=== PATIENT | male | born 1975 | race Caucasian/White ===

== ENCOUNTER → 2019-04-10 12:07 | Outpatient (CLI) | payer OTHER, SELFPAY ==
--- NOTE | 2019-04-10 12:14 | RAD_ITS ---
STUDY: X-RAY CHEST REASON FOR EXAM: Male, 44 years old. Fecal debris within. TECHNIQUE: PA and lateral views of the chest. COMPARISON: None. FINDINGS: There is a small calcified granuloma within the left mid lower lung field measuring 7 mm. Remainder of the lungs are clear and expanded. There is no demonstrated pleural abnormality. Normal size heart. Normal mediastinum and yamile. Normal visualized pulmonary arteries. Normal visualized aortic arch and descending thoracic aorta. Normal visualized thoracic spine. Postoperative changes of the right humeral head with fixation screws suggestive of rotator cuff disease. There is no demonstrated abnormality of the visualized soft tissue structures of the upper abdomen. RAD/Chest PA and Lateral IMPRESSION: No acute cardiopulmonary disease. Electronically Signed: Sena James MD at 1:32 EST , Service support ,
== END ==
LOC: MTLAB 12:10 → MTRAD 12:14
PROVIDERS: Family Provider Family Medicine; PCP Family Medicine; Referring Provider Family Medicine; Visit Provider Family Medicine
DX: J45.909 Unspecified asthma, uncomplicated (principal)
CPT/HCPCS: 71046

== ENCOUNTER → 2019-10-18 08:48 | Outpatient (CLI) | payer OTHER, SELFPAY ==
[2019-10-18 10:25] LABS: Absolute Lymphocyte Count 2.11 X10^3/uL (0.83-4.51); Absolute Neutrophil Count 6.6 X10^3/uL (2.0-7.7); Basophil# 0.06 X10^3/uL; Basophil% 0.6 % (0-1); Eosinophil# 0.47 X10^3/uL; Eosinophils% 4.8 % (0-5); Hematocrit 50.7 % (40-54); Hemoglobin 16.7 g/dL (13.0-16.5); Lymphocyte # 2.11 X10^3/ul (4.0); Lymphocyte % 21.4 % (19-41); Mean Corp Hgb Conc 32.9 g/dL (32-36); Mean Corpuscular Hgb 29.6 pg (27.0-32.0); Mean Corpuscular Volume 89.9 fL (80-94); Mean Platelet Vol. 10.2 fl (6.2-12.0); Monocyte# 0.58 X10^3/uL; Monocyte% 5.9 % (0-10); NRBC Flagged by Analyzer 0 % (0-5); Neutrophil # 6.61 X10^3/uL (2.7-7.7); Neutrophil % 66.9 % (47-70); Platelet Count 258 K/mm3 (150-450); RBC Distribution Width CV 13.8 % (11.6-14.6); RBC Distribution Width SD 45.2 fl (35.1-43.9); Red Blood Count 5.64 M/mm3 (4.6-6.2); White Blood Count 9.9 K/mm3 (4.4-11.0)
[2019-10-18 10:32] LABS: Anion Gap 6 (5-15); BUN 9 mg/dL (7-18); BUN/Creat Ratio 8.9 RATIO (10-20); Calcium,Total 8.9 mg/dL (8.5-10.1); Chloride 110 mmol/L (98-107); Creatinine, Serum 1.01 mg/dL (0.70-1.30); EST Glomerular Filtration Rate 85 mL/min (>60); Est Glom Filt Rate - Afr Amer 103 mL/min (>60); Glucose 98 mg/dL (74-106); Potassium 4.1 mmol/L (3.5-5.1); Sodium Level 141 mmol/L (136-145)
== END ==
PROVIDERS: PCP Family Medicine; Referring Provider Family Medicine; Visit Provider Family Medicine
DX: I10 Essential (primary) hypertension (principal); J45.909 Unspecified asthma, uncomplicated
CPT/HCPCS: 36415; 80048; 85025

== ENCOUNTER → 2020-04-09 09:42 | Outpatient (CLI) | payer OTHER, SELFPAY ==
[2020-04-09 12:36] LABS: Absolute Lymphocyte Count 2.07 X10^3/uL (0.83-4.51); Absolute Neutrophil Count 5.1 X10^3/uL (2.0-7.7); Basophil# 0.06 X10^3/uL; Basophil% 0.7 % (0-1); Eosinophil# 0.34 X10^3/uL; Hematocrit 50.8 % (40-54); Hemoglobin 16.5 g/dL (13.0-16.5); Lymphocyte # 2.07 X10^3/ul (4.0); Lymphocyte % 24.5 % (19-41); Mean Corp Hgb Conc 32.5 g/dL (32-36); Mean Corpuscular Hgb 29.3 pg (27.0-32.0); Mean Corpuscular Volume 90.2 fL (80-94); Mean Platelet Vol. 10.4 fl (6.2-12.0); Monocyte# 0.72 X10^3/uL; Monocyte% 8.5 % (0-10); NRBC Flagged by Analyzer 0 % (0-5); Neutrophil # 5.12 X10^3/uL (2.7-7.7); Neutrophil % 60.5 % (47-70); Platelet Count 275 K/mm3 (150-450); RBC Distribution Width CV 13.2 % (11.6-14.6); RBC Distribution Width SD 43.4 fl (35.1-43.9); Red Blood Count 5.63 M/mm3 (4.6-6.2); White Blood Count 8.5 K/mm3 (4.4-11.0)
[2020-04-09 12:49] LABS: Anion Gap 5 (5-15); BUN 17 mg/dL (7-18); BUN/Creat Ratio 18.1 RATIO (10-20); Calcium,Total 9.3 mg/dL (8.5-10.1); Chloride 106 mmol/L (98-107); Cholesterol 247 mg/dL (200); Creatinine, Serum 0.94 mg/dL (0.70-1.30); EST Glomerular Filtration Rate 92 mL/min (>60); Est Glom Filt Rate - Afr Amer 112 mL/min (>60); Glucose 73 mg/dL (74-106); High Density Lipoprotein 34 mg/dL; Potassium 3.9 mmol/L (3.5-5.1); Sodium Level 139 mmol/L (136-145); Triglycerides 190 mg/dL; Very Low Density Lipoprotein 38 mg/dL (5-40)
[2020-04-09 13:09] LABS: Microalbumin,Random Urine < 5.0 mg/L (NO RANGE EST.)
== END ==
PROVIDERS: PCP Family Medicine; Referring Provider Family Medicine; Visit Provider Family Medicine
DX: I10 Essential (primary) hypertension (principal); F17.200 Nicotine dependence, unspecified, uncomplicated
CPT/HCPCS: 36415; 80048; 80061; 82043; 82570; 85025

== ENCOUNTER → 2021-11-26 | Outpatient (CLI) | payer OTHER, SELFPAY ==
[2021-11-26 10:28] LABS: Erythrocyte Sedimentation Rate 42 mm/hr (0-20)
[2021-11-26 10:29] LABS: Absolute Lymphocyte Count 1.38 X10^3/uL (0.83-4.51); Absolute Neutrophil Count 8.5 X10^3/uL (2.0-7.7); Basophil# 0.05 X10^3/uL; Basophil% 0.4 % (0-1); Eosinophil# 0.13 X10^3/uL; Eosinophils% 1.1 % (0-5); Hematocrit 45.8 % (40-54); Hemoglobin 15.4 g/dL (13.0-16.5); Lymphocyte # 1.38 X10^3/ul (0.83-4.51); Lymphocyte % 12.2 % (19-41); Mean Corp Hgb Conc 33.6 g/dL (32-36); Mean Corpuscular Volume 89.3 fL (80-94); Mean Platelet Vol. 10.2 fl (6.2-12.0); Monocyte# 1.24 X10^3/uL; Monocyte% 10.9 % (0-10); NRBC Flagged by Analyzer 0 % (0-5); Neutrophil # 8.47 X10^3/uL (2.7-7.7); Neutrophil % 74.7 % (47-70); Platelet Count 410 K/mm3 (150-450); RBC Distribution Width CV 13.1 % (11.6-14.6); RBC Distribution Width SD 42.9 fl (35.1-43.9); Red Blood Count 5.13 M/mm3 (4.6-6.2); White Blood Count 11.4 K/mm3 (4.4-11.0)
[2021-11-26 10:48] LABS: ALB/GLOB Ratio 0.8 RATIO (0.9-2.4); AST(SGOT) 15 U/L (15-37); Alanine Aminotransfer ALT/SGPT 27 U/L (16-61); Albumin, Serum 3.3 g/dL (3.2-5.0); Alkaline Phosphatase 78 U/L (45-117); Anion Gap 5 (5-15); BUN 19 mg/dL (7-18); BUN/Creat Ratio 17.6 RATIO (10-20); Calcium,Total 8.8 mg/dL (8.5-10.1); Chloride 108 mmol/L (98-107); Cholesterol 193 mg/dL (200); Creatinine, Serum 1.08 mg/dL (0.70-1.30); EST Glomerular Filtration Rate 78 mL/min (>60); Est Glom Filt Rate - Afr Amer 94 mL/min (>60); Globulin 4.2 g/dL (2.2-4.2); Glucose 91 mg/dL (74-106); High Density Lipoprotein 33 mg/dL; Potassium 3.8 mmol/L (3.5-5.1); Protein, Total 7.5 g/dL (6.4-8.2); Sodium Level 139 mmol/L (136-145); Triglycerides 180 mg/dL; Very Low Density Lipoprotein 36 mg/dL (5-40)
[2021-11-26 10:54] LABS: Microalbumin,Random Urine 7.5 mg/L (NO RANGE EST.); Microalbumin:Creatinine Ratio 4.8 mg/g CRE (<30 mg/g CRE)
== END | disposition home or self-care (01) ==
LOC: MFPLAB 08:34
PROVIDERS: PCP Family Medicine; Referring Provider Family Medicine; Visit Provider Family Medicine
DX: R53.83 Other fatigue (principal); E78.00 Pure hypercholesterolemia, unspecified; I10 Essential (primary) hypertension; J45.909 Unspecified asthma, uncomplicated
CPT/HCPCS: 36415; 80053; 80061; 82043; 82570; 84443; 85025; 85652

== ENCOUNTER 2021-11-27 16:31 | Emergency (ER) | payer OTHER, SELFPAY ==
[2021-11-27 16:34] VITALS: BP 166/87; PULSE 101; RESP 18; TEMP 36.9; O2SAT 96; BMI 31.0
--- NOTE | 2021-11-27 17:46 | CT_ITS ---
EXAM: CT ANGIOGRAPHY CHEST WITHOUT AND WITH INTRAVENOUS CONTRAST CLINICAL INDICATION: pulmonary embolism TECHNIQUE: Helically acquired angiography images were obtained of the chest without and with intravenous contrast. This CT exam was performed using one or more of the following dose reduction techniques: automated exposure control, adjustment of the mA and/or kV according to patient size, and/or use of iterative reconstruction technique. This report was created using [employer] report generation technology. MIP reconstructed images were created and reviewed. CONTRAST: IV 100mL Isovue-370 COMPARISON: None. FINDINGS: PULMONARY ARTERIES: Unremarkable. Normal in caliber. No evidence of pulmonary embolism. AORTA: Unremarkable. Normal in caliber. No evidence of dissection. GREAT VESSELS OF AORTIC ARCH: Unremarkable. Normal in caliber. No evidence of dissection. LUNGS AND PLEURAL SPACES: Calcified left lower lobe granuloma. No mass. No pleural effusion or thickening. No pneumothorax. HEART: Unremarkable. Heart size is normal. No pericardial effusion. No signs of right heart strain, ratio of right ventricle to left ventricle measures less than 1. MEDIASTINUM: Unremarkable. No mediastinal or hilar adenopathy. Esophagus is unremarkable. No hiatal hernia. THYROID: Unremarkable. No thyroid lesions. BONES/JOINTS: Unremarkable. No suspicious lytic or blastic abnormality. LYMPH NODES: Calcified lymph nodes in the left lung hilum. CT/CTA Chest W/WO Contrast IMPRESSION: 1. No acute findings. 2. Old healed granulomatous disease. Electronically Signed: Eladia Nieves MD at 19:16 EDT Reading Location ID and State: [id number] / Tel , Service support ,
[2021-11-27 17:58] LABS: Absolute Neutrophil Count 7.5 X10^3/uL (2.0-7.7); Basophil# 0.06 X10^3/uL; Basophil% 0.6 % (0-1); Eosinophil# 0.12 X10^3/uL; Eosinophils% 1.1 % (0-5); Hematocrit 44.2 % (40-54); Hemoglobin 15.1 g/dL (13.0-16.5); Lymphocyte % 19.6 % (19-41); Mean Corp Hgb Conc 34.2 g/dL (32-36); Mean Corpuscular Hgb 30.3 pg (27.0-32.0); Mean Corpuscular Volume 88.8 fL (80-94); Mean Platelet Vol. 10.1 fl (6.2-12.0); Monocyte# 0.93 X10^3/uL; Monocyte% 8.7 % (0-10); NRBC Flagged by Analyzer 0 % (0-5); Neutrophil # 7.45 X10^3/uL (2.7-7.7); Neutrophil % 69.4 % (47-70); Platelet Count 378 K/mm3 (150-450); RBC Distribution Width CV 13.2 % (11.6-14.6); RBC Distribution Width SD 43.1 fl (35.1-43.9); Red Blood Count 4.98 M/mm3 (4.6-6.2); White Blood Count 10.7 K/mm3 (4.4-11.0)
[2021-11-27 18:18] LABS: ALB/GLOB Ratio 0.8 RATIO (0.9-2.4); AST(SGOT) 19 U/L (15-37); Alanine Aminotransfer ALT/SGPT 27 U/L (16-61); Albumin, Serum 3.1 g/dL (3.2-5.0); Alkaline Phosphatase 75 U/L (45-117); Anion Gap 4 (5-15); BUN 13 mg/dL (7-18); BUN/Creat Ratio 11.7 RATIO (10-20); Calcium,Total 8.8 mg/dL (8.5-10.1); Chloride 109 mmol/L (98-107); Creatinine, Serum 1.11 mg/dL (0.70-1.30); EST Glomerular Filtration Rate 76 mL/min (>60); Est Glom Filt Rate - Afr Amer 91 mL/min (>60); Estimated Creatinine Clearance 91.27 ml/min; Glucose 108 mg/dL (74-106); Potassium 3.9 mmol/L (3.5-5.1); Protein, Total 7.1 g/dL (6.4-8.2); Sodium Level 140 mmol/L (136-145); Troponin-I HS 4 pg/mL (3.0-78.0)
--- NOTE | 2021-11-27 19:18 | EX.ED.DYSGE1 ---
HPI History of Present Illness Chief Complaint: Shortness of Breath Informant: patient Narrative Narrative: 46-year-old male states that he was recently diagnosed with COVID. He states that he continues to feel fatigue and have shortness of breath. He went to see his doctor yesterday as part of a yearly physical. Apparently a D-dimer was drawn which was elevated and he was sent to the emergency department today for CT to rule out pulmonary embolism. Patient does endorse some mild shortness of breath. States he was treated with Paxlovid and has asthma. He started to feel better but then started to feel worse again. PFSH PFSH Home Medications fluticasone 250 mcg-salmeterol 50 mcg/dose blistr powdr for inhalation (Advair Diskus) ea inhalation 11/27/21 [History Last Taken Unknown] fluticasone propionate 250 mcg/actuation blister powder for inhalation (Flovent Diskus) ea inhalation 11/27/21 [History Last Taken Unknown] pravastatin 10 mg tablet tab 11/27/21 [History Last Taken Unknown] quinapril 5 mg tablet tab 11/27/21 [History Last Taken Unknown] Allergy/AdvReac Type Severity Reaction Status Date / Time No Known Allergies Allergy Verified 11/27/21 16:34 Social History (Updated 11/27/21 @ 19:[address] Agus Willson, DO) Smoking Status: Current every day smoker tobacco type: cigarettes substance use type: does not use ROS ROS ED ROS Narrative Fatigue Constitutional Constitutional ED: Denies chills, fever(s) or weight loss Eyes Eyes: Denies change in vision or diplopia ENT ENT ED: Denies ear pain, rhinorrhea or sore throat Cardiovascular Cardiovascular: Denies chest pain, orthopnea, palpitations or racing heartbeat Respiratory/Chest Respiratory/Chest: Reports dyspnea; Denies cough or orthopnea Gastrointestinal Gastrointestinal: Denies abdominal pain, diarrhea, nausea or vomiting Genitourinary Genitourinary ED: Denies dysuria, hematuria or urinary frequency Musculoskeletal Musculoskeletal: Denies arthralgias or myalgias Integumentary Denies abscess or rash Neurologic Neurologic: Denies headache(s) or weakness Psychiatric Psychiatric: Denies anxiety, depression, suicidal ideation or suicidal thoughts Endocrine Endocrinology: Denies polydipsia, polyphagia or polyuria Allergic/Immunologic Allergic/Immunologic ED: Denies mouth swelling, tongue swelling or urticaria EXAM Physical Exam Const Vital Signs: 11/27/21 16:34 11/27/21 17:19 11/27/21 19:23 Temperature 98.5 F Temperature Source Temporal Pulse Rate 101 H 91 Respiratory Rate 18 18 Respiratory Effort Normal Non-Labored Respiratory Depth Normal Respiratory Pattern Normal Blood Pressure 166/87 H 131/88 H Blood Pressure Mean 113 Pulse Ox 96 96 Oxygen Delivery Method Room Air Positive well nourished and well developed General Appearance ED: well developed HEENT Reports normocephalic, head/scalp atraumatic and moist mucous membranes Eyes PERRL and EOMs intact bilaterally Neck no lymphadenopathy, supple and no JVD Resp normal respiratory effort and clear to auscultation bilaterally Cardio regular rate, regular rhythm and no murmurs GI normal to inspection, nondistended, normoactive bowel sounds and non-tender Palpation: soft Back/Spine no CVA tenderness and normal ROM Extremity normal to inspection General Extremety ED: Negative for edema General Extremity: Negative for edema Neuro oriented x3 and CN's II-XII intact bilaterally Sensorium / Orientation: alert Motor Exam: strength 5/5 throughout Psych mental status grossly normal Mood & Affect: Negative for depressed or tearful Skin no rashes or lesions noted and no wounds MDM MDM MDM Narrative Medical decision making narrative: Basic blood work showed a white count 10.7. Creatinine 1.[address] of the chest was obtained this demonstrates no pulmonary embolism. Old granulomatous disease was noted. Please see radiology read for details. This point think the patient can be discharged home instructions to follow-up with his doctor return if worsening or concerns Lab Data Attestation: I reviewed the patient's lab results. Labs: Laboratory Results - last 24 hr 11/27/21 11/27/21 17:48 17:48 WBC 10.7 RBC 4.98 Hgb 15.1 Hct 44.2 MCV 88.8 MCH 30.3 MCHC 34.2 RDW Std Deviation 43.1 RDW Coeff of Lisa 13.2 Plt Count 378 MPV 10.1 Immature Gran % (Auto) 0.600 Neut % (Auto) 69.4 Lymph % (Auto) 19.6 Dickey % (Auto) 8.7 Eos % (Auto) 1.1 Baso % (Auto) 0.6 Absolute Neuts (auto) 7.5 Absolute Lymphs (auto) 2.10 Nucleated RBC % 0 Sodium 140 Potassium 3.9 Chloride 109 H Carbon Dioxide 27.0 Anion Gap 4 L BUN 13 Creatinine 1.11 Estim Creat Clear Calc 91.27 Est GFR (MDRD) Af Amer 91 Est GFR (MDRD) Non-Af 76 BUN/Creatinine Ratio 11.7 Glucose 108 H Calcium 8.8 Total Bilirubin 0.50 AST 19 ALT 27 Alkaline Phosphatase 75 Troponin I High Sens 4 Total Protein 7.1 Albumin 3.1 L Globulin 4.0 Albumin/Globulin Ratio 0.8 L Radiography Diagnostic Testing: Clinical Impression(s) from Imaging Studies Chest CTA 11/27/21 17:46 IMPRESSION: 1. No acute findings. 2. Old healed granulomatous disease. Electronically Signed: Eladia Nieves MD at 19:16 EDT Reading Location ID and State: [id number] / Tel , Service support , Discharge Plan Triage Chief Complaint: Shortness of Breath ED Provider: Agus Willson Dx/Rx/DC Orders Clinical Impression: COVID-19, Acute dyspnea Instructions: ED Dyspnea Prescriptions: No Action fluticasone propion-salmeterol [Advair Diskus] 250-50 mcg/dose blister with device INHALATION Label Comments: INHALE 1 (ONE) puff BY MOUTH TWICE DAILY pravastatin 10 mg tablet Label Comments: TAKE 1 TABLET BY MOUTH DAILY quinapril 5 mg tablet Label Comments: TAKE 1 TABLET BY MOUTH EVERY DAY Flovent Diskus 250 mcg/actuation blister with device INHALATION Label Comments: INHALE 1 (ONE) puff BY MOUTH EVERY DAY. (use when stepping down from advair.) Primary Care Provider: Manny Barber Referrals: Manny Barber MD [Primary Care Provider] - [facility] appointment Disposition Disposition: Home, Self Care
[2021-11-27 19:23] VITALS: BP 131/88; PULSE 91; RESP 18; O2SAT 96
== END 2021-11-27 19:28 | disposition home or self-care (01) ==
PROVIDERS: Emergency Provider Emergency Medicine; PCP Family Medicine; Visit Provider Emergency Medicine
DX: U07.1 COVID-19 (principal); F17.210 Nicotine dependence, cigarettes, uncomplicated; R06.00 Dyspnea, unspecified; J45.909 Unspecified asthma, uncomplicated
CPT/HCPCS: 71275; 80053; 84484; 85025; 99283; Q9967; A4216

== ENCOUNTER → 2021-11-27 | Outpatient (CLI) | payer OTHER, SELFPAY ==
--- NOTE | 2021-11-27 11:05 | RAD_ITS ---
EXAM: XR CHEST, 2 VIEWS CLINICAL INDICATION: elevated ESR and WBC TECHNIQUE: Frontal and lateral views of the chest. This report was created using [employer] report generation technology. COMPARISON: XR Chest dated 04/10/2019 FINDINGS: LUNGS AND PLEURAL SPACES: Dense nodule within the left lung unchanged. No acute pulmonary abnormality. No pneumothorax. No effusion. HEART: Normal. Normal heart size. MEDIASTINUM: Central airways and mediastinal contour are unremarkable. BONES/JOINTS: Old right clavicular fracture again noted. SOFT TISSUES: Normal. RAD/Chest PA and Lateral IMPRESSION: No acute cardiopulmonary abnormality. No interval change. Electronically Signed: Jason Thomas MD at 13:27 EDT ,
[2021-11-27 15:23] LABS: D-Dimer Quantitative (DVT/PE) 1.78 FEU/ug/m (0.27-0.49)
== END | disposition home or self-care (01) ==
PROVIDERS: PCP Family Medicine; Referring Provider Family Medicine; Visit Provider Family Medicine
DX: R70.0 Elevated erythrocyte sedimentation rate (principal)
CPT/HCPCS: 36415; 71046; 85379

== ENCOUNTER → 2023-06-10 | Outpatient (CLI) | payer OTHER, SELFPAY ==
--- OUTSIDE RECORDS SUMMARY | 2023-06-10 08:58 | XMS RPT_ITS | CCD ---
Author Name Unknown Address [address] [place] [address] Organization [facility] Results Test Name Value Interpretation Reference Range Facil ity Summary Purpose Family History No Family History Records Found Advance Directives No Advanced Directives Records Found Additional Source Comments (unrecognized sect ion and content) No Status Records Found INFORMATION SOURCE (unrecogn ized section and content) FOR RECORDS PERTAINING TO PATIENTS WHO ARE OR HAVE BEEN ENROLLED IN A CHEMICAL DEPENDENCY/SUBSTANCEABUSE PROGRAM, SOME INFORMATION MAY BE OMITTED. This clinical summary was aggregated from multiple sources. Caution should be exercised in using it in the provision of clinical care. This summary normalizes information from multiple sources, and as a consequence, information in this document may materially change the coding, format and clinical context of patient data. In addition, data may be omitted in some cases. CLINICAL DECISIONS SHOULD BE BASED ON THE PRIMARY CLINICAL RECORDS. [employer] provides no warranty or guarantee of the accuracy or completeness of information in this document.
--- NOTE | 2023-06-10 09:02 | RAD_ITS ---
INDICATION: LOW BACK PAIN EXAMINATION/TECHNIQUE: X-RAY - XR Spine Lumbar Min 4 Views COMPARISON: None. FINDINGS: VERTEBRAE: Preserved vertebral body height. No fracture. No spondylolisthesis. Preservation of the normal lumbar lordosis. Mild multilevel facet arthropathy DISCS: Mild multilevel degenerative disc disease and spondylosis. INCLUDED ABDOMEN: Included bowel gas pattern is non-obstructive. RAD/L/S Spine Min 4 Views IMPRESSION: No evidence of lumbar spinal fracture or spondylolisthesis. Mild multilevel degenerative disc disease and spondylosis. Electronically Signed: Dalton Adams MD at 17:17 EST ,
[2023-06-10 10:05] LABS: Hemoglobin 16.2 g/dL (13.0-16.5); Mean Corp Hgb Conc 32.4 g/dL (32-36); Mean Corpuscular Hgb 29.3 pg (27.0-32.0); Mean Corpuscular Volume 90.6 fL (80-94); Mean Platelet Vol. 10.3 fl (6.2-12.0); Platelet Count 244 K/mm3 (150-450); RBC Distribution Width CV 13.8 % (11.6-14.6); Red Blood Count 5.52 M/mm3 (4.6-6.2); White Blood Count 9.3 K/mm3 (4.4-11.0)
[2023-06-10 11:13] LABS: AST(SGOT) 24 U/L (15-37); Alanine Aminotransfer ALT/SGPT 28 U/L (16-61); Albumin, Serum 3.7 g/dL (3.2-5.0); Alkaline Phosphatase 65 U/L (45-117); Anion Gap 5 (5-15); BUN 19 mg/dL (7-18); BUN/Creat Ratio 18.1 RATIO (10-20); Calcium,Total 9.4 mg/dL (8.5-10.1); Chloride 111 mmol/L (98-107); Creatinine, Serum 1.05 mg/dL (0.70-1.30); EST Glomerular Filtration Rate 80 mL/min (>60); Est Glom Filt Rate - Afr Amer 97 mL/min (>60); Globulin 3.8 g/dL (2.2-4.2); Glucose 96 mg/dL (74-106); Potassium 4.4 mmol/L (3.5-5.1); Protein, Total 7.5 g/dL (6.4-8.2); Sodium Level 142 mmol/L (136-145)
[2023-06-10 11:14] LABS: Microalbumin,Random Urine 5.8 mg/L (NO RANGE EST.); Microalbumin:Creatinine Ratio 4.9 mg/g CRE (<30 mg/g CRE)
[2023-06-13 15:07] LABS: PROEL- A/G Ratio 1.1 (0.7-1.7); PROEL- Albumin 3.6 g/dL (2.9-4.4); PROEL- Alpha-1 Globulin 0.3 g/dL (0.0-0.4); PROEL- Alpha-2 Globulin 0.9 g/dL (0.4-1.0); PROEL- Globulin, Total 3.3 g/dL (2.2-3.9); PROEL- TOTAL PROTEIN 6.9 g/dL (6.0-8.5); PROEL-M-Spike Not Observed g/dL (Not Observed)
== END | disposition home or self-care (01) ==
LOC: MTLAB 08:42
PROVIDERS: PCP Family Medicine; Referring Provider Family Medicine; Visit Provider Family Medicine
DX: M54.50 Low back pain, unspecified (principal); I10 Essential (primary) hypertension
CPT/HCPCS: 36415; 72110; 80053; 82043; 82570; 84153; 84165; 85027; G0103

== ENCOUNTER 2023-07-28 17:00 | Outpatient (RCR) | payer OTHER, SELFPAY ==
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
--- NOTE | 2023-08-01 18:37 | HP.PTDCSUM ---
Discharge Summary D/C summary: It has been my pleasure to treat KHANG VAZ referred by Dr. Manny Barber MD, with the diagnosis of CHRONIC LBP, R L1 RADIC AND SI JT TENDERNESS, T-S PAIN. for a total of 8 visit(s). Discharge Date: 08/01/23 Please see the following information for a summary of their discharge status. Subjective Subjective: PATIENT REPORTS HE CAN MOVE CERTAIN WAYS NOW WITH LESS PAIN SINCE STARTING PHYSICAL THERAPY BUT OVER ALL THERE ISN'T MUCH CHANGE. HE SAID HIS UPPER BACK FEELS A LOT BETTER BUT THAT WASN'T THE MAIN CONCERN. HE REPORTS HE IS STILL HAVING A LOT OF CENTRAL LOW BACK PAIN AND R QUAD AREA PAIN. PATIENT REPORTS INTERMITTNET SATINDER FOOT TINGLING BUT NOT VERY OFTEN. STILL GETTING INTERMITTENT PINCHING IN R HIP WITH GAIT DEPENDING ON HOW ACTIVE. PATIENT DENIES ANY WORSENING OF SX'S SINCE STARTING PT. Pain Bilateral Back: Pain Intensity (Out of 10): 4 R THIGH: Pain Intensity (Out of 10): 2 Overall Improvement % Improvement: 10 Objective Objective/Function: PATIENT WAS SEEN TODAY FOR RE-ASSESSMENT OF PROGRESS TOWARD THE SET PT GOALS AND THE NEED FOR FURTHER PHYSICAL THERAPY VS READINESS FOR DISCHARGE. PATIENT IS NOT PROGRESSING. UPON EXAM TODAY: Motor deficit: SATINDER LE'S GROSSLY 5/5 EXCEPT L HIP 4/5. Dural Signs: NEGATIVE SATINDER LE'S. Lumbar mvmt loss: flex - NIL - CATCH ON THE WAY DOWN AND CAUSES SHARP PAIN THEN IT GOES AWAY - NW ext - MIN - REP EXT - B R SG - MOD - INCREASE - W L SG - MIN - INCREASE - W THORACIC MVMT LOSS: R ROT - MOD - INCREASES - P M. SPASM - W L ROT - MOD - INCREASES - P M. SPASM - W EXTENSION - MIN - B Core strength: POOR Goals Goal 1:: DECREASE C/O BACK AND R LE SX'S BY AT LEAST 50% TO EASE WORK AND SLEEP FUNCTION Goal Progress: Not Progressing Goal 2:: IMPROVE CORE AND R HIP STRENGTH TO IMPROVE FUNCTION AND DECREASE PAIN Goal Progress: Not Progressing Goal 3:: IMPROVE POSTURAL CONTROL AND ENDURANCE TO EASE PAIN Goal Progress: Not Progressing Goal 4:: IMPROVE SPINE AND LE FLEXIBILITY TO IMPROVE FUNCTION Goal Progress: Not Progressing Goal 5:: PATIENT WILL SCORE AT LEAST 5 POINTS BETTER ON BACK OSWESTRY Goal Progress: Not Progressing Goal 6:: INDEP HEP Goal Progress: Not Progressing Plan Plan: D/C. PHYSICIAN RE-ASSESSMENT RECOMMENDED. PATIENT AGREEABLE. D/C Information d/c sentence: If there are questions or concerns regarding this patient's physical therapy, please feel free to call me at [phone]. Thank you for the referral of this patient. Sincerely, Shanna Wheeler, PT, Cert MDT Balance/Gait/Functional tests Balance/Special Test Scores Oswestry Low Back Score: 19 Improvement % Improvement: 10
== END 2023-07-28 19:00 | disposition home or self-care (01) ==
LOC: PT 17:00
PROVIDERS: PCP Family Medicine; Referring Provider Family Medicine; Visit Provider Family Medicine
DX: M54.50 Low back pain, unspecified (principal); M54.6 Pain in thoracic spine; M54.16 Radiculopathy, lumbar region; G89.29 Other chronic pain
CPT/HCPCS: 97113; 97162

== ENCOUNTER → 2023-08-29 | Outpatient (CLI) | payer OTHER, SELFPAY ==
--- NOTE | 2023-08-29 16:14 | MRI_ITS ---
STUDY: MRI LUMBAR SPINE WITHOUT CONTRAST REASON FOR EXAM: Male, 48 years old. low back pain w/ radating rt TECHNIQUE: Standardized fat and water weighted pulse sequences were obtained in the sagittal and axial planes. COMPARISON: X-ray the lumbar spine dated June 10, 2023 FINDINGS: Normal lumbar lordosis. There is no substantial scoliosis. Normal conus medullaris that terminates at the L1 level. No marrow edema or fracture or compression deformity is present. Benign fatty hemangiomas are present in several vertebral bodies. No suspicious lesions are present. There is no evidence of infection. No epidural fluid collections are present. T12-L1: Normal endplates. Normal disc height, hydration and morphology. Normal bilateral facet joints. Normal central canal and bilateral lateral recesses. Normal bilateral intervertebral neural foramina. L1-2: Normal endplates. Normal disc height, hydration and morphology. Normal bilateral facet joints. Normal central canal and bilateral lateral recesses. Normal bilateral intervertebral neural foramina. L2-3: Normal endplates. Normal disc height, hydration and morphology. Normal bilateral facet joints. Normal central canal and bilateral lateral recesses. Normal bilateral intervertebral neural foramina. L3-4: Normal endplates. Normal disc height, hydration and morphology. Mild facet joint hypertrophy. Normal central canal and bilateral lateral recesses. Normal bilateral intervertebral neural foramina. L4-5: Normal endplates. Normal disc height, hydration and morphology. Mild facet joint hypertrophy. Normal central canal and bilateral lateral recesses. Normal bilateral intervertebral neural foramina. L5-S1: Normal endplates. Normal disc height, hydration and morphology. Normal bilateral facet joints. Normal central canal and bilateral lateral recesses. Normal bilateral intervertebral neural foramina. Normal visualized sacral ala. Normal visualized paraspinous soft tissue structures. MRI/Spine Lumbar (Routine) IMPRESSION: 1. Minimal degenerative changes, as described above. Electronically Signed: Mo Dean MD at 10:03 EDT ,
== END | disposition home or self-care (01) ==
LOC: MRI 16:11
PROVIDERS: PCP Family Medicine; Referring Provider Family Medicine; Visit Provider Family Medicine
DX: M54.50 Low back pain, unspecified (principal)
CPT/HCPCS: 72148

== ENCOUNTER → 2024-10-09 | Outpatient (CLI) | payer OTHER, SELFPAY ==
--- OUTSIDE RECORDS SUMMARY | 2024-10-09 09:25 | XMS RPT_ITS | CCD ---
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 Info: 2856-04 - PSA Result Comment: Non- GFR Calc Performed By: #### L 501.9910, L100.0500, L500.4050, L502.0250, L3100.3450 #### [facility] [address] [place], [address] Globulin (S) [Mass/Vol] 3.8 g/dL Normal 2.2-4.2 [facility] Comment on above: Order Comment: Order Date: 06/10/23 Order Info: [id number] - CMP Order Info: 2856-04 - PSA Performed By: #### L 501.9910, L100.0500, L500.4050, L502.0250, L3100.3450 #### [facility] [address] [place], [place], [id number] [phone] Glucose [Mass/Vol] 96 mg/dL Normal 74-106 [facility] Comment on above: Order Comment: Order Date: 06/10/23 Order Info: 0786- - CMP Order Info: [id number] - PSA Performed By: #### L 501.9910, L100.0500, L500.4050, L502.0250, L3100.3450 #### [facility] [address] [place], [place], [id number] Potassium [Moles/Vol] 4.4 mmol/L Normal 3.5-5.1 [facility] Comment on above: Order Comment: Order Date: 06/10/23 Order Info: 0786- - CMP Order Info: [id number] - PSA Performed By: #### L 501.9910, L100.0500, L500.4050, L502.0250, L3100.3450 #### [facility] [address] [place], [address] Sodium [Moles/Vol] 142 mmol/L Normal 136-145 [facility] Comment on above: Order Comment: Order Date: 06/10/23 Order Info: [id number] - CMP Order Info: 28510-23 - PSA Performed By: #### L 501.9910, L100.0500, L500.4050, L502.0250, L3100.3450 #### [facility] [address] [place], [place], [address] T PROT 7.5 g/dL Normal 6.4-8.2 [facility] Comment on above: Order Comment: Order Date: 06/10/23 Order Info: [id number] - CMP Order Info: [id number] - PSA Performed By: #### L 501.9910, L100.0500, L500.4050, L502.0250, L3100.3450 #### [facility] [address] [place], [address] Urea nitrogen [Mass/Vol] 19 mg/dL High 7-18 [facility] Comment on above: Order Comment: Order Date: 06/10/23 Order Info: [id number] - CMP Order Info: 2857-1 - PSA Performed By: #### L 501.9910, L100.0500, L500.4050, L502.0250, L3100.3450 #### [facility] [address] [place], [place], [address] Determination of erythrocyte mean corpuscular volume (MCV)Ordered By: Manny Barber on 06-10-2023 MCV (RBC) [Entitic vol] 90.6 fL 80-94 [facility] Erythrocyte distribution wid th ratioOrdered By: Manny Barber on 06-10-2023 Erythrocyte distribution width (RBC) [Ratio] 13.8 % 11.6-14.6 [facility] Erythrocyte distribution wid th standard deviationOrdered By: Manny Barber on 06-10-2023 Erythrocyte distribution width (RBC) [Entitic vol] 46.0 fL 35.1-43.9 [facility] Hematocrit Auto (Bld) [Volum e fraction]Ordered By: Manny Barber on 06-10-2023 Hematocrit (Bld) [Volume fraction] 50.0 % 40-54 [facility] L/S Spine Min 4 Viewson 05-26 L/S Spine Min 4 Views [facility] [address] [place] [address] L/S Spine Min 4 Views MR#: [id number] Acct: [id number] Name: KHANG VAZ Rep #: [id number] : 1975 M 48 From: Dalton angulo MD PCP: Dr. Manny Barber MD Status: REG CLI Study: L/S Spine Min 4 Views Date of Exam: 06/10/23 Exam# [id number] Ordering Dr: Manny Barber MD [id number] INDICATION: LOW BACK PAIN EXAMINATION/TECHNIQUE: X-RAY - XR Spine Lumbar Min 4 Views COMPARISON: None. FINDINGS: VERTEBRAE: Preserved vertebral body height. No fracture. No spondylolisthesis. Preservation of the normal lumbar lordosis. Mild multilevel facet arthropathy DISCS: Mild multilevel degenerative disc disease and spondylosis. INCLUDED ABDOMEN: Included bowel gas pattern is non-obstructive. RAD/L/S Spine Min 4 Views IMPRESSION: No evidence of lumbar spinal fracture or spondylolisthesis. Mild multilevel degenerative disc disease and spondylosis. Electronically Signed: Dalton Adams MD at 17:17 EST , CC: Dr. Manny Barber MD [employer] Tender: Signed Normal [facility] - Chemistry and C hemistry - challengeOrdered By: Manny Barber on 06-10-2023 Albumin/Globulin [Mass ratio] 1.0 {ratio} 0.9-2.4 [facility] ALP [Catalytic activity/Vol] 65 U/L 45-117 [facility] ALT [Catalytic activity/Vol] 28 U/L 16-61 [facility] CO2 [Moles/Vol] 26.0 mmol/L 21.0-32.0 [facility] Globulin (S) [Mass/Vol] 3.8 g/dL 2.2-4.2 [facility] Urea nitrogen/Creatinine [Mass ratio] 18.1 mg/mg 10-20 [facility] - Hematology and Cell countsOrdered By: Manny Barber on 06-10-2023 MCH (RBC) [Entitic mass] 29.3 pg 27.0-32.0 [facility] MCHC (RBC) [Mass/Vol] 32.4 g/dL 32-36 [facility] Platelet mean volume (Bld) [Entitic vol] 10.3 fL 6.2-12.0 [facility] Platelets (Bld) [#/Vol] 244 10*3/uL 150-450 [facility] Microalb:Creat Ratio,Random URon 06-10-2023 Creatinine [Mass/Vol] 118.00 mg/dL Normal NO RAN GE EST. [facility] Comment on above: Order Comment: Order Date: 06/10/23 Order Info: [id number] - MIACRE Performed By: #### L 501.9910, L100.0500, L500.4050, L502.0250, L3100.3450 #### [facility] [address] [place], [address] MALB:CRE 4.9 mg/g CRE Normal <30 mg/g CRE [facility] Comment on above: Order Comment: Order Date: 06/10/23 Order Info: [id number] - MIACRE Performed By: #### L 501.9910, L100.0500, L500.4050, L502.0250, L3100.3450 #### [facility] [address] [place], [address] MICROALBUMIN,UR 5.8 mg/L Normal NO RANGE EST. [facility] Comment on above: Order Comment: Order Date: 06/10/23 Order Info: [id number] - MIACRE Performed By: #### L 501.9910, L100.0500, L500.4050, L502.0250, L3100.3450 #### [facility] [address] [place], [address] No Panel InformationOrdered By: Manny Barber on 06-10-2023 Addendum Document Comment . [facility] Comment on above: The SPE pattern appe ars unremarkable. Evidence ofmonoclonal protein is not apparent.Performed at: [employer] [employer] [id number] Director: Travis Hinojosa PhD, Phone: [phone] Clskj-5-Pzpneqgud 0.3 g/dL 0.0-0.4 [facility] Qvzqm-3-Wfdcwviay 0.9 g/dL 0.4-1.0 [facility] Estimated GFR (MDRD) Amer 97 mL/min >60 [facility] Comment on above: GFR Calc Estimated GFR (MDRD) Non-Af Amer 80 mL/min >60 [facility] Comment on above: Non- GFR Calc Gamma Globulins 1.0 g/dL 0.4-1.8 [facility] Prostate Specific Antigen Screen 1.10 ng/mL 0.00-4.00 [facility] Comment on above: This test was perfor med using the TPSA assay method for [employer] chemistry system. Values obtained with differentassay methods cannot be used interchangably.When changing PSA assays in the course of monitoring apatient, additional sequential testing should be carriedout to confirm baseline values. Urine Microalbumin/Creatinine Ratio 4.9 mg/g CRE <30 [facility] PSA,Total - Annual Screenon 06-10-2023 PSA,TOT SCREEN 1.10 ng/mL Normal 0.00-4.00 [facility] Comment on above: Order Comment: Order Date: 06/10/23 Order Info: [id number] - CMP Order Info: [id number] - PSA Result Comment: This test was performed using the TPSA assay method for the [employer] chemistry system. Values obtained with different assay methods cannot be used interchangably. When changing PSA assays in the course of monitoring a patient, additional sequential testing should be carried out to confirm baseline values. Performed By: #### L 501.9910, L100.0500, L500.4050, L502.0250, L3100.3450 #### [facility] [address] [place], [address] Protein Fractions Elph [Inte rp]Ordered By: Manny Barber on 06-10-2023 Protein Fractions [Interp] Comment . [facility] Comment on above: Protein electrophore sis scan will follow via computer,mail, or activity coordinator delivery. RBC Auto (Bld) [#/Vol]Ordere d By: Manny Barber on 06-10-2023 RBC (Bld) [#/Vol] 5.52 10*6/uL 4.6-6.2 [facility] Serum albumin to globulin ra yoli by protein electrophoresisOrdered By: Manny Barber on 06-10-2023 Albumin/Globulin Elph [Mass ratio] 1.1 0.7-1.7 [facility] Serum globulin measurement ( mass/volume)Ordered By: Manny Barber on 06-10-2023 Globulin (S) [Mass/Vol] 3.3 g/dL 2.2-3.9 [facility] Serum or plasma beta globuli n measurement by electrophoresis (mass/volume)Ordered By: Manny Barber on 06-10-2023 Beta globulin Elph [Mass/Vol] 1.0 g/dL 0.7-1.3 [facility] Serum or plasma calcium jason urement (mass/volume)Ordered By: Manny Barber on 06-10-2023 Calcium [Mass/Vol] 9.4 mg/dL 8.5-10.1 [facility] Serum or plasma creatinine m easurement (mass/volume)Ordered By: Manny Barber on 06-10-2023 Creatinine [Mass/Vol] 1.05 mg/dL 0.70-1.30 [facility] Comment on above: The validity of the calculated GFR & GFRAA in patients over 70 years has not been determined. Clinical correlation is essential. Serum or plasma protein mono clonal measurement by electrophoresis (mass/volume)Ordered By: Manny Barber on 06-10-2023 Protein.monoclonal Elph [Mass/Vol] Not Observed g/dL Not Observed [facility] Serum or plasma urea nitroge n measurement (mass/volume)Ordered By: Manny Barber on 06-10-2023 Urea nitrogen [Mass/Vol] 19 mg/dL 7-18 [facility] Thin prep Papanicolaou smear with manual screeningOrdered By: Manny Barber on 06-10-2023 Thin prep Papanicolaou smear with manual screening 3.7 g/dL 3.2-5.0 [facility] Thin prep Papanicolaou smear with manual screening 24 U/L 15-37 [facility] Thin prep Papanicolaou smear with manual screening 5 5-15 [facility] Thin prep Papanicolaou smear with manual screening 5.8 mg/L NO RANGE EST. [facility] Total protein bloodOrdered B y: Manny Barber on 06-10-2023 Protein [Mass/Vol] 6.9 g/dL 6.0-8.5 [facility] Urine creatinine measurement (mass/volume)Ordered By: Manny Barber on 06-10-2023 Creatinine (U) [Mass/Vol] 118.00 mg/dL NO RANGE EST. 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 Agus Willson DO) Smoking Status: Current every day smoker tobacco type: cigarettes substance use type: does not use HPI HPI Chief Complaint: Department of transportation recertification examination Details: KHANG VAZ, is a 48 M who presents to the office today for Office Procedures Physical Exam Coding PE Coding DOT PE: Yes Coding Level of Care Code No Charge Diagnoses Encounter for examination required by Department of Transportation (DOT) Z02.89 Assessment and Plan Assessment and Plan (1) Encounter for examination required by Department of Transportation (DOT): Status: Acute 05/10/23 0937 Date Demario Neil Signature: Date (if applicable) CC: Normal [facility] Absolute lymphocyte counton 11-27-2021 Lymphocytes Auto (Unsp spec) [#/Vol] 2.10 10*3/uL 0.83-4.51 [facility] Work Phone: Basophil percentageon 2021 Basophils/100 WBC (Bld) 0.6 % 0-1 [facility] Work Phone: Bilirubin [Mass/Vol] 0.50 mg/dL 0.20-1.00 [facility] Work Phone: Comment on above: For patients on eltr ombopag therapy, use of Dimension [place] TBIL is not recommended. Chloride [Moles/Vol] 109 mmol/L 98-107 [facility] Work Phone: Eosinophils/100 WBC (Bld) 1.1 % 0-5 [facility] Work Phone: Glucose [Mass/Vol] 108 mg/dL 74-106 [facility] Work Phone: Comment on above: Fasting Glucose resu lt from 100 to 125 mg/dL suggests IMPAIRED HOMEOSTASIS per A.D.A. criteria. Neutrophils (Bld) [#/Vol] 7.5 10*3/uL 2.0-7.7 [facility] Work Phone: Neutrophils/100 WBC (Bld) 69.4 % 47-70 [facility] Work Phone: Potassium [Moles/Vol] 3.9 mmol/L 3.5-5.1 [facility] Work Phone: Protein [Mass/Vol] 7.1 g/dL 6.4-8.2 [facility] Work Phone: [phone] Sodium [Moles/Vol] 140 mmol/L 136-145 [facility] Work Phone: [phone] WBC (Bld) [#/Vol] 10.7 10*3/uL 4.4-11.[facility]: Blood erythrocytes count (nu mber/volume)on 11-27-2021 RBC (Bld) [#/Vol] 4.98 10*6/uL 4.6-6.2 [facility] Work Phone: Blood hemoglobin measurement (mass/volume)on 11-27-2021 Hemoglobin (Bld) [Mass/Vol] 15.1 g/dL 13.0-16.5 [facility] Work Phone: [phone] Blood lymphocytes/100 leukoc yteson 11-27-2021 Lymphocytes/100 WBC (Bld) 19.6 % 19-41 [facility] Work Phone: [phone] Blood monocytes/100 leukocyt eson 11-27-2021 Monocytes/100 WBC (Bld) 8.7 % 0-10 [facility] Work Phone: [phone] Blood platelet mean volumeon 11-27-2021 Platelet mean volume (Bld) [Entitic vol] 10.1 fL 6.2-12.0 [facility] Work Phone: [phone] Determination of erythrocyte mean corpuscular volume (MCV)on 11-27-2021 MCV (RBC) [Entitic vol] 88.8 fL 80-94 [facility] Work Phone: Hematocrit Auto (Bld) [Volum e fraction]on 11-27-2021 Hematocrit (Bld) [Volume fraction] 44.2 % 40-54 [facility] Work Phone: Laboratory - Chemistry and C hemistry - challengeon 11-27-2021 ALP [Catalytic activity/Vol] 75 U/L 45-117 [facility] Work Phone: [phone] ALT [Catalytic activity/Vol] 27 U/L 16-61 [facility] Work Phone: [phone] CO2 [Moles/Vol] 27.0 mmol/L 21.0-32.0 [facility] Work Phone: [phone] Globulin (S) [Mass/Vol] 4.0 g/dL 2.2-4.2 [facility] Work Phone: [phone] Urea nitrogen/Creatinine [Mass ratio] 11.7 mg/mg 10-20 [facility] Work Phone: [phone] Laboratory - Hematology and Cell countson 11-27-2021 Erythrocyte distribution width (RBC) [Entitic vol] 43.1 fL 35.1-43.9 [facility] Work Phone: [phone] Erythrocyte distribution width (RBC) [Ratio] 13.2 % 11.6-14.6 [facility] Work Phone: [phone] Immature granulocytes/100 WBC (Bld) 0.600 % 0.0-0.9 [facility] Work Phone: [phone] Comment on above: IG% - Immature Granu locytes (promyelocytes, myelocytes and metamyelocytes) > 1% indicates that a LEFT SHIFT is Present. MCH (RBC) [Entitic mass] 30.3 pg 27.0-32.0 [facility] Work Phone: [phone] Nucleated RBC/100 WBC (Bld) [Ratio] 0 % 0-5 [facility] Work Phone: [phone] MCHC Auto (RBC) [Mass/Vol]on 11-27-2021 MCHC (RBC) [Mass/Vol] 34.2 g/dL 32-36 [facility] Work Phone: No Panel Informationon 11-27 Estimated Creatinine Clearance Calc 91.27 ml/min [facility] Work Phone: [phone] Estimated GFR (MDRD) Amer 91 mL/min >60 [facility] Work Phone: [phone] Comment on above: GFR Calc Estimated GFR (MDRD) Non-Af Amer 76 mL/min >60 [facility] Work Phone: Comment on above: Non- GFR Calc Troponin I High Sensitivity 4 pg/mL 3.0-78.0 [facility] Work Phone: Comment on above: Please Note: New Bharati t Units and Gender Specific Reference Ranges. For more information see Policy Stat Procedure [place] High Sensitivity Troponin (TNIH) and attachments. D-Dimer Quantitative (PE/DVT) 1.78 FEU/ug/m 0.27-0.49 [facility] Work Phone: Comment on above: D-Dimer ELEVATED (>0 .49): Additional studies and clinicalassessments are indicated to conclude diagnosis of:Deep Vein Thrombosis (DVT) or Pulmonary Embolism (PE)CRITICAL VALUE VERIFIED. [facility]IM STEVEN[facility]11/27/21 1523 Red Davies.RESULTS READ BACK BY SAME. Platelets bldon 11-27-2021 Platelets (Bld) [#/Vol] 378 10*3/uL 150-450 [facility] Work Phone: Serum or plasma albumin jason urement (mass/volume)on 11-27-2021 Albumin [Mass/Vol] 3.1 g/dL 3.2-5.0 [facility] Work Phone: Serum or plasma albumin/glob ulin mass ratioon 11-27-2021 Albumin/Globulin [Mass ratio] 0.8 {ratio} 0.9-2.4 [facility] Work Phone: Serum or plasma calcium jason urement (mass/volume)on 11-27-2021 Calcium [Mass/Vol] 8.8 mg/dL 8.5-10.1 [facility] Work Phone: Serum or plasma creatinine m easurement (mass/volume)on 11-27-2021 Creatinine [Mass/Vol] 1.11 mg/dL 0.70-1.30 [facility] Work Phone: Comment on above: The validity of the calculated GFR & GFRAA in patients over 70 years has not been determined. Clinical correlation is essential. Serum or plasma urea nitroge n measurement (mass/volume)on 11-27-2021 Urea nitrogen [Mass/Vol] 13 mg/dL 7-18 [facility] Work Phone: Thin prep Papanicolaou smear with manual screeningon 11-27-2021 Thin prep Papanicolaou smear with manual screening 19 U/L 15-37 [facility] Work Phone: Thin prep Papanicolaou smear with manual screening 4 5-15 [facility] Work Phone: Absolute lymphocyte counton 11-26-2021 Lymphocytes Auto (Unsp spec) [#/Vol] 1.38 10*3/uL 0.83-4.51 [facility] Work Phone: Basophil percentageon 2021 Basophils/100 WBC (Bld) 0.4 % 0-1 [facility] Work Phone: Bilirubin [Mass/Vol] 0.40 mg/dL 0.20-1.00 [facility] Work Phone: Comment on above: For patients on eltr ombopag therapy, use of Dimension [place] TBIL is not recommended. Chloride [Moles/Vol] 108 mmol/L 98-107 [facility] Work Phone: Cholesterol [Mass/Vol] 193 mg/dL <200 [facility] Work Phone: Comment on above: <200 mg/dL Desirable 200-240 mg/dL Borderline >240 mg/dL High Risk Eosinophils/100 WBC (Bld) 1.1 % 0-5 [facility] Work Phone: Glucose [Mass/Vol] 91 mg/dL 74-106 [facility] Work Phone: Neutrophils (Bld) [#/Vol] 8.5 10*3/uL 2.0-7.7 [facility] Work Phone: Neutrophils/100 WBC (Bld) 74.7 % 47-70 [facility] Work Phone: Potassium [Moles/Vol] 3.8 mmol/L 3.5-5.1 [facility] Work Phone: [phone] Protein [Mass/Vol] 7.5 g/dL 6.4-8.2 [facility] Work Phone: [phone] Sodium [Moles/Vol] 139 mmol/L 136-145 [facility] Work Phone: [phone] Triglyceride [Mass/Vol] 180 mg/dL <199 [facility] Work Phone: [phone] Comment on above: The drugs N-Acetylcy steine and Metamizole may falsely depress this assay.Serum Triglycerides Reference Interval Normal <150 mg/dL Borderline high 150 - 199 mg/dL High 200 - 499 mg/dL Very High > or = 500 mg/dL WBC (Bld) [#/Vol] 11.4 10*3/uL 4.4-11.0 [facility] Work Phone: [phone] Blood erythrocytes count (nu mber/volume)on 11-26-2021 RBC (Bld) [#/Vol] 5.13 10*6/uL 4.6-6.2 [facility] Work Phone: [phone] Blood hemoglobin measurement (mass/volume)on 11-26-2021 Hemoglobin (Bld) [Mass/Vol] 15.4 g/dL 13.0-16.5 [facility] Work Phone: [phone] Blood lymphocytes/100 leukoc yteson 11-26-2021 Lymphocytes/100 WBC (Bld) 12.2 % 19-41 [facility] Work Phone: [phone] Blood monocytes/100 leukocyt eson 11-26-2021 Monocytes/100 WBC (Bld) 10.9 % 0-10 [facility] Work Phone: [phone] Blood platelet mean volumeon 11-26-2021 Platelet mean volume (Bld) [Entitic vol] 10.2 fL 6.2-12.0 [facility] Work Phone: [phone] Determination of erythrocyte mean corpuscular volume (MCV)on 11-26-2021 MCV (RBC) [Entitic vol] 89.3 fL 80-94 [facility] Work Phone: Erythrocyte sedimentation ra negrita 11-26-2021 ESR (Bld) [Velocity] 42 mm/h 0-[address] [facility] Work Phone: [phone] Hematocrit Auto (Bld) [Volum e fraction]on 11-26-2021 Hematocrit (Bld) [Volume fraction] 45.8 % 40-54 [facility] Work Phone: [phone] Laboratory - Chemistry and C hemistry - challengeon 11-26-2021 ALP [Catalytic activity/Vol] 78 U/L 45-117 [facility] Work Phone: [phone] ALT [Catalytic activity/Vol] 27 U/L 16-61 [facility] Work Phone: [phone] CO2 [Moles/Vol] 26.0 mmol/L 21.0-32.0 [facility] Work Phone: [phone] Globulin (S) [Mass/Vol] 4.2 g/dL 2.2-4.2 [facility] Work Phone: [phone] Urea nitrogen/Creatinine [Mass ratio] 17.6 mg/mg 10-20 [facility] Work Phone: [phone] Laboratory - Hematology and Cell countson 11-26-2021 Erythrocyte distribution width (RBC) [Entitic vol] 42.9 fL 35.1-43.9 [facility] Work Phone: [phone] Erythrocyte distribution width (RBC) [Ratio] 13.1 % 11.6-14.6 [facility] Work Phone: [phone] Immature granulocytes/100 WBC (Bld) 0.700 % 0.0-0.9 [facility] Work Phone: [phone] Comment on above: IG% - Immature Granu locytes (promyelocytes, myelocytes and metamyelocytes) > 1% indicates that a LEFT SHIFT is Present. MCH (RBC) [Entitic mass] 30.0 pg 27.0-32.0 [facility] Work Phone: [phone] Nucleated RBC/100 WBC (Bld) [Ratio] 0 % 0-5 [facility] Work Phone: [phone] MCHC Auto (RBC) [Mass/Vol]on 11-26-2021 MCHC (RBC) [Mass/Vol] 33.6 g/dL 32-36 [facility] No Panel Informationon 11-26 Estimated GFR (MDRD) Amer 94 mL/min >60 [facility] Work Phone: Comment on above: GFR Calc Estimated GFR (MDRD) Non-Af Amer 78 mL/min >60 [facility] Work Phone: [phone] Comment on above: Non- GFR Calc Thyroid Stimulating Hormone (TSH) 1.20 uIU/mL 0.358-3.74 [facility] Work Phone: [phone] Urine Microalbumin/Creatinine Ratio 4.8 mg/g CRE <30 [facility] Work Phone: Platelets bldon 11-26-2021 Platelets (Bld) [#/Vol] 410 10*3/uL 150-450 [facility] Work Phone: [phone] Serum or plasma albumin jason urement (mass/volume)on 11-26-2021 Albumin [Mass/Vol] 3.3 g/dL 3.2-5.0 [facility] Work Phone: [phone] Serum or plasma albumin/glob ulin mass ratioon 11-26-2021 Albumin/Globulin [Mass ratio] 0.8 {ratio} 0.9-2.4 [facility] Work Phone: [phone] Serum or plasma calcium jason urement (mass/volume)on 11-26-2021 Calcium [Mass/Vol] 8.8 mg/dL 8.5-10.1 [facility] Work Phone: [phone] Serum or plasma cholesterol in HDL measurement (mass/volume)on 11-26-2021 Cholesterol in HDL [Mass/Vol] 33 mg/dL >40 [facility] Work Phone: Comment on above: The drugs N-Acetylcy steine and Metamizole may falsely depress this assay. Reference Range HDL <40 mg/dL Low HDL Cholesterol HDL >or= 60 mg/dL High HDL Cholesterol Serum or plasma cholesterol in VLDL measurement (mass/volume)on 11-26-2021 Cholesterol in VLDL [Mass/Vol] 36 mg/dL 5-40 [facility] Work Phone: Serum or plasma creatinine m easurement (mass/volume)on 11-26-2021 Creatinine [Mass/Vol] 1.08 mg/dL 0.70-1.30 [facility] Work Phone: Comment on above: The validity of the calculated GFR & GFRAA in patients over 70 years has not been determined. Clinical correlation is essential. Serum or plasma low density lipoprotein (LDL) cholesterol measurement (mass/volume)on 11-26-2021 Cholesterol in LDL [Mass/Vol] 124 mg/dL 0-130 [facility] Work Phone: Serum or plasma urea nitroge n measurement (mass/volume)on 11-26-2021 Urea nitrogen [Mass/Vol] 19 mg/dL 7-18 [facility] Work Phone: Thin prep Papanicolaou smear with manual screeningon 11-26-2021 Thin prep Papanicolaou smear with manual screening 15 U/L 15-37 [facility] Work Phone: Thin prep Papanicolaou smear with manual screening 5 5-15 [facility] Work Phone: Thin prep Papanicolaou smear with manual screening 7.5 mg/L NO RANGE EST. [facility] Work Phone: Urine creatinine measurement (mass/volume)on 11-26-2021 Creatinine (U) [Mass/Vol] 157.00 mg/dL NO RANGE EST. [facility] Work Phone: .Auto Diffon 11-25-2019 Ammonia (P) [Mass/Vol] 0.80 10 3/mcL Normal 0.15-1.00 [facility] ([place]) Comment on above: Performed By: #### C BC, ADIFF, ANEU, CMP, GFR #### [place] [id number] [place], [place] [address] #### TROP #### [address] [address] Basophils (Bld) [#/Vol] 0.10 10 3/mcL Normal 0.00-0.19 [facility] ([place]) Comment on above: Performed By: #### C BC, ADIFF, ANEU, CMP, GFR #### [address] [address] #### TROP #### [address] [address] Basophils/100 WBC (Bld) 1.1 % Normal 0.0-2.5 [facility] ([place]) Comment on above: Performed By: #### C BC, ADIFF, ANEU, CMP, GFR #### [address] [address] #### TROP #### [address] [address] Eosinophils (Bld) [#/Vol] 0.40 10 3/mcL Normal 0.00-0. 40 [facility] ([place]) Comment on above: Performed By: #### C BC, ADIFF, ANEU, CMP, GFR #### [address] [address] #### TROP #### [address] [address] Eosinophils/100 WBC (Bld) 2.9 % Normal 0.0-7.0 [facility] ([place]) Comment on above: Performed By: #### C BC, ADIFF, ANEU, CMP, GFR #### [place] [address] #### TROP #### [address] [address] Lymphocytes (Bld) [#/Vol] 3.70 10 3/mcL Normal 0.77-3. 85 [facility] ([place]) Comment on above: Performed By: #### C BC, ADIFF, ANEU, CMP, GFR #### [address] [address] #### TROP #### [address] [address] Lymphocytes/100 WBC (Bld) 28.0 % Normal 10.0-50.0 [facility] ([place]) Comment on above: Performed By: #### C BC, ADIFF, ANEU, CMP, GFR #### [address] [address] #### TROP #### [address] [address] Monocytes/100 WBC (Bld) 6.0 % Normal 1.7-13.0 [facility] ([place]) Comment on above: Performed By: #### C BC, ADIFF, ANEU, CMP, GFR #### [address] [address] #### TROP #### [address] [address] Neutrophils/100 WBC (Bld) 62.0 % Normal 37.0-80.0 [facility] ([place]) Comment on above: Performed By: #### C BC, ADIFF, ANEU, CMP, GFR #### [address] [address] #### TROP #### [address] [address] .GFRon 11-25-2019 GFR Non- 66 ml/min/1.73sqm Normal [facility] ([place]) Comment on above: Result Comment: GFR Population mean for , Non- Americans Ages 20-29 = 116 mL/min/1.73 sq.m. Ages 30-39 = 107 mL/min/1.73 sq.m. Ages 40-49 = 99 mL/min/1.73 sq.m. Ages 50-59 = 93 mL/min/1.73 sq.m. Ages 60-69 = 85 mL/min/1.73 sq.m. Ages 70+ = 75 mL/min/1.73 sq.m. Chronic Kidney Disease: Less than 60 mL/min/1.73 square meters End Stage Renal Disease: Less than 15 mL/min/1.73 square meters Performed By: #### C BC, ADIFF, ANEU, CMP, GFR ####[address] [address]#### TROP ####[address] [address] GFR 80 ml/min/1.73sqm Normal [facility] ([place]) Comment on above: Result Comment: GFR Population mean for , Non- Americans Ages 20-29 = 116 mL/min/1.73 sq.m. Ages 30-39 = 107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 for Visit Encounter for examin ation required by Department of Transportation (DOT) Additional Source Comments (unrecognized sect ion and content) No Status Records FoundNo Status Records Found INFORMATION SOURCE (unrecogn ized section and content) DATE CREATED AUTHOR 01/01/2020 [facility] ([place]) DATE CREATED AUTHOR AUTHOR'S ORGANIZ ATION 09/04/2023 [facility] Goals (unrecognized section and content) Goals may be documented in a n alternate sectionGoals may be documented in an alternate sectionGoals may be documented in an alternate sectionGoals may be documented in an alternate sectionGoals may be documented in an alternate sectionGoals may be documented in an alternate section Care Teams (unrecognized sec tion and content) Team Status: Active Member Role Status Dates Dr. Manny Barber MD Family Provider Active Dr. Manny Barber MD Primary Care Provider Active Team Status: Inactive Member Role Status Dates Dr. Manny Barber MD Primary Care Provider, Referring P ana luisa Active Demario Hinojosa PA, PA Attending Provider Active Team Status: Inactive Member Role Status Dates Dr. Manny Barber MD Primary Care Provide r, Attending Provider, Referring Provider Active FOR RECORDS PERTAINING TO PATIENTS WHO ARE [...] BE BASED ON THE PRIMARY CLINICAL RECORDS. [facility]. provides no warranty or guarantee of the accuracy or completeness of information in this document.
[2024-10-09 10:07] LABS: Absolute Lymphocyte Count 2.11 X10^3/uL (0.83-4.51); Absolute Neutrophil Count 5.6 X10^3/uL (2.0-7.7); Basophil# 0.05 X10^3/uL; Basophil% 0.6 % (0-1); Eosinophil# 0.31 X10^3/uL; Eosinophils% 3.6 % (0-5); Hematocrit 46.7 % (40-54); Hemoglobin 15.7 g/dL (13.0-16.5); Lymphocyte # 2.11 X10^3/ul (0.83-4.51); Lymphocyte % 24.2 % (19-41); Mean Corp Hgb Conc 33.6 g/dL (32-36); Mean Corpuscular Hgb 29.7 pg (27.0-32.0); Mean Corpuscular Volume 88.3 fL (80-94); Mean Platelet Vol. 10.9 fl (6.2-12.0); Monocyte# 0.64 X10^3/uL; Monocyte% 7.3 % (0-10); NRBC Flagged by Analyzer 0 % (0-5); Neutrophil # 5.57 X10^3/uL (2.7-7.7); Neutrophil % 63.8 % (47-70); Platelet Count 244 K/mm3 (150-450); RBC Distribution Width CV 13.8 % (11.6-14.6); RBC Distribution Width SD 44.3 fl (35.1-43.9); Red Blood Count 5.29 M/mm3 (4.6-6.2); White Blood Count 8.7 K/mm3 (4.4-11.0)
[2024-10-09 14:49] LABS: ALB/GLOB Ratio 1.5 RATIO (0.9-2.4); AST(SGOT) 19 U/L (<=37); Alanine Aminotransfer ALT/SGPT 21 U/L (<=46); Albumin, Serum 4.3 g/dL (3.5-5.0); Alkaline Phosphatase 62 U/L (40-129); Anion Gap 11 (5-15); BUN 17 mg/dL (4-19); BUN/Creat Ratio 17.6 RATIO (10-20); Calcium,Total 9.2 mg/dL (7.6-11.0); Carbon Dioxide 23.3 mmol/L (21.0-32.0); Chloride 107 mmol/L (98-108); Cholesterol 219 mg/dL (<=200); Creatinine, Serum 0.99 mg/dL (0.70-1.20); EST Glomerular Filtration Rate 94 (>60); Globulin 2.8 g/dL (2.2-4.2); Glucose 93 mg/dL (70-99); High Density Lipoprotein 38 mg/dL; Low Density Lipoprotein Calc. 156 mg/dL; PSA,Total - Annual Screen 1.13 ng/mL (0.02-4.00); Potassium 4.2 mmol/L (3.3-5.1); Protein, Total 7.1 g/dL (5.9-8.4); Sodium Level 141 mmol/L (133-145); Triglycerides 126 mg/dL; Very Low Density Lipoprotein 25 mg/dL (5-40); cholesterol:hdl ratio screen 5.84
== END | disposition home or self-care (01) ==
LOC: MFPLAB 08:28
PROVIDERS: PCP Family Medicine; Referring Provider Family Medicine; Visit Provider Family Medicine
DX: J45.909 Unspecified asthma, uncomplicated (principal); I10 Essential (primary) hypertension; Z12.5 Encounter for screening for malignant neoplasm of prostate
CPT/HCPCS: 36415; 80053; 80061; 84153; 85025; G0103

== ENCOUNTER → 2024-10-11 | Outpatient (CLI) | payer OTHER, SELFPAY ==
[2024-10-11 15:01] LABS: Microalbumin,Random Urine < 12.0 mg/L (NO RANGE EST.); Microalbumin:Creatinine Ratio UNABLE TO CALCULATE mg/g CRE
--- OUTSIDE RECORDS SUMMARY | 2024-10-11 16:09 | XMS RPT_ITS | CCD ---
Author Organization [facility] Inform ion Partnership [facility] Care Team Providers Care Drug Enforcement Agent Name Role Phone Dr. Manny Barber Primary Care Provider [phone] Dr. Manny Barber Referring Provider Micaela ARGUETA, ELLIE Tolliver Attending Provider Manny Barber Referring Unavailable Manny Barber Attending Unavailable Manny Barber Primary Care Unavailable Manny Barber Referring Unavailable Manny Barber Attending Unavailable Manny Barber Primary Care Unavailable Medications [...] Active TABLET November 27, 2021 12:00am Problems Problem Classification Problem Date Documented Date Episodic/Chronic Administrative/social admission (9 sources) Administrative reason for encounter; Translations: [Encounter for other administrative examinations] 05-12-2021 Episodic Essential hypertension (1 source) Essential (primary) hypertension; Translations: [Essential (primary) hypertension] Onset: 10-11-2024 Chronic Other lower respiratory disease (6 sources) Dyspnea; Translations: [Dyspnea, unspecified] 12-05-2021 Episodic Viral infection (6 sources) Disease caused by 2019-nCoV; Translations: [COVID-19] 11-27-2021 Episodic Results Test Name Value Interpretation Reference Range Facility CBC W/Diff, Automatedon 09-23 Absolute Lymph 2.11 X10 3/uL Normal 0.83-4.51 [facility] Comment on above: Performed By: #### L 100.0100, L500.4050, L500.4100, L501.9910 #### [facility] [address] [place], [address] Absolute Neut 5.6 X10 3/uL Normal 2.0-7.7 [facility] Comment on above: Performed By: #### L 100.0100, L500.4050, L500.4100, L501.9910 #### [facility] [address] [place], [address] Basophils/100 WBC (Bld) 0.6 % Normal 0-1 [facility] Comment on above: Performed By: #### L 100.0100, L500.4050, L500.4100, L501.9910 #### [facility] [address] [place], [address] Eosinophils/100 WBC (Bld) 3.6 % Normal 0-5 [facility] Comment on above: Performed By: #### L 100.0100, L500.4050, L500.4100, L501.9910 #### [facility] [address] [place], [address] Erythrocyte distribution width (RBC) [Ratio] 13.8 % Normal 11.6-14.6 [facility] Comment on above: Performed By: #### L 100.0100, L500.4050, L500.4100, L501.9910 #### [facility] [address] [place], [address] Hematocrit (Bld) [Volume fraction] 46.7 % Normal 40-54 [facility] Comment on above: Performed By: #### L 100.0100, L500.4050, L500.4100, L501.9910 #### [facility] [address] [place], [address] Hemoglobin (Bld) [Mass/Vol] 15.7 g/dL Normal 13.0-16.5 [facility] Comment on above: Performed By: #### L 100.0100, L500.4050, L500.4100, L501.9910 #### [facility] [address] [place], [address] IG% 0.500 Normal 0.0-0.9 [facility] Comment on above: Result Comment: IG% - Immature Granulocytes (promyelocytes, myelocytes and metamyelocytes) > 1% indicates that a LEFT SHIFT is Present. Performed By: #### L 100.0100, L500.4050, L500.4100, L501.9910 #### [facility] [address] [place], [address] Lymphocytes/100 WBC (Bld) 24.2 % Normal 19-41 [facility] Comment on above: Performed By: #### L 100.0100, L500.4050, L500.4100, L501.9910 #### [facility] [address] [place], [address] MCH (RBC) [Entitic mass] 29.7 pg Normal 27.0-32.0 [facility] Comment on above: Performed By: #### L 100.0100, L500.4050, L500.4100, L501.9910 #### [facility] [address] [place], [address] MCHC (RBC) [Mass/Vol] 33.6 g/dL Normal 32-36 [facility] Comment on above: Performed By: #### L 100.0100, L500.4050, L500.4100, L501.9910 #### [facility] [address] [place], [address] MCV (RBC) [Entitic vol] 88.3 fL Normal 80-94 [facility] Comment on above: Performed By: #### L 100.0100, L500.4050, L500.4100, L501.9910 #### [facility] [address] [place], [address] Monocytes/100 WBC (Bld) 7.3 % Normal 0-10 [facility] Comment on above: Performed By: #### L 100.0100, L500.4050, L500.4100, L501.9910 #### [facility] [address] [place], [address] Neutrophils/100 WBC (Bld) 63.8 % Normal 47-70 [facility] Comment on above: Performed By: #### L 100.0100, L500.4050, L500.4100, L501.9910 #### [facility] [address] [place], [address] Nucleated RBC (Bld) [#/Vol] 0 10*3/uL Normal 0-5 [facility] Comment on above: Performed By: #### L 100.0100, L500.4050, L500.4100, L501.9910 #### [facility] [address] [place], [address] Platelet mean volume (Bld) [Entitic vol] 10.9 fL Normal 6.2-12.0 [facility] Comment on above: Performed By: #### L 100.0100, L500.4050, L500.4100, L501.9910 #### [facility] [address] [place], [address] Platelets (Bld) [#/Vol] 244 10*3/uL Normal 150-450 [facility] Comment on above: Performed By: #### L 100.0100, L500.4050, L500.4100, L501.9910 #### [facility] [address] [place], [address] RBC (Bld) [#/Vol] 5.29 10*6/uL Normal 4.6-6.2 [facility] Comment on above: Performed By: #### L 100.0100, L500.4050, L500.4100, L501.9910 #### [facility] [address] [place], [address] RDW SD 44.3 fl High 35.1-43.9 [facility] Comment on above: Performed By: #### L 100.0100, L500.4050, L500.4100, L501.9910 #### [facility] [address] [place], [address] WBC (Bld) [#/Vol] 8.7 10*3/uL Normal 4.4-11.0 [facility] Comment on above: Performed By: #### L 100.0100, L500.4050, L500.4100, L501.9910 #### [facility] [address] [place], [address] Comprehensive Metabolic Prof txon 10-09-2024 Albumin [Mass/Vol] 4.3 g/dL Normal 3.5-5.0 [facility] Comment on above: Performed By: #### L 100.0100, L500.4050, L500.4100, L501.9910 #### [facility] [address] [place], [address] Albumin/Globulin [Mass ratio] 1.5 {ratio} Normal 0.9-2.4 [facility] Comment on above: Performed By: #### L 100.0100, L500.4050, L500.4100, L501.9910 #### [facility] [address] [place], [address] ALK PHOS 62 U/L Normal 40-129 [facility] Comment on above: Performed By: #### L 100.0100, L500.4050, L500.4100, L501.9910 #### [facility] [address] [place], [address] ALT [Catalytic activity/Vol] 21 U/L Normal <=46 [facility] Comment on above: Performed By: #### L 100.0100, L500.4050, L500.4100, L501.9910 #### [facility] [address] [place], [address] AST [Catalytic activity/Vol] 19 U/L Normal <=37 [facility] Comment on above: Performed By: #### L 100.0100, L500.4050, L500.4100, L501.9910 #### [facility] [address] [place], [address] Bilirubin [Mass/Vol] 0.40 mg/dL Normal 0.00-1.30 [facility] Comment on above: Performed By: #### L 100.0100, L500.4050, L500.4100, L501.9910 #### [facility] [address] [place], [address] BUN/CRE 17.6 RATIO Normal 10-20 [facility] Comment on above: Performed By: #### L 100.0100, L500.4050, L500.4100, L501.9910 #### [facility] [address] [place], [address] Calcium [Mass/Vol] 9.2 mg/dL Normal 7.6-11.0 [facility] Comment on above: Performed By: #### L 100.0100, L500.4050, L500.4100, L501.9910 #### [facility] [address] [place], [address] Chloride [Moles/Vol] 107 mmol/L Normal 98-108 [facility] Comment on above: Performed By: #### L 100.0100, L500.4050, L500.4100, L501.9910 #### [facility] [address] [place], [address] CO2 [Moles/Vol] 23.3 mmol/L Normal 21.0-32.0 [facility] Comment on above: Performed By: #### L 100.0100, L500.4050, L500.4100, L501.9910 #### [facility] [address] [place], [address] Creatinine [Mass/Vol] 0.99 mg/dL Normal 0.70-1.20 [facility] Comment on above: Performed By: #### L 100.0100, L500.4050, L500.4100, L501.9910 #### [facility] [address] [place], [address] GAP 11 Normal 5-15 [facility] Comment on above: Performed By: #### L 100.0100, L500.4050, L500.4100, L501.9910 #### [facility] [address] [place], [address] GFR/1.73 sq M.predicted among non-blacks MDRD (S/P/Bld) [Vol rate/Area] 94 mL/min/{1.73_m2} Normal >60 [facility] Comment on above: Result Comment: mL/m in/1.73m2 CKD-EPI Creatinine Equation (2020) Performed By: #### L 100.0100, L500.4050, L500.4100, L501.9910 #### [facility] [address] [place], [address] Globulin (S) [Mass/Vol] 2.8 g/dL Normal 2.2-4.2 [facility] Comment on above: Performed By: #### L 100.0100, L500.4050, L500.4100, L501.9910 #### [facility] [address] [place], [address] Glucose [Mass/Vol] 93 mg/dL Normal 70-99 [facility] Comment on above: Performed By: #### L 100.0100, L500.4050, L500.4100, L501.9910 #### [facility] [address] [place], [address] Potassium [Moles/Vol] 4.2 mmol/L Normal 3.3-5.1 [facility] Comment on above: Performed By: #### L 100.0100, L500.4050, L500.4100, L501.9910 #### [facility] [address] [place], [address] Sodium [Moles/Vol] 141 mmol/L Normal 133-145 [facility] Comment on above: Performed By: #### L 100.0100, L500.4050, L500.4100, L501.9910 #### [facility] [address] [place], [address] T PROT 7.1 g/dL Normal 5.9-8.4 [facility] Comment on above: Performed By: #### L 100.0100, L500.4050, L500.4100, L501.9910 #### [facility] [address] [place], [address] Urea nitrogen [Mass/Vol] 17 mg/dL Normal 4-19 [facility] Comment on above: Performed By: #### L 100.0100, L500.4050, L500.4100, L501.9910 #### [facility] [address] [place], [address] Lipid Profileon 10-09-2024 CHOL:HDL 5.84 Normal [facility] Comment on above: Performed By: #### L 100.0100, L500.4050, L500.4100, L501.9910 #### [facility] [address] [place], [address] Cholesterol [Mass/Vol] 219 mg/dL High <=200 [facility] Comment on above: Result Comment: Chol esterol level, Desirable <200 mg/dL Borderline high cholesterol 200-239 mg/dL High cholesterol >=240 mg/dL Recommendations of the NCEP Adult Treatment Panel for the following risk-cutoff thresholds for the [place] population. Performed By: #### L 100.0100, L500.4050, L500.4100, L501.9910 #### [facility] [address] [place], [address] Cholesterol in HDL [Mass/Vol] 38 mg/dL Low [facility] Comment on above: Result Comment: Eleanor onal Cholesterol Education Program (NCEP) guidelines: <40 mg/dL: Low HDL-cholesterol (major risk factor for CHD) >= 60 mg/dL: High HDL-cholesterol (negative risk factor for CHD) HDL-cholesterol is affected by a number of factors, e.g. smoking, exercise, hormones, sex and age. Performed By: #### L 100.0100, L500.4050, L500.4100, L501.9910 #### [facility] [address] [place], [address] Cholesterol in LDL [Mass/Vol] 156 mg/dL Normal [facility] Comment on above: Result Comment: Bord bjvast=419-787 mg/dL Higher Sitb=038 mg/dL or greater Performed By: #### L 100.0100, L500.4050, L500.4100, L501.9910 #### [facility] [address] [place], [address] Cholesterol in VLDL [Mass/Vol] 25 mg/dL Normal 5-40 [facility] Comment on above: Performed By: #### L 100.0100, L500.4050, L500.4100, L501.9910 #### [facility] [address] [place], [address] Triglyceride [Mass/Vol] 126 mg/dL Normal [facility] Comment on above: Result Comment: The drugs N-Acetylcysteine and Metamizole may falsely depress this assay. Normal range: <150 mg/dL Borderline High: 150-199 mg/dL High: 200-499 mg/dL Very High: >500 mg/dL Performed By: #### L 100.0100, L500.4050, L500.4100, L501.9910 #### [facility] [address] [place], [address] PSA,Total - Annual Screenon 10-09-2024 PSA,TOT SCREEN 1.13 ng/mL Normal 0.02-4.00 [facility] Comment on above: Result Comment: This test was performed using the [employer] tPSA method. Measured values of a patient??sample can vary depending on the testing procedure used. PSA values determined on patient samples by different testing procedures cannot be used interchangeably. If there is a change in PSA assays while monitoring therapy, sequential testing should be performed to confirm baseline values. Performed By: #### L 100.0100, L500.4050, L500.4100, L501.9910 #### [facility] [address] [place], [address] Albumin Elph [Mass/Vol]Order ed By: Manny Barber on 06-10-2023 Albumin [Mass/Vol] 3.6 g/dL 2.9-4.4 [facility] Basophil percentageOrdered B y: Manny Barber on 06-10-2023 Bilirubin [Mass/Vol] 0.40 mg/dL 0.20-1.00 [facility] Comment on above: For patients on eltr ombopag therapy, use of Dimension [place] TBIL is not recommended. Chloride [Moles/Vol] 111 mmol/L 98-107 [facility] Glucose [Mass/Vol] 96 mg/dL 74-106 [facility] Hemoglobin (Bld) [Mass/Vol] 16.2 g/dL 13.0-16.5 [facility] Potassium [Moles/Vol] 4.4 mmol/L 3.5-5.1 [facility] Protein [Mass/Vol] 7.5 g/dL 6.4-8.2 [facility] Sodium [Moles/Vol] 142 mmol/L 136-145 [facility] WBC (Bld) [#/Vol] 9.3 10*3/uL 4.4-11.0 [facility] Determination of erythrocyte mean corpuscular volume (MCV)Ordered By: Manny Barber on 06-10-2023 MCV (RBC) [Entitic vol] 90.6 fL 80-94 [facility] Erythrocyte distribution wid th ratioOrdered By: Manny Barber on 06-10-2023 Erythrocyte distribution width (RBC) [Ratio] 13.8 % 11.6-14.6 [facility] Erythrocyte distribution wid th standard deviationOrdered By: Manny Barber on 06-10-2023 Erythrocyte distribution width (RBC) [Entitic vol] 46.0 fL 35.1-43.9 [facility] Hematocrit Auto (Bld) [Volum e fraction]Ordered By: Manny Barber on 06-10-2023 Hematocrit (Bld) [Volume fraction] 50.0 % 40-54 [facility] - Chemistry and C hemistry - challengeOrdered By: Manny Barber on 06-10-2023 Albumin/Globulin [Mass ratio] 1.0 {ratio} 0.9-2.4 [facility] ALP [Catalytic activity/Vol] 65 U/L 45-117 [facility] ALT [Catalytic activity/Vol] 28 U/L 16-61 [facility] CO2 [Moles/Vol] 26.0 mmol/L 21.0-32.0 [facility] Globulin (S) [Mass/Vol] 3.8 g/dL 2.2-4.2 [facility] Urea nitrogen/Creatinine [Mass ratio] 18.1 mg/mg 10-20 [facility] - Hematology and Cell countsOrdered By: Manny Barber on 06-10-2023 MCH (RBC) [Entitic mass] 29.3 pg 27.0-32.0 [facility] MCHC (RBC) [Mass/Vol] 32.4 g/dL 32-36 [facility] Platelet mean volume (Bld) [Entitic vol] 10.3 fL 6.2-12.0 [facility] Platelets (Bld) [#/Vol] 244 10*3/uL 150-450 [facility] No Panel InformationOrdered By: Manny Barber on 06-10-2023 Addendum Document Comment . [facility] Comment on above: The SPE pattern appe ars unremarkable. Evidence ofmonoclonal protein is not apparent.Performed at: [facility] [id number] Director: Travis Hinojosa PhD, Phone: [phone] Rarus-9-Ipvqwrrvp 0.3 g/dL 0.0-0.4 [facility] Jjsdx-1-Cnseixpom 0.9 g/dL 0.4-1.0 [facility] Estimated GFR (MDRD) Amer 97 mL/min >60 [facility] Comment on above: GFR Calc Estimated GFR (MDRD) Non-Af Amer 80 mL/min >60 [facility] Comment on above: Non- GFR Calc Gamma Globulins 1.0 g/dL 0.4-1.8 [facility] Prostate Specific Antigen Screen 1.10 ng/mL 0.00-4.00 [facility] Comment on above: This test was perfor med using the TPSA assay method for the[employer]) chemistry system. Values obtained with differentassay methods cannot be used interchangably.When changing PSA assays in the course of monitoring apatient, additional sequential testing should be carriedout to confirm baseline values. Urine Microalbumin/Creatinine Ratio 4.9 mg/g CRE <30 [facility] Protein Fractions Elph [Inte rp]Ordered By: Manny Barber on 06-10-2023 Protein Fractions [Interp] Comment . [facility] Comment on above: Protein electrophore sis scan will follow via computer,mail, or meat butcher delivery. RBC Auto (Bld) [#/Vol]Ordere d By: Manny Barber on 06-10-2023 RBC (Bld) [#/Vol] 5.52 10*6/uL 4.6-6.2 [facility] Serum albumin to globulin ra yoli by protein electrophoresisOrdered By: Manny Barber on 06-10-2023 Albumin/Globulin Elph [Mass ratio] 1.1 0.7-1.7 [facility] Serum globulin measurement ( mass/volume)Ordered By: Manny Barber on 06-10-2023 Globulin (S) [Mass/Vol] 3.3 g/dL 2.2-3.9 [facility] Serum or plasma beta globuli n measurement by electrophoresis (mass/volume)Ordered By: Manny Barber on 06-10-2023 Beta globulin Elph [Mass/Vol] 1.0 g/dL 0.7-1.3 [facility] Serum or plasma calcium jason urement (mass/volume)Ordered By: Manny Barber on 06-10-2023 Calcium [Mass/Vol] 9.4 mg/dL 8.5-10.1 [facility] Serum or plasma creatinine m easurement (mass/volume)Ordered By: Manny Barber on 06-10-2023 Creatinine [Mass/Vol] 1.05 mg/dL 0.70-1.30 [facility] Comment on above: The validity of the calculated GFR & GFRAA in patients over 70 years has not been determined. Clinical correlation is essential. Serum or plasma protein mono clonal measurement by electrophoresis (mass/volume)Ordered By: Manny Barber on 06-10-2023 Protein.monoclonal Elph [Mass/Vol] Not Observed g/dL Not Observed [facility] Serum or plasma urea nitroge n measurement (mass/volume)Ordered By: Manny Barber on 06-10-2023 Urea nitrogen [Mass/Vol] 19 mg/dL 7-18 [facility] Thin prep Papanicolaou smear with manual screeningOrdered By: Manny Barber on 06-10-2023 Thin prep Papanicolaou smear with manual screening 3.7 g/dL 3.2-5.0 [facility] Thin prep Papanicolaou smear with manual screening 24 U/L 15-37 [facility] Thin prep Papanicolaou smear with manual screening 5 5-15 [facility] Thin prep Papanicolaou smear with manual screening 5.8 mg/L NO RANGE EST. [facility] Total protein bloodOrdered B y: Manny Barber on 06-10-2023 Protein [Mass/Vol] 6.9 g/dL 6.0-8.5 [facility] Urine creatinine measurement (mass/volume)Ordered By: Manny Barber on 06-10-2023 Creatinine (U) [Mass/Vol] 118.00 mg/dL NO RANGE EST. [facility] Absolute lymphocyte counton 11-27-2021 Lymphocytes Auto (Unsp spec) [#/Vol] 2.10 10*3/uL 0.83-4.51 [facility] Work Phone: Basophil percentageon 2021 Basophils/100 WBC (Bld) 0.6 % 0-1 [facility] Work Phone: Bilirubin [Mass/Vol] 0.50 mg/dL 0.20-1.00 [facility] Work Phone: Comment on above: For patients on eltr ombopag therapy, use of Dimension [place] TBIL is not recommended. Chloride [Moles/Vol] 109 mmol/L 98-107 [facility] Work Phone: Eosinophils/100 WBC (Bld) 1.1 % 0-5 [facility] Work Phone: Glucose [Mass/Vol] 108 mg/dL 74-106 [facility] Work Phone: [phone] Comment on above: Fasting Glucose resu lt from 100 to 125 mg/dL suggests IMPAIRED HOMEOSTASIS per A.D.A. criteria. Neutrophils (Bld) [#/Vol] 7.5 10*3/uL 2.0-7.7 [facility] Work Phone: [phone] Neutrophils/100 WBC (Bld) 69.4 % 47-70 [facility] Work Phone: [phone] Potassium [Moles/Vol] 3.9 mmol/L 3.5-5.1 [facility] Work Phone: [phone] Protein [Mass/Vol] 7.1 g/dL 6.4-8.2 [facility] Work Phone: [phone] Sodium [Moles/Vol] 140 mmol/L 136-145 [facility] Work Phone: [phone] WBC (Bld) [#/Vol] 10.7 10*3/uL 4.4-11.0 [facility] Work Phone: [phone] Blood erythrocytes count (nu mber/volume)on 11-27-2021 RBC (Bld) [#/Vol] 4.98 10*6/uL 4.6-6.2 [facility] Work Phone: [phone] Blood hemoglobin measurement (mass/volume)on 11-27-2021 Hemoglobin (Bld) [Mass/Vol] 15.1 g/dL 13.0-16.5 [facility] Work Phone: [phone] Blood lymphocytes/100 leukoc yteson 11-27-2021 Lymphocytes/100 WBC (Bld) 19.6 % 19-41 [facility] Work Phone: [phone] Blood monocytes/100 leukocyt eson 11-27-2021 Monocytes/100 WBC (Bld) 8.7 % 0-10 [facility] Work Phone: [phone] Blood platelet mean volumeon 11-27-2021 Platelet mean volume (Bld) [Entitic vol] 10.1 fL 6.2-12.0 [facility] Work Phone: [phone] Determination of erythrocyte mean corpuscular volume (MCV)on 11-27-2021 MCV (RBC) [Entitic vol] 88.8 fL 80-94 [facility] Work Phone: [phone] Hematocrit Auto (Bld) [Volum e fraction]on 11-27-2021 Hematocrit (Bld) [Volume fraction] 44.2 % 40-54 [facility] Work Phone: [phone] Laboratory - Chemistry and C hemistry - challengeon 11-27-2021 ALP [Catalytic activity/Vol] 75 U/L 45-117 [facility] Work Phone: [phone] ALT [Catalytic activity/Vol] 27 U/L 16-61 [facility] Work Phone: [phone] CO2 [Moles/Vol] 27.0 mmol/L 21.0-32.0 [facility] Work Phone: [phone] Globulin (S) [Mass/Vol] 4.0 g/dL 2.2-4.2 [facility] Work Phone: [phone] Urea nitrogen/Creatinine [Mass ratio] 11.7 mg/mg 10-20 [facility] Work Phone: [phone] Laboratory - Hematology and Cell countson 11-27-2021 Erythrocyte distribution width (RBC) [Entitic vol] 43.1 fL 35.1-43.9 [facility] Work Phone: [phone] Erythrocyte distribution width (RBC) [Ratio] 13.2 % 11.6-14.6 [facility] Work Phone: [phone] Immature granulocytes/100 WBC (Bld) 0.600 % 0.0-0.9 [facility] Work Phone: [phone] Comment on above: IG% - Immature Granu locytes (promyelocytes, myelocytes and metamyelocytes) > 1% indicates that a LEFT SHIFT is Present. MCH (RBC) [Entitic mass] 30.3 pg 27.0-32.0 [facility] Work Phone: [phone] Nucleated RBC/100 WBC (Bld) [Ratio] 0 % 0-5 [facility] Work Phone: [phone] MCHC Auto (RBC) [Mass/Vol]on 11-27-2021 MCHC (RBC) [Mass/Vol] 34.2 g/dL 32-36 [facility] Work Phone: No Panel Informationon 11-27 Estimated Creatinine Clearance Calc 91.27 ml/min [facility] Work Phone: Estimated GFR (MDRD) Amer 91 mL/min >60 [facility] Work Phone: Comment on above: GFR Calc Estimated GFR (MDRD) Non-Af Amer 76 mL/min >60 [facility] Work Phone: Comment on above: Non- GFR Calc Troponin I High Sensitivity 4 pg/mL 3.0-78.0 [facility] Work Phone: Comment on above: Please Note: New Bharati t Units and Gender Specific Reference Ranges. For more information see Policy Stat Procedure [place] High Sensitivity Troponin (TNIH) and attachments. D-Dimer Quantitative (PE/DVT) 1.78 FEU/ug/m 0.27-0.49 [facility] Work Phone: Comment on above: D-Dimer ELEVATED (>0 .49): Additional studies and clinicalassessments are indicated to conclude diagnosis of:Deep Vein Thrombosis (DVT) or Pulmonary Embolism (PE)CRITICAL VALUE VERIFIED. [facility] EPHRAIM STEVENSON [facility]/27/21 1523 Red Davies.RESULTS READ BACK BY SAME. Platelets bldon 11-27-2021 Platelets (Bld) [#/Vol] 378 10*3/uL 150-450 [facility] Work Phone: [phone] Serum or plasma albumin jason urement (mass/volume)on 11-27-2021 Albumin [Mass/Vol] 3.1 g/dL 3.2-5.0 [facility] Work Phone: [phone] Serum or plasma albumin/glob ulin mass ratioon 11-27-2021 Albumin/Globulin [Mass ratio] 0.8 {ratio} 0.9-2.4 [facility] Work Phone: [phone] Serum or plasma calcium jason urement (mass/volume)on 11-27-2021 Calcium [Mass/Vol] 8.8 mg/dL 8.5-10.1 [facility] Work Phone: Serum or plasma creatinine m easurement (mass/volume)on 11-27-2021 Creatinine [Mass/Vol] 1.11 mg/dL 0.70-1.30 [facility] Work Phone: Comment on above: The validity of the calculated GFR & GFRAA in patients over 70 years has not been determined. Clinical correlation is essential. Serum or plasma urea nitroge n measurement (mass/volume)on 11-27-2021 Urea nitrogen [Mass/Vol] 13 mg/dL 7-18 [facility] Work Phone: [phone] Thin prep Papanicolaou smear with manual screeningon 11-27-2021 Thin prep Papanicolaou smear with manual screening 19 U/L 15-37 [facility] Work Phone: [phone] Thin prep Papanicolaou smear with manual screening 4 5-15 [facility] Work Phone: [phone] Absolute lymphocyte counton 11-26-2021 Lymphocytes Auto (Unsp spec) [#/Vol] 1.38 10*3/uL 0.83-4.51 [facility] Work Phone: [phone] Basophil percentageon 2021 Basophils/100 WBC (Bld) 0.4 % 0-1 [facility] Work Phone: [phone] Bilirubin [Mass/Vol] 0.40 mg/dL 0.20-1.00 [facility] Work Phone: [phone] Comment on above: For patients on eltr ombopag therapy, use of Dimension [place] TBIL is not recommended. Chloride [Moles/Vol] 108 mmol/L 98-107 [facility] Work Phone: [phone] Cholesterol [Mass/Vol] 193 mg/dL <200 [facility] Work Phone: [phone] Comment on above: <200 mg/dL Desirable 200-240 mg/dL Borderline >240 mg/dL High Risk Eosinophils/100 WBC (Bld) 1.1 % 0-5 [facility] Work Phone: Glucose [Mass/Vol] 91 mg/dL 74-106 [facility] Work Phone: Neutrophils (Bld) [#/Vol] 8.5 10*3/uL 2.0-7.7 [facility] Work Phone: Neutrophils/100 WBC (Bld) 74.7 % 47-70 [facility] Work Phone: Potassium [Moles/Vol] 3.8 mmol/L 3.5-5.1 [facility] Work Phone: Protein [Mass/Vol] 7.5 g/dL 6.4-8.2 [facility] Work Phone: Sodium [Moles/Vol] 139 mmol/L 136-145 [facility] Work Phone: [phone] Triglyceride [Mass/Vol] 180 mg/dL <199 [facility] Work Phone: Comment on above: The drugs N-Acetylcy steine and Metamizole may falsely depress this assay.Serum Triglycerides Reference Interval Normal <150 mg/dL Borderline high 150 - 199 mg/dL High 200 - 499 mg/dL Very High > or = 500 mg/dL WBC (Bld) [#/Vol] 11.4 10*3/uL 4.4-11.0 [facility] Work Phone: Blood erythrocytes count (nu mber/volume)on 11-26-2021 RBC (Bld) [#/Vol] 5.13 10*6/uL 4.6-6.2 [facility] Work Phone: Blood hemoglobin measurement (mass/volume)on 11-26-2021 Hemoglobin (Bld) [Mass/Vol] 15.4 g/dL 13.0-16.5 [facility] Work Phone: Blood lymphocytes/100 leukoc yteson 11-26-2021 Lymphocytes/100 WBC (Bld) 12.2 % 19-41 [facility] Work Phone: Blood monocytes/100 leukocyt eson 11-26-2021 Monocytes/100 WBC (Bld) 10.9 % 0-10 [facility] Work Phone: Blood platelet mean volumeon 11-26-2021 Platelet mean volume (Bld) [Entitic vol] 10.2 fL 6.2-12.0 [facility] Work Phone: Determination of erythrocyte mean corpuscular volume (MCV)on 11-26-2021 MCV (RBC) [Entitic vol] 89.3 fL 80-94 [facility] Work Phone: Erythrocyte sedimentation ra negrita 11-26-2021 ESR (Bld) [Velocity] 42 mm/h 0-20 [facility]: Hematocrit Auto (Bld) [Volum e fraction]on 11-26-2021 Hematocrit (Bld) [Volume fraction] 45.8 % 40-54 [facility] Work Phone: Laboratory - Chemistry and C hemistry - challengeon 11-26-2021 ALP [Catalytic activity/Vol] 78 U/L 45-117 [facility] Work Phone: ALT [Catalytic activity/Vol] 27 U/L 16-61 [facility] Work Phone: CO2 [Moles/Vol] 26.0 mmol/L 21.0-32.0 [facility] Work Phone: Globulin (S) [Mass/Vol] 4.2 g/dL 2.2-4.2 [facility] Work Phone: Urea nitrogen/Creatinine [Mass ratio] 17.6 mg/mg 10-20 [facility] Work Phone: Laboratory - Hematology and Cell countson 11-26-2021 Erythrocyte distribution width (RBC) [Entitic vol] 42.9 fL 35.1-43.9 [facility] Work Phone: Erythrocyte distribution width (RBC) [Ratio] 13.1 % 11.6-14.6 [facility] Work Phone: Immature granulocytes/100 WBC (Bld) 0.700 % 0.0-0.9 [facility] Work Phone: [phone] Comment on above: IG% - Immature Granu locytes (promyelocytes, myelocytes and metamyelocytes) > 1% indicates that a LEFT SHIFT is Present. MCH (RBC) [Entitic mass] 30.0 pg 27.0-32.0 [facility] Work Phone: [phone] Nucleated RBC/100 WBC (Bld) [Ratio] 0 % 0-5 [facility] Work Phone: [phone] MCHC Auto (RBC) [Mass/Vol]on 11-26-2021 MCHC (RBC) [Mass/Vol] 33.6 g/dL 32-36 [facility] Work Phone: [phone] Panel Informationon 11-26 Estimated GFR (MDRD) Amer 94 mL/min >60 [facility] Work Phone: [phone] Comment on above: GFR Calc Estimated GFR (MDRD) Non-Af Amer 78 mL/min >60 [facility] Work Phone: [phone] Comment on above: Non- GFR Calc Thyroid Stimulating Hormone (TSH) 1.20 uIU/mL 0.358-3.74 [facility] Work Phone: [phone] Urine Microalbumin/Creatinine Ratio 4.8 mg/g CRE <30 [facility] Work Phone: [phone] Platelets bldon 11-26-2021 Platelets (Bld) [#/Vol] 410 10*3/uL 150-450 [facility] Work Phone: [phone] Serum or plasma albumin jason urement (mass/volume)on 11-26-2021 Albumin [Mass/Vol] 3.3 g/dL 3.2-5.0 [facility] Work Phone: [phone] Serum or plasma albumin/glob ulin mass ratioon 11-26-2021 Albumin/Globulin [Mass ratio] 0.8 {ratio} 0.9-2.4 [facility] Work Phone: [phone] Serum or plasma calcium jason urement (mass/volume)on 11-26-2021 Calcium [Mass/Vol] 8.8 mg/dL 8.5-10.1 [facility] Work Phone: Serum or plasma cholesterol in HDL measurement (mass/volume)on 11-26-2021 Cholesterol in HDL [Mass/Vol] 33 mg/dL >40 [facility] Work Phone: Comment on above: The drugs N-Acetylcy steine and Metamizole may falsely depress this assay. Reference Range HDL <40 mg/dL Low HDL Cholesterol HDL >or= 60 mg/dL High HDL Cholesterol Serum or plasma cholesterol in VLDL measurement (mass/volume)on 11-26-2021 Cholesterol in VLDL [Mass/Vol] 36 mg/dL 5-40 [facility] Work Phone: Serum or plasma creatinine m easurement (mass/volume)on 11-26-2021 Creatinine [Mass/Vol] 1.08 mg/dL 0.70-1.30 [facility] Work Phone: Comment on above: The validity of the calculated GFR & GFRAA in patients over 70 years has not been determined. Clinical correlation is essential. Serum or plasma low density lipoprotein (LDL) cholesterol measurement (mass/volume)on 11-26-2021 Cholesterol in LDL [Mass/Vol] 124 mg/dL 0-130 [facility] Work Phone: Serum or plasma urea nitroge n measurement (mass/volume)on 11-26-2021 Urea nitrogen [Mass/Vol] 19 mg/dL 7-18 [facility] Work Phone: Thin prep Papanicolaou smear with manual screeningon 11-26-2021 Thin prep Papanicolaou smear with manual screening 15 U/L 15-37 [facility] Work Phone: Thin prep Papanicolaou smear with manual screening 5 5-15 [facility] Work Phone: Thin prep Papanicolaou smear with manual screening 7.5 mg/L NO RANGE EST. [facility] Work Phone: Urine creatinine measurement (mass/volume)on 11-26-2021 Creatinine (U) [Mass/Vol] 157.00 mg/dL NO RANGE EST. [facility] Work Phone: .Auto Diffon 11-25-2019 Ammonia (P) [Mass/Vol] 0.80 10 3/mcL Normal 0.15-1.00 On License Of [facility] ([place]) Comment on above: Performed By: #### C BC, ADIFF, ANEU, CMP, GFR #### [place] [address] #### TROP #### [address] [address] Basophils (Bld) [#/Vol] 0.10 10 3/mcL Normal 0.00-0.19 On License Of [facility] ([place]) Comment on above: Performed By: #### C BC, ADIFF, ANEU, CMP, GFR #### [place] [address] #### TROP #### [address] [address] Basophils/100 WBC (Bld) 1.1 % Normal 0.0-2.5 A [facility] ([place]) Comment on above: Performed By: #### C BC, ADIFF, ANEU, CMP, GFR #### [place] [address] #### TROP #### [address] [address] Eosinophils (Bld) [#/Vol] 0.40 10 3/mcL Normal 0.00-0. 40 On License Of [facility] ([place]) Comment on above: Performed By: #### C BC, ADIFF, ANEU, CMP, GFR #### [place] [address] #### TROP #### [address] [address] Eosinophils/100 WBC (Bld) 2.9 % Normal 0.0-7.0 On License Of [facility] ([place]) Comment on above: Performed By: #### C BC, ADIFF, ANEU, CMP, GFR #### [address] [address] #### TROP #### [address] [address] Lymphocytes (Bld) [#/Vol] 3.70 10 3/mcL Normal 0.77-3. 85 On License Of [facility] ([place]) Comment on above: Performed By: #### C BC, ADIFF, ANEU, CMP, GFR #### [address] [address] #### TROP #### [address] [address] Lymphocytes/100 WBC (Bld) 28.0 % Normal 10.0-50.0 On License Of [facility] ([place]) Comment on above: Performed By: #### C BC, ADIFF, ANEU, CMP, GFR #### [address] [address] #### TROP #### [address] [address] Monocytes/100 WBC (Bld) 6.0 % Normal 1.7-13.0 [facility] ([place]) Comment on above: Performed By: #### C BC, ADIFF, ANEU, CMP, GFR #### [address] [address] #### TROP #### [address] [address] Neutrophils/100 WBC (Bld) 62.0 % Normal 37.0-80.0 On [facility] Of [facility] ([place]) Comment on above: Performed By: #### C BC, ADIFF, ANEU, CMP, GFR #### [address] [address] #### TROP #### [address] [address] .GFRon 11-25-2019 GFR Non- 66 ml/min/1.73sqm Normal On License Of [facility] ([place]) Comment on above: Result Comment: GFR Population [...] #### C BC, ADIFF, ANEU, CMP, GFR ####[place] [address]#### TROP ####[address] [address] GFR 80 ml/min/1.73sqm Normal On License Of [facility] ([place]) Comment on above: Result Comment: GFR Population [...] #### C BC, ADIFF, ANEU, CMP, GFR ####[place] [id number]#### TROP ####[address] [address] .NEUABSon 11-25-2019 Neutrophils (Bld) [#/Vol] 8.30 10 3/mcL High 2.85-6. 16 On License Of [facility] ([place] Comment on above: Performed By: #### C BC, ADIFF, ANEU, CMP, GFR #### [address] [address] #### TROP #### [address] [address] CBCon 11-25-2019 Erythrocyte distribution width (RBC) [Ratio] 14.1 % Normal 11.5-14.5 On License Of [facility] ([place] Comment on above: Performed By: #### C BC, ADIFF, ANEU, CMP, GFR #### [address] [address] #### TROP #### [place] [address] Hematocrit (Bld) [Volume fraction] 48.1 % Normal 42.0-52.0 On License Of [facility] ([place] Comment on above: Performed By: #### C BC, ADIFF, ANEU, CMP, GFR #### [place] [address] #### TROP #### [place] [address] Hemoglobin (Bld) [Mass/Vol] 16.1 G/dL Normal 14.0-18.0 On License Of [facility] ([place] Comment on above: Performed By: #### C BC, ADIFF, ANEU, CMP, GFR #### [place] [address] #### TROP #### [place] [address] MCH (RBC) [Entitic mass] 29.8 pg Normal 27.0-31.2 On License Of [facility] ([place] Comment on above: Performed By: #### C BC, ADIFF, ANEU, CMP, GFR #### [place] [address] #### TROP #### [place] [address] MCHC (RBC) [Mass/Vol] 33.5 G/dL Normal 31.8-35.4 [facility] ([place]) Comment on above: Performed By: #### C BC, ADIFF, ANEU, CMP, GFR #### [place] [address] #### TROP #### [address] [address] MCV (RBC) [Entitic vol] 89.0 fL Normal 80.0-94.0 A [facility] ([place]) Comment on above: Performed By: #### C BC, ADIFF, ANEU, CMP, GFR #### [address] [address] #### TROP #### [address] [address] Platelet mean volume (Bld) [Entitic vol] 8.0 fL Normal 7.4-10.4 On License Of [facility] ([place] Comment on above: Performed By: #### C BC, ADIFF, ANEU, CMP, GFR #### [place] [address] #### TROP #### [address] [address] Platelets (Bld) [#/Vol] 208 10 3/mcL Normal 130-400 On License Of [facility] ([place] Comment on above: Performed By: #### C BC, ADIFF, ANEU, CMP, GFR #### [place] [address] #### TROP #### [place] [id number] RBC (Bld) [#/Vol] 5.41 10 6/mcL Normal 4.04-6.13 [facility] ([place]) Comment on above: Performed By: #### C BC, ADIFF, ANEU, CMP, GFR #### [place] [address] #### TROP #### [address] [address] WBC (Bld) [#/Vol] 13.30 10 3/mcL High 4.60-10.80 [facility] ([place]) Comment on above: Performed By: #### C BC, ADIFF, ANEU, CMP, GFR #### [place] [address] #### TROP #### [address] [address] CMPon 11-25-2019 Albumin [Mass/Vol] 3.6 G/dL Normal 3.5-5.0 [facility] ([place]) Comment on above: Performed By: #### C BC, ADIFF, ANEU, CMP, GFR ####[facility] [place] [address]#### TROP ####[place] [address] Albumin/Globulin [Mass ratio] 1.2 {ratio} Normal 1.1-2.5 On License Of [facility] ([place] Comment on above: Performed By: #### C BC, ADIFF, ANEU, CMP, GFR ####[place] [address]#### TROP ####[place] [address] ALP [Catalytic activity/Vol] 63 U/L Normal 40-135 On License Of [facility] ([place] Comment on above: Performed By: #### C BC, ADIFF, ANEU, CMP, GFR ####[place] [address]#### TROP ####[address] [address] ALT [Catalytic activity/Vol] 27 U/L Normal 10-35 On License Of [facility] ([place] Comment on above: Performed By: #### C BC, ADIFF, ANEU, CMP, GFR ####[place] [address]#### TROP ####[address] [address] AST [Catalytic activity/Vol] 19 U/L Normal 10-40 On License Of [facility] ([place] Comment on above: Performed By: #### C BC, ADIFF, ANEU, CMP, GFR ####[facility] [place] [address]#### TROP ####[address] [address] Bili Total 0.3 mg/dL Normal 0.2-1.0 On License Of [facility] ([place] Comment on above: Result Comment: Use of this assay is not recommended for patients undergoing treatment with eltrombopag due to the potential for falsely elevated results. Performed By: #### C BC, ADIFF, ANEU, CMP, GFR ####[place] [address]#### TROP ####[address] [address] Calcium [Mass/Vol] 8.2 mg/dL Low 8.4-10.2 [facility] ([place]) Comment on above: Performed By: #### C BC, ADIFF, ANEU, CMP, GFR ####[place] [address]#### TROP ####[place] [address] Chloride [Moles/Vol] 97 mmol/L Low 98-107 [facility] ([place]) Comment on above: Performed By: #### C BC, ADIFF, ANEU, CMP, GFR ####[place] [address]#### TROP ####[place] [address] CO2 [Moles/Vol] 23 mmol/L Normal 22-29 On License Of [facility] ([place] Comment on above: Performed By: #### C BC, ADIFF, ANEU, CMP, GFR ####[place] [address]#### TROP ####[place] [address] Creatinine [Mass/Vol] 1.20 mg/dL Normal 0.70-1.30 [facility] ([place]) Comment on above: Performed By: #### C BC, ADIFF, ANEU, CMP, GFR ####[place] [address]#### TROP ####[place] [address] Electrolyte Balance 12.0 mEq/L Normal [facility] ([place]) Comment on above: Performed By: #### C BC, ADIFF, ANEU, CMP, GFR ####[facility] [place] [address]#### TROP ####[address] [address] Globulin (S) [Mass/Vol] 3.1 G/dL Normal A [facility] ([place] Comment on above: Performed By: #### C BC, ADIFF, ANEU, CMP, GFR ####[address] [address]#### TROP ####[address] [address] Glucose [Mass/Vol] 105 mg/dL Normal 70-105 [facility] ([place]) Comment on above: Performed By: #### C BC, ADIFF, ANEU, CMP, GFR ####[address] [address]#### TROP ####[address] [address] Potassium [Moles/Vol] 3.4 mmol/L Low 3.5-5.1 [facility] ([place]) Comment on above: Performed By: #### C BC, ADIFF, ANEU, CMP, GFR ####[address] [address]#### TROP ####[address] [address] Protein [Mass/Vol] 6.7 G/dL Normal 6.4-8.2 [facility] ([place]) Comment on above: Performed By: #### C BC, ADIFF, ANEU, CMP, GFR ####[address] [address]#### TROP ####[address] [address] Sodium [Moles/Vol] 132 mmol/L Low 136-145 [facility] ([place]) Comment on above: Performed By: #### C BC, ADIFF, ANEU, CMP, GFR ####[address] [address]#### TROP ####[facility] [place] [address] Urea nitrogen [Mass/Vol] 13 mg/dL Normal 7-18 On License Of [facility] ([place] Comment on above: Performed By: #### C BC, ADIFF, ANEU, CMP, GFR ####[address] [place], [place] [address]#### TROP ####[facility] [place] [address] Urea nitrogen/Creatinine [Mass ratio] 11 ratio Normal 7-27 On License Of [facility] ([place] Comment on above: Performed By: #### C BC, ADIFF, ANEU, CMP, GFR ####[address] [place], [place] [address]#### TROP ####[address] [address] [address] ABD/PELVIS W/ IV CONTRAST ONLYon 11-25-2019 [...] 11/25/2019 12:02:57 AM Ordering Provider:Carlos Enrique Constantino Counts Include [address] At [facility] ([place] CT HEAD OR BRAIN W/O CONTRAS Ton 11-25-2019 CT HEAD OR BRAIN W/O CONTRAST [...] Date: 11/24/2019 11:53:05 PM Ordering Provider:Carlos Enrique Cedeno On License Of [facility] ([place] CT MAXILLOFACIAL W/O CONTRAS Ton 11-25-2019 CT MAXILLOFACIAL W/O CONTRAST ORIGINAL CT [...] 11/25/2019 1:49:36 AM Ordering Provider:Carlos Enrique Constantino [facility]) CT SPINE CERVICAL W/O CONTRA STon 11-25-2019 CT SPINE CERVICAL W/O CONTRAST ORIGINAL [...] 11/24/2019 11:50:05 PM Ordering Provider:Carlos Enrique Cedeno [facility]) TROPon 11-25-2019 Troponin I.cardiac [Mass/Vol] ng/mL Normal 0.000-0.040 On License Of [facility] ([place]) Comment on above: Result Comment: Trop onin I reference range: 0.00-0.040 ng/mL Negative and non-diagnostic. >0.040 ng/mL Consistent with cardiac damage, increased clinical risk and possibility of myocardial infarction. Serial measurements, a rise & fall in test results, clinical history, appropriate symptoms and/or ECG changes may help assess possibility of NV. *Other non-acute coronary syndrome conditions such as CHF, myocarditis, pulmonary emboli, sepsis and cardiac surgery could result in myocardial damage and increased troponin levels. Performed By: #### C BC, ADIFF, ANEU, CMP, GFR #### [facility] [address] [place], [place] [address] #### TROP #### [place] [id number] [address] [place] [address] XR CHEST 1 VIEWon 11-25-2019 XR CHEST [...] 11/24/2019 11:23:30 PM Ordering Provider:Carlos Enrique Constantino Counts Include [address] [facility] ([place] XR PELVIS 1 OR 2 VIEWSon XR [...] 11/24/2019 11:24:17 PM Ordering Provider:Carlos Enrique Constantino Counts Include [address] At [facility] ([place] Vital Signs Date Time Vital Sign Value Performing Clinician Marito estrella 11-27-2021 19:23-0400 Diastolic blood pressure 88 mm[Hg] [facility] Work Phone: 11-27-2021 19:23-0400 Heart rate 91 /min [facility] [place] Work Phone: 11-27-2021 19:23-0400 Respiratory rate 18 /min [facility] Work Phone: 11-27-2021 19:23-0400 SaO2% (BldA) [Mass fraction] 96 % [facility] Work Phone: 11-27-2021 19:23-0400 Systolic blood pressure 131 mm[Hg] [facility] Work Phone: 11-27-2021 16:34-0400 Body height 182.88 cm [facility] [place] Work Phone: 11-27-2021 16:34-0400 Body mass index (BMI) [Ratio] 31 kg/m2 [facility] Work Phone: 11-27-2021 16:34-0400 Body temperature 98.5 [degF] [facility] Work Phone: 11-27-2021 16:34-0400 Body weight 103.87 kg [facility] [place] Work Phone: Encounters Encounter Date Encounter Type Care Provider Facility Start: 10-11-2024 ambulatory Manny Barber Facility:[facility] Start: 10-09-2024 ambulatory Manny aBrber Facility:[facility] Start: 08-29-2023 End: 08-29-[address] Manny Barber Work Phone: [facility] Work Phone: Start: 08-29-2023 End: 08-29-[address] Manny Barber Work Phone: [facility] Work Phone: Start: 07-28-2023 End: 07-28-[address] Manny Barber Work Phone: [facility] Work Phone: Start: 07-28-2023 End: 07-28-[address] Manny Barber Work Phone: [facility] Work Phone: Start: 06-10-2023 End: 06-10-[address] Manny Barber Work Phone: [facility] Work Phone: Start: 06-10-2023 End: 06-10-[address] Manny Barber Work Phone: [facility] Work Phone: Start: 05-10-2023 End: 05-10-[address] Manny Barber Work Phone: [facility] Work Phone: Start: 11-27-2021 End: 11-27-2021 Emergency department patient visit [facility] Start: 11-27-2021 End: 11-27-2021 Patient encounter procedure [facility] Start: 11-26-2021 End: 11-26-2021 Patient encounter procedure [facility] Family Procedures Date Procedure Procedure Detail Performing Clinician Start: 08-29-2023 MRI of lumbar spine Dr. Manny Barber Work Phone: Start: 06-10-2023 X-ray of lumbosacral spine Dr. Manny Barber Work Phone: Start: 11-27-2021 CT angiography of ch est with contrast Start: 11-27-2021 Plain chest X-ray Plan of Treatment Date Care Activity Detail Author Start: 11-27-2021 [facility] Work Phone: Patient Education ED Dyspnea [facility] Work Phone: Patient referral [facility] Work Phone: Payers Date Payer Category Payer Self-pay [id number] 2024 Unknown [id number] Unknown [id number] Unknown [id number] Social History Date Type Detail Facility Start: 11-27-2021 End: 05-10-2023 Tobacco smoking status NHIS Unknown if ever smoked [facility] Start: 1975 Sex Assigned At Male [facility] Discharge summary 08-01-2023 Note Date & Type Note Facility 08-01-2023 Discharge summary Note Date/Time August 01, 2023 6:37 pm [facility] [address] [place] [address] [address] [place] [address] / REHABILITATION SERVICES DISCHARGE SUMMARY MR#: [id number] Acct: [id number] Name: KHANG VAZ Rep #: [id number] : 1975 48 From: Shanna Wheeler PT, Cert. MDT Referring Dr.: Dr. Manny Barber MD Status: REG RCR Insurance: [employer]EL[employer]ANCE Discharge Summary D/C summary: [...] please feel free to call me at [phone]. Thank you for the referral of thispatient. Sincerely, Shanna Wheeler, PT, Cert MDT Balance/Gait/Functional tests Balance/Special Test Scores Oswestry Low Back Score: 19 Improvement % Improvement: 10 <Electronically signed by Shanna Wheeler PT, Cert. MDT> 08/01/23 1837 CC: Dr. 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) acute [facility] Work Phone: Summary Purpose Family History No Family History Records FoundNo Family History Records Found Advance Directives No Advanced Directives Records Found Advance Directive Response Recorded Date/ Time Living Will No November 27, 2021 5:17pm Power of Control Systems Developer No November 27 5:17pm Advance Directive Response Recorded Date/ Time Living Will No November 27, 2021 4:17pm Power of Control Systems Developer No November 27 4:17pm Chief Complaint [...] section and content) DATE CREATED AUTHOR 01/01/2020 [facility] ([place]) DATE CREATED AUTHOR AUTHOR'S ORGANIZ ATION 10/11/2024 [facility] [place] Goals (unrecognized section and content) Goals may [...] BE BASED ON THE PRIMARY CLINICAL RECORDS. [facility] [employer] [facility]. provides no warranty or guarantee of the accuracy or completeness of information in this document.
== END | disposition home or self-care (01) ==
LOC: MFPLAB 14:05 → LABSPEC 14:10
PROVIDERS: PCP Family Medicine; Referring Provider Family Medicine; Visit Provider Family Medicine
DX: I10 Essential (primary) hypertension (principal)
CPT/HCPCS: 82043; 82570

== ENCOUNTER → 2025-02-20 | Outpatient (CLI) | payer OTHER, SELFPAY ==
[2025-02-20 18:05] LABS: Hematocrit 49.6 % (40-54); Hemoglobin 16.8 g/dL (13.0-16.5); Mean Corp Hgb Conc 33.9 g/dL (32-36); Mean Corpuscular Volume 88.9 fL (80-94); Mean Platelet Vol. 10.3 fl (6.2-12.0); Platelet Count 279 K/mm3 (150-450); RBC Distribution Width CV 13.8 % (11.6-14.6); RBC Distribution Width SD 44.5 fl (35.1-43.9); Red Blood Count 5.58 M/mm3 (4.6-6.2); White Blood Count 15.5 K/mm3 (4.4-11.0)
--- OUTSIDE RECORDS SUMMARY | 2025-02-20 18:22 | XMS RPT_ITS | CCD ---
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 Manny Barber Primary Care Provider [phone] Dr. Manny Barber Referring Provider Micaela ARGUETA, PA Demario Tolliver Attending Provider Dr. Manny Barber MD Primary Care Provider Dr. Manny Barber MD Attending Provider Dr. Manny Barber MD Referring Provider Manny Barber Attending Unavailable Manny Barber Referring Unavailable Manny Barber Primary Care Unavailable Manny Barber Attending Unavailable Manny Barber Referring Unavailable Manny Barber Primary Care Unavailable Medications Current Medications Medication Drug Class(es) Dates Sig (Normalized) Sig (Original) Fluticasone Propionate (8 sources) Corticosteroid Start: 11-27-2021 Fluticasone Propionate (Flovent Diskus) 250 mcg/actuation blister with device Active NMA INHALATION November 27, 2021 12:00am Start: 11-27-2021 Fluticasone Pr opionate (Flovent Diskus) 250 mcg/actuation blister with device Active EACH INHALATION November 26, 2021 11:00pm Start: 11-27-2021 Fluticasone Pr opionate (Flovent Diskus) 250 mcg/actuation blister with device Active EACH INHALATION November 27, 2021 12:00am Fluticasone Propion-Salmeterol (8 sources) Corticosteroid, beta2-Adrenergic Agonist Start: 11-27-2021 Fluticasone Propion-Salmeterol (Advair Diskus) 250-50 mcg/dose blister with device Active NMA INHALATION November 27, 2021 12:00am Start: 11-27-2021 Fluticasone Pr opion-Salmeterol (Advair Diskus) 250-50 mcg/dose blister with device Active EACH INHALATION November 26, 2021 11:00pm Start: 11-27-2021 Fluticasone Pr opion-Salmeterol (Advair Diskus) 250-50 mcg/dose blister with device Active EACH INHALATION November 27, 2021 12:00am pravastatin sodium 10 mg oral tablet (8 sources) HMG-CoA Reductase Inhibitor Start: 11-27-2021 Pravastatin 10 mg tablet Active {tbl} November 27, 2021 12:00am Start: 11-27-2021 Pravastatin Ac tive TABLET November 27, 2021 12:00am quinapril 5 mg oral tablet (8 sources) Angiotensin Converting Enzyme Inhibitor Start: 11-27-2021 Quinapril 5 mg table t Active {tbl} November 27, 2021 12:00am Start: 11-27-2021 Quinapril Acti ve TABLET November 27, 2021 12:00am Problems Problem Classification Problem Date Documented Date Episodic/Chronic Administrative/social admission (11 sources) Administrative reason for encounter; Translations: [Encounter for other administrative examinations] 05-12-2021 Episodic Asthma (1 source) Unspecified asthma, uncomplicated; Translations: [Unspecified asthma, uncomplicated] Onset: 10-16-2024 Chronic Essential hypertension (1 source) Essential (primary) hypertension; Translations: [Essential (primary) hypertension] Onset: 10-17-2024 Chronic Other lower respiratory disease (8 sources) Dyspnea; Translations: [Dyspnea, unspecified] 12-05-2021 Episodic Viral infection (8 sources) Disease caused by 2019-nCoV; Translations: [COVID-19] 11-27-2021 Episodic Results Test Name Value Interpretation Reference Range Facility Microalb:Creat Ratio,Random URon 10-11-2024 Creatinine [Mass/Vol] 149.00 mg/dL Normal 39.00- 259.0 0 [facility] Comment on above: Performed By: #### L 502.0250 #### [facility] [address] [place], [place], [address] MALB:CREAT UNABLE TO CALCULATE Normal [facility] [place] Comment on above: Performed By: #### L 502.0250 #### [facility] [address] [place], [place], [address] MICROALBUMIN,UR < 12.0 Normal NO RANGE EST. [facility] Comment on above: Performed By: #### L 502.0250 #### [facility] [address] [place], [place], [id number] Microalbumin/creat ratio urO rdered By: Manny Barber on 10-11-2024 Urine microalbumin/creatinine ratio measurement UNABLE TO CALCULATE mg/g CRE [facility] Random urine creatinine jason urement (mass/volume)Ordered By: Manny Barber on 10-11-2024 Creatinine Unsp time (U) [Mass/Vol] 149.00 mg/dL 39.00-259.0 0 [facility] Urine albumin measurement wi th detection limit of 20 mg/L or less (mass/volume)Ordered By: Manny Barber on 10-11-2024 Albumin DL <= 20 mg/L (U) [Mass/Vol] < 12.0 mg/L NO RANGE EST. [facility] Absolute lymphocyte countOrd ered By: Manny Barber on 10-09-2024 Lymphocytes Auto (Unsp spec) [#/Vol] 2.11 10*3/uL 0.83-4.51 [facility] Absolute neutrophil countOrd ered By: Manny Barber on 10-09-2024 Neutrophils (Bld) [#/Vol] 5.6 10*3/uL 2.0-7.7 [facility] Anion gap in Serum or Plasma Ordered By: Manny Barber on 10-09-2024 Anion gap [Moles/Vol] 11 mmol/L 5-15 [facility] Automated lymphocyte count a s percentage of total leukocytesOrdered By: Manny Barber on 10-09-2024 Lymphocytes/100 WBC Auto (Unsp spec) 24.2 % - [facility] BUN/creatinine ratioOrdered By: Manny Barber on 10-09-2024 Urea nitrogen/Creatinine [Mass ratio] 17.6 mg/mg 10-20 [facility] Basophil percentageOrdered B y: Manny Barber on 10-09-2024 Basophils/100 WBC (Bld) 0.6 % 0-1 [facility] Bilirubin, totalOrdered By: Manny Barber on 10-09-2024 Bilirubin [Mass/Vol] 0.40 mg/dL 0.00-1.30 [facility] CBC W/Diff, Automatedon 09-23 Absolute Lymph 2.11 X10 3/uL Normal 0.83-4.51 [facility] Comment on above: Performed By: #### L 100.0100, L500.4050, L500.4100, L501.9910 #### [facility] [address] [place], [address] Absolute Neut 5.6 X10 3/uL Normal 2.0-7.7 [facility] Comment on above: Performed By: #### L 100.0100, L500.4050, L500.4100, L501.9910 #### [facility] [address] [place], [address] Basophils/100 WBC (Bld) 0.6 % Normal 0-1 [facility] Comment on above: Performed By: #### L 100.0100, L500.4050, L500.4100, L501.9910 #### [facility] [address] [place], [address] Eosinophils/100 WBC (Bld) 3.6 % Normal 0-5 [facility] Comment on above: Performed By: #### L 100.0100, L500.4050, L500.4100, L501.9910 #### [facility] [address] [place], [address] Erythrocyte distribution width (RBC) [Ratio] 13.8 % Normal 11.6-14.6 [facility] Comment on above: Performed By: #### L 100.0100, L500.4050, L500.4100, L501.9910 #### [facility] [address] [place], [address] Hematocrit (Bld) [Volume fraction] 46.7 % Normal 40-54 [facility] Comment on above: Performed By: #### L 100.0100, L500.4050, L500.4100, L501.9910 #### [facility] [address] [place], [address] Hemoglobin (Bld) [Mass/Vol] 15.7 g/dL Normal 13.0-16.5 [facility] Comment on above: Performed By: #### L 100.0100, L500.4050, L500.4100, L501.9910 #### [facility] [address] [place], [address] IG% 0.500 Normal 0.0-0.9 [facility] Comment on above: Result Comment: IG% - Immature Granulocytes (promyelocytes, myelocytes and metamyelocytes) > 1% indicates that a LEFT SHIFT is Present. Performed By: #### L 100.0100, L500.4050, L500.4100, L501.9910 #### [facility] [address] [place], [address] Lymphocytes/100 WBC (Bld) 24.2 % Normal 19-41 [facility] Comment on above: Performed By: #### L 100.0100, L500.4050, L500.4100, [id number] #### [facility] [address] [place], [address] MCH (RBC) [Entitic mass] 29.7 pg Normal 27.0-32.0 [facility] Comment on above: Performed By: #### L 100.0100, L500.4050, L500.4100, [id number] #### [facility] [address] [place], [address] MCHC (RBC) [Mass/Vol] 33.6 g/dL Normal 32-36 [facility] Comment on above: Performed By: #### L 100.0100, L500.4050, L500.4100, [id number] #### [facility] [address] [place], [address] MCV (RBC) [Entitic vol] 88.3 fL Normal 80-94 [facility] Comment on above: Performed By: #### L 100.0100, L500.4050, L500.4100, [id number] #### [facility] [address] [place], [address] Monocytes/100 WBC (Bld) 7.3 % Normal 0-10 [facility] Comment on above: Performed By: #### L 100.0100, L500.4050, L500.4100, [id number] #### [facility] [address] [place], [address] Neutrophils/100 WBC (Bld) 63.8 % Normal 47-70 [facility] Comment on above: Performed By: #### L 100.0100, L500.4050, L500.4100, [id number] #### [facility] [address] [place], [address] Nucleated RBC (Bld) [#/Vol] 0 10*3/uL Normal 0-5 [facility] Comment on above: Performed By: #### L 100.0100, L500.4050, L500.4100, [id number] #### [facility] [address] [place], [address] Platelet mean volume (Bld) [Entitic vol] 10.9 fL Normal 6.2-12.0 [facility] Comment on above: Performed By: #### L 100.0100, L500.4050, L500.4100, [id number] #### [facility] [address] [place], [address] Platelets (Bld) [#/Vol] 244 10*3/uL Normal 150-450 [facility] Comment on above: Performed By: #### L 100.0100, L500.4050, L500.4100, [id number] #### [facility] [address] [place], [address] RBC (Bld) [#/Vol] 5.29 10*6/uL Normal 4.6-6.2 [facility] [place] Comment on above: Performed By: #### L 100.0100, L500.4050, L500.4100, [id number] #### [facility] [address] [place], [address] RDW SD 44.3 fl High 35.1-43.9 [facility] Comment on above: Performed By: #### L 100.0100, L500.4050, L500.4100, [id number] #### [facility] [address] [place], [address] WBC (Bld) [#/Vol] 8.7 10*3/uL Normal 4.4-11.0 [facility] Comment on above: Performed By: #### L 100.0100, L500.4050, L500.4100, L501.9910 #### [facility] [address] [place], [address] Calculated very low density lipoprotein (VLDL) cholesterol measurementOrdered By: Manny Barber on 10-09-2024 Calculated very low density lipoprotein (VLDL) cholesterol measurement 25 mg/dL 5-40 [facility] Carbon dioxide, total [Moles /volume] in Central venous bloodOrdered By: Manny Barber on 10-09-2024 CO2 [Moles/Vol] 23.3 mmol/L 21.0-32.0 [facility] Chloride assayOrdered By: Geoff Barber on 10-09-2024 Chloride [Moles/Vol] 107 mmol/L 98-108 [facility] Comprehensive Metabolic Prof ilon 10-09-2024 Albumin [Mass/Vol] 4.3 g/dL Normal 3.5-5.0 [facility] Comment on above: Performed By: #### L 100.0100, L500.4050, L500.4100, L501.9910 #### [facility] [address] [place], [address] Albumin/Globulin [Mass ratio] 1.5 {ratio} Normal 0.9-2.4 [facility] Comment on above: Performed By: #### L 100.0100, L500.4050, L500.4100, L501.9910 #### [facility] [address] [place], [address] ALK PHOS 62 U/L Normal 40-129 [facility] Comment on above: Performed By: #### L 100.0100, L500.4050, L500.4100, L501.9910 #### [facility] [address] [place], [address] ALT [Catalytic activity/Vol] 21 U/L Normal <=46 [facility] Comment on above: Performed By: #### L 100.0100, L500.4050, L500.4100, L501.9910 #### [facility] [address] [place], [address] AST [Catalytic activity/Vol] 19 U/L Normal <=37 [facility] Comment on above: Performed By: #### L 100.0100, L500.4050, L500.4100, L501.9910 #### [facility] [address] [place], [address] Bilirubin [Mass/Vol] 0.40 mg/dL Normal 0.00-1.30 [facility] Comment on above: Performed By: #### L 100.0100, L500.4050, L500.4100, L501.9910 #### [facility] [address] [place], [address] BUN/CRE 17.6 RATIO Normal 10-20 [facility] Comment on above: Performed By: #### L 100.0100, L500.4050, L500.4100, [id number] #### [facility] [address] [place], [address] Calcium [Mass/Vol] 9.2 mg/dL Normal 7.6-11.0 [facility] Comment on above: Performed By: #### L 100.0100, L500.4050, L500.4100, L501.9910 #### [facility] [address] [place], [address] Chloride [Moles/Vol] 107 mmol/L Normal 98-108 [facility] Comment on above: Performed By: #### L 100.0100, L500.4050, L500.4100, L501.9910 #### [facility] [address] [place], [address] CO2 [Moles/Vol] 23.3 mmol/L Normal 21.0-32.0 [facility] Comment on above: Performed By: #### L 100.0100, L500.4050, L500.4100, L501.9910 #### [facility] [address] [place], [address] Creatinine [Mass/Vol] 0.99 mg/dL Normal 0.70-1.20 [facility] Comment on above: Performed By: #### L 100.0100, L500.4050, L500.4100, L501.9910 #### [facility] [address] [place], [address] GAP 11 Normal 5-15 [facility] Comment on above: Performed By: #### L 100.0100, L500.4050, L500.4100, L501.9910 #### [facility] [address] [place], [address] GFR/1.73 sq M.predicted among non-blacks MDRD (S/P/Bld) [Vol rate/Area] 94 mL/min/{1.73_m2} Normal >60 [facility] Comment on above: Result Comment: mL/m in/1.73m2 CKD-EPI Creatinine Equation (2020) Performed By: #### L 100.0100, L500.4050, L500.4100, L501.9910 #### [facility] [address] [place], [address] Globulin (S) [Mass/Vol] 2.8 g/dL Normal 2.2-4.2 [facility] Comment on above: Performed By: #### L 100.0100, L500.4050, L500.4100, L501.9910 #### [facility] [address] [place], [address] Glucose [Mass/Vol] 93 mg/dL Normal 70-99 [facility] Comment on above: Performed By: #### L 100.0100, L500.4050, L500.4100, L501.9910 #### [facility] [address] [place], [address] Potassium [Moles/Vol] 4.2 mmol/L Normal 3.3-5.1 [facility] Comment on above: Performed By: #### L 100.0100, L500.4050, L500.4100, L501.9910 #### [facility] [address] [place], [address] Sodium [Moles/Vol] 141 mmol/L Normal 133-145 [facility] Comment on above: Performed By: #### L 100.0100, L500.4050, L500.4100, L501.9910 #### [facility] [address] [place], [address] T PROT 7.1 g/dL Normal 5.9-8.4 [facility] Comment on above: Performed By: #### L 100.0100, L500.4050, L500.4100, L501.9910 #### [facility] [address] [place], [address] Urea nitrogen [Mass/Vol] 17 mg/dL Normal 4-19 [facility] Comment on above: Performed By: #### L 100.0100, L500.4050, L500.4100, L501.9910 #### [facility] [address] [place], [address] Eosinophil percentageOrdered By: Manny Barber on 10-09-2024 Eosinophils/100 WBC (Bld) 3.6 % 0-5 [facility] Erythrocyte distribution wid th ratioOrdered By: Manny Barber on 10-09-2024 Erythrocyte distribution width (RBC) [Ratio] 13.8 % 11.6-14.6 [facility] Erythrocyte distribution wid th standard deviationOrdered By: Manny Barber on 10-09-2024 Erythrocyte distribution width (RBC) [Ratio] 44.3 fl High 35.1-43.9 [facility] Glomerular filtration rate ( GFR) estimation/1.73 sq m using serum, plasma, or whole bOrdered By: Manny Barber on 10-09-2024 GFR/1.73 sq M.predicted among non-blacks MDRD (S/P/Bld) [Vol rate/Area] 94 mL/min/{1.73_m2} >60 [facility] Comment on above: mL/min/1.73m2 CKD-EP I Creatinine Equation (2020) Hematocrit Auto (Bld) [Volum e fraction]Ordered By: Manny Barber on 10-09-2024 Hematocrit (Bld) [Volume fraction] 46.7 % 40-54 [facility] Hemoglobin measurementOrdere d By: Manny Barber on 10-09-2024 Hemoglobin (Bld) [Mass/Vol] 15.7 g/dL 13.0-16.5 [facility] Immature granulocytes/100 WB C Auto (Bld)Ordered By: Manny Barber on 10-09-2024 Immature granulocytes/100 WBC (Bld) 0.500 % 0.0-0.9 [facility] Comment on above: IG% - Immature Granu locytes (promyelocytes, myelocytes and metamyelocytes) > 1% indicates that a LEFT SHIFT is Present. LDL calc ser/plasOrdered By: Manny Barber on 10-09-2024 Cholesterol in LDL [Mass/Vol] 156 mg/dL [facility] Comment on above: Ovsfmoulao=204-394 m g/dL & Higher Mcol=128 mg/dL or greater Laboratory - Chemistry and C hemistry - challengeOrdered By: Manny Barber on 10-09-2024 AST [Catalytic activity/Vol] 19 U/L <38 [facility] Lipid Profileon 10-09-2024 CHOL:HDL 5.84 Normal [facility] Comment on above: Performed By: #### L 100.0100, L500.4050, L500.4100, L501.9910 #### [facility] [address] [facility] [address] Cholesterol [Mass/Vol] 219 mg/dL High <=200 [facility] Comment on above: Result Comment: Chol esterol level, Desirable <200 mg/dL Borderline high cholesterol 200-239 mg/dL High cholesterol >=240 mg/dL Recommendations of the NCEP Adult Treatment Panel for the following risk-cutoff thresholds for the [place] population. Performed By: #### L 100.0100, L500.4050, L500.4100, L501.9910 #### [facility] [address] [place], [address] Cholesterol in HDL [Mass/Vol] 38 mg/dL Low [facility] Comment on above: Result Comment: Eleanor onal Cholesterol Education Program (NCEP) guidelines: <40 mg/dL: Low HDL-cholesterol (major risk factor for CHD) >= 60 mg/dL: High HDL-cholesterol (negative risk factor for CHD) HDL-cholesterol is affected by a number of factors, e.g. smoking, exercise, hormones, sex and age. Performed By: #### L 100.0100, L500.4050, L500.4100, L501.9910 #### [facility] [address] [place], [address] Cholesterol in LDL [Mass/Vol] 156 mg/dL Normal [facility] Comment on above: Result Comment: Bord ahsseb=738-747 mg/dL Higher Zako=087 mg/dL or greater Performed By: #### L 100.0100, L500.4050, L500.4100, L501.9910 #### [facility] [address] [place], [address] Cholesterol in VLDL [Mass/Vol] 25 mg/dL Normal 5-40 [facility] Comment on above: Performed By: #### L 100.0100, L500.4050, L500.4100, L501.9910 #### [facility] [address] [place], [address] Triglyceride [Mass/Vol] 126 mg/dL Normal [facility] Comment on above: Result Comment: The drugs N-Acetylcysteine and Metamizole may falsely depress this assay. Normal range: <150 mg/dL Borderline High: 150-199 mg/dL High: 200-499 mg/dL Very High: >500 mg/dL Performed By: #### L 100.0100, L500.4050, L500.4100, L501.9910 #### [facility] [address] [place], [address] MCV (mean corpuscular volume ) determinationOrdered By: Manny Barber on 10-09-2024 MCV (RBC) [Entitic vol] 88.3 fL 80-94 [facility] Mean corpuscular hemoglobin (MCH) determinationOrdered By: Manny Barber on 10-09-2024 MCH (RBC) [Entitic mass] 29.7 pg 27.0-32.0 [facility] Mean corpuscular hemoglobin concentration (MCHC) determinationOrdered By: Manny Barber on 10-09-2024 MCHC (RBC) [Mass/Vol] 33.6 g/dL 32-36 [facility] Mean platelet volume determi nationOrdered By: Manny Barber on 10-09-2024 Platelet mean volume (Bld) [Entitic vol] 10.9 fL 6.2-12.0 [facility] Monocyte percentageOrdered B y: Manny Barber on 10-09-2024 Monocytes/100 WBC (Bld) 7.3 % 0-10 [facility] Neutrophil percentageOrdered By: Manny Barber on 10-09-2024 Neutrophils/100 WBC (Bld) 63.8 % 47-70 [facility] Nucleated red blood cell per centageOrdered By: Manny Barber on 10-09-2024 Nucleated RBC/100 WBC (Bld) [Ratio] 0 % 0-5 [facility] PSA,Total - Annual Screenon 10-09-2024 PSA,TOT SCREEN 1.13 ng/mL Normal 0.02-4.00 [facility] Comment on above: Result Comment: This test [...] #### L 100.0100, L500.4050, L500.4100, L501.9910 #### [facility] [address] [place], [address] Platelet countOrdered By: Geoff Barber on 10-09-2024 Platelets (Bld) [#/Vol] 244 10*3/uL 150-450 [facility] Potassium measurement (mass/ volume)Ordered By: Manny Barber on 10-09-2024 Potassium (Unsp spec) [Mass/Vol] 4.2 mmol/L 3.3-5.1 [facility] RBC Auto (Bld) [#/Vol]Ordere d By: Manny Barber on 10-09-2024 RBC (Bld) [#/Vol] 5.29 10*6/uL 4.6-6.2 [facility] [place] Screening total cholesterol/ high density lipoprotein (HDL) cholesterol ratioOrdered By: Manny Barber on 10-09-2024 Cholesterol.total/Cholest jaylon in HDL [Mass ratio] 5.84 {ratio} [facility] Serum creatinine measurement (mass/volume)Ordered By: Manny Barber on 10-09-2024 Creatinine [Mass/Vol] 0.99 mg/dL 0.70-1.20 [facility] Serum globulin measurementOr dered By: Manny Barber on 10-09-2024 Globulin (S) [Mass/Vol] 2.8 g/dL 2.2-4.2 [facility] Serum glucose measurement (m ass/volume)Ordered By: Manny Barber on 10-09-2024 Glucose [Mass/Vol] 93 mg/dL 70-99 [facility] Serum or plasma alanine irene otransferase (ALT) measurementOrdered By: Manny Barber on 10-09-2024 ALT [Catalytic activity/Vol] 21 U/L <47 [facility] Serum or plasma albumin jason urement (mass/volume)Ordered By: Manny Barber on 10-09-2024 Albumin [Mass/Vol] 4.3 g/dL 3.5-5.0 [facility] Serum or plasma albumin/glob ulin mass ratioOrdered By: Manny Barber on 10-09-2024 Albumin/Globulin [Mass ratio] 1.5 {ratio} 0.9-2.4 [facility] Serum or plasma alkaline sawyer sphatase measurementOrdered By: Manny Barber on 10-09-2024 ALP [Catalytic activity/Vol] 62 U/L 40-129 [facility] Serum or plasma calcium jason urement (mass/volume)Ordered By: Manny Barber on 10-09-2024 Calcium [Mass/Vol] 9.2 mg/dL 7.6-11.0 [facility] Serum or plasma cholesterol in HDL measurement (mass/volume)Ordered By: Manny Barber on 10-09-2024 Cholesterol in HDL [Mass/Vol] 38 mg/dL Low >40 [facility] Comment on above: National Cholesterol Education Program (NCEP) guidelines:<40 mg/dL: Low HDL-cholesterol (major risk factor for CHD)>= 60 mg/dL: High HDL-cholesterol (negative risk factor for CHD)HDL-cholesterol is affected by a number of factors, e.g. smoking, exercise, hormones, sex and age. Serum or plasma cholesterol measurement (mass/volume)Ordered By: Manny Barber on 10-09-2024 Cholesterol [Mass/Vol] 219 mg/dL High <201 [facility] Comment on above: Cholesterol level, D esirable <200 mg/dLBorderline high cholesterol 200-239 mg/dLHigh cholesterol >=240 mg/dLRecommendations of the NCEP Adult Treatment Panel for the following risk-cutoff thresholds for the [place] population. Serum or plasma urea nitroge n measurement (mass/volume)Ordered By: Manny Barber on 10-09-2024 Urea nitrogen [Mass/Vol] 17 mg/dL 4-19 [facility] Sodium levelOrdered By: Manny Barber on 10-09-2024 Sodium [Moles/Vol] 141 mmol/L 133-145 [facility] Total proteinOrdered By: Gabby Barber on 10-09-2024 Protein [Mass/Vol] 7.1 g/dL 5.9-8.4 [facility] Triglycerides measurementOrd ered By: Manny Barber on 10-09-2024 Triglyceride [Mass/Vol] 126 mg/dL <199 [facility] Comment on above: The drugs N-Acetylcy steine and Metamizole may falsely depress this assay. Normal range: <150 mg/dLBorderline High: 150-199 mg/dLHigh: 200-499 mg/dLVery High: >500 mg/dL White blood cell (WBC) count Ordered By: Manny Barber on 10-09-2024 WBC (Bld) [#/Vol] 8.7 10*3/uL 4.4-11.0 [facility] Albumin Elph [Mass/Vol]Order ed By: Manny Barber on 06-10-2023 Albumin [Mass/Vol] 3.6 g/dL 2.9-4.4 [facility] Basophil percentageOrdered B y: Manny Barber on 06-10-2023 Bilirubin [Mass/Vol] 0.40 mg/dL 0.20-1.00 [facility] Comment on above: For patients on eltr ombopag therapy, use of Dimension [place] TBIL is not recommended. Chloride [Moles/Vol] 111 mmol/L 98-107 [facility] Glucose [Mass/Vol] 96 mg/dL 74-106 [facility] Hemoglobin (Bld) [Mass/Vol] 16.2 g/dL 13.0-16.5 [facility] Potassium [Moles/Vol] 4.4 mmol/L 3.5-5.1 [facility] Protein [Mass/Vol] 7.5 g/dL 6.4-8.2 [facility] Sodium [Moles/Vol] 142 mmol/L 136-145 [facility] WBC (Bld) [#/Vol] 9.3 10*3/uL 4.4-11.0 [facility] Determination of erythrocyte mean corpuscular volume (MCV)Ordered By: Manny Barber on 06-10-2023 MCV (RBC) [Entitic vol] 90.6 fL 80-94 [facility] Erythrocyte distribution wid th ratioOrdered By: Manny Barber on 06-10-2023 Erythrocyte distribution width (RBC) [Ratio] 13.8 % 11.6-14.6 [facility] Erythrocyte distribution wid th standard deviationOrdered By: Manny Barber on 06-10-2023 Erythrocyte distribution width (RBC) [Entitic vol] 46.0 fL 35.1-43.9 [facility] Hematocrit Auto (Bld) [Volum e fraction]Ordered By: Manny Barber on 06-10-2023 Hematocrit (Bld) [Volume fraction] 50.0 % 40-54 [facility] Laboratory - Chemistry and C hemistry - challengeOrdered By: Manny Barber on 06-10-2023 Albumin/Globulin [Mass ratio] 1.0 {ratio} 0.9-2.4 [facility] ALP [Catalytic activity/Vol] 65 U/L 45-117 [facility] ALT [Catalytic activity/Vol] 28 U/L 16-61 [facility] CO2 [Moles/Vol] 26.0 mmol/L 21.0-32.0 [facility] Globulin (S) [Mass/Vol] 3.8 g/dL 2.2-4.2 [facility] Urea nitrogen/Creatinine [Mass ratio] 18.1 mg/mg 10-20 [facility] Laboratory - Hematology and Cell countsOrdered By: Manny Barber on 06-10-2023 MCH (RBC) [Entitic mass] 29.3 pg 27.0-32.0 [facility] MCHC (RBC) [Mass/Vol] 32.4 g/dL 32-36 [facility] Platelet mean volume (Bld) [Entitic vol] 10.3 fL 6.2-12.0 [facility] Platelets (Bld) [#/Vol] 244 10*3/uL 150-450 [facility] No Panel InformationOrdered By: Manny Barber on 06-10-2023 Addendum Document Comment . [facility] Comment on above: The SPE pattern appe ars unremarkable. Evidence ofmonoclonal protein is not apparent.Performed at: [employer] [employer] [address] [id number] Director: Travis Hinojosa PhD, Phone: [phone] Mwdef-2-Rhcxogbvq 0.3 g/dL 0.0-0.4 [facility] Cpsyf-7-Vtwgseems 0.9 g/dL 0.4-1.0 [facility] Estimated GFR (MDRD) Amer 97 mL/min >60 [facility] Comment on above: GFR Calc Estimated GFR (MDRD) Non-Af Amer 80 mL/min >60 [facility] Comment on above: Non- GFR Calc Gamma Globulins 1.0 g/dL 0.4-1.8 [facility] Prostate Specific Antigen Screen 1.10 ng/mL 0.00-4.00 [facility] Comment on above: This test was perfor med using the TPSA assay method [facility] the[facility]. Values obtained with differentassay methods cannot be used interchangably.When changing PSA assays in the course of monitoring apatient, additional sequential testing should be carriedout to confirm baseline values. Urine Microalbumin/Creatinine Ratio 4.9 mg/g CRE <30 [facility] Protein Fractions Elph [Inte rp]Ordered By: Manny Barber on 06-10-2023 Protein Fractions [Interp] Comment . [facility] Comment on above: Protein electrophore sis scan will follow via computer,mail, or nursing home social worker delivery. RBC Auto (Bld) [#/Vol]Ordere d By: Manny Barber on 06-10-2023 RBC (Bld) [#/Vol] 5.52 10*6/uL 4.6-6.2 [facility] Serum albumin to globulin ra yoli by protein electrophoresisOrdered By: Manny Barber on 06-10-2023 Albumin/Globulin Elph [Mass ratio] 1.1 0.7-1.7 [facility] Serum globulin measurement ( mass/volume)Ordered By: Manny Barber on 06-10-2023 Globulin (S) [Mass/Vol] 3.3 g/dL 2.2-3.9 [facility] Serum or plasma beta globuli n measurement by electrophoresis (mass/volume)Ordered By: Manny Barber on 06-10-2023 Beta globulin Elph [Mass/Vol] 1.0 g/dL 0.7-1.3 [facility] Serum or plasma calcium jason urement (mass/volume)Ordered By: Manny Barber on 06-10-2023 Calcium [Mass/Vol] 9.4 mg/dL 8.5-10.1 [facility] Serum or plasma creatinine m easurement (mass/volume)Ordered By: Manny Barber on 06-10-2023 Creatinine [Mass/Vol] 1.05 mg/dL 0.70-1.30 [facility] Comment on above: The validity of the calculated GFR & GFRAA in patients over 70 years has not been determined. Clinical correlation is essential. Serum or plasma protein mono clonal measurement by electrophoresis (mass/volume)Ordered By: Manny Barber on 06-10-2023 Protein.monoclonal Elph [Mass/Vol] Not Observed g/dL Not Observed [facility] Serum or plasma urea nitroge n measurement (mass/volume)Ordered By: Manny Barber on 06-10-2023 Urea nitrogen [Mass/Vol] 19 mg/dL 7-18 [facility] Thin prep Papanicolaou smear with manual screeningOrdered By: Manny Barber on 06-10-2023 Thin prep Papanicolaou smear with manual screening 3.7 g/dL 3.2-5.0 [facility] Thin prep Papanicolaou smear with manual screening 24 U/L 15-37 [facility] Thin prep Papanicolaou smear with manual screening 5 5-15 [facility] Thin prep Papanicolaou smear with manual screening 5.8 mg/L NO RANGE EST. [facility] Total protein bloodOrdered B y: Manny Barber on 06-10-2023 Protein [Mass/Vol] 6.9 g/dL 6.0-8.5 [facility] Urine creatinine measurement (mass/volume)Ordered By: Manny Barber on 06-10-2023 Creatinine (U) [Mass/Vol] 118.00 mg/dL NO RANGE EST. [facility] Absolute lymphocyte counton 11-27-2021 Lymphocytes Auto (Unsp spec) [#/Vol] 2.10 10*3/uL 0.83-4.51 [facility] Work Phone: Basophil percentageon 2021 Basophils/100 WBC (Bld) 0.6 % 0-1 [facility] Work Phone: Bilirubin [Mass/Vol] 0.50 mg/dL 0.20-1.00 [facility] Work Phone: Comment on above: For patients on eltr ombopag therapy, use of Dimension [place] TBIL is not recommended. Chloride [Moles/Vol] 109 mmol/L 98-107 [facility] Work Phone: Eosinophils/100 WBC (Bld) 1.1 % 0-5 [facility] Work Phone: Glucose [Mass/Vol] 108 mg/dL 74-106 [facility] Work Phone: Comment on above: Fasting Glucose resu lt from 100 to 125 mg/dL suggests IMPAIRED HOMEOSTASIS per A.D.A. criteria. Neutrophils (Bld) [#/Vol] 7.5 10*3/uL 2.0-7.7 [facility] Work Phone: Neutrophils/100 WBC (Bld) 69.4 % 47-70 [facility] Work Phone: Potassium [Moles/Vol] 3.9 mmol/L 3.5-5.1 [facility] Work Phone: Protein [Mass/Vol] 7.1 g/dL 6.4-8.2 [facility] Work Phone: Sodium [Moles/Vol] 140 mmol/L 136-145 [facility] Work Phone: [phone] WBC (Bld) [#/Vol] 10.7 10*3/uL 4.4-11.0 [facility] [place] Work Phone: Blood erythrocytes count (nu mber/volume)on 11-27-2021 RBC (Bld) [#/Vol] 4.98 10*6/uL 4.6-6.2 [facility] [place] Work Phone: Blood hemoglobin measurement (mass/volume)on 11-27-2021 Hemoglobin (Bld) [Mass/Vol] 15.1 g/dL 13.0-16.5 [facility] Work Phone: [phone] Blood lymphocytes/100 leukoc yteson 11-27-2021 Lymphocytes/100 WBC (Bld) 19.6 % 19-41 [facility] Work Phone: [phone] Blood monocytes/100 leukocyt eson 11-27-2021 Monocytes/100 WBC (Bld) 8.7 % 0-10 [facility] Work Phone: [phone] Blood platelet mean volumeon 11-27-2021 Platelet mean volume (Bld) [Entitic vol] 10.1 fL 6.2-12.0 [facility] Work Phone: [phone] Determination of erythrocyte mean corpuscular volume (MCV)on 11-27-2021 MCV (RBC) [Entitic vol] 88.8 fL 80-94 [facility] Work Phone: Hematocrit Auto (Bld) [Volum e fraction]on 11-27-2021 Hematocrit (Bld) [Volume fraction] 44.2 % 40-54 [facility] Work Phone: Laboratory - Chemistry and C hemistry - challengeon 11-27-2021 ALP [Catalytic activity/Vol] 75 U/L 45-117 [facility] Work Phone: ALT [Catalytic activity/Vol] 27 U/L 16-61 [facility] Work Phone: [phone] CO2 [Moles/Vol] 27.0 mmol/L 21.0-32.0 [facility] Work Phone: [phone] Globulin (S) [Mass/Vol] 4.0 g/dL 2.2-4.2 [facility] Work Phone: [phone] Urea nitrogen/Creatinine [Mass ratio] 11.7 mg/mg 10-20 [facility] Work Phone: [phone] Laboratory - Hematology and Cell countson 11-27-2021 Erythrocyte distribution width (RBC) [Entitic vol] 43.1 fL 35.1-43.9 [facility] Work Phone: [phone] Erythrocyte distribution width (RBC) [Ratio] 13.2 % 11.6-14.6 [facility] Work Phone: [phone] Immature granulocytes/100 WBC (Bld) 0.600 % 0.0-0.9 [facility] Work Phone: [phone] Comment on above: IG% - Immature Granu locytes (promyelocytes, myelocytes and metamyelocytes) > 1% indicates that a LEFT SHIFT is Present. MCH (RBC) [Entitic mass] 30.3 pg 27.0-32.0 [facility] Work Phone: [phone] Nucleated RBC/100 WBC (Bld) [Ratio] 0 % 0-5 [facility] Work Phone: [phone] MCHC Auto (RBC) [Mass/Vol]on 11-27-2021 MCHC (RBC) [Mass/Vol] 34.2 g/dL 32-36 [facility] Work Phone: No Panel Informationon 11-27 Estimated Creatinine Clearance Calc 91.27 ml/min [facility] Work Phone: [phone] Estimated GFR (MDRD) Amer 91 mL/min >60 [facility] Work Phone: [phone] Comment on above: GFR Calc Estimated GFR (MDRD) Non-Af Amer 76 mL/min >60 [facility] Work Phone: Comment on above: Non- GFR Calc Troponin I High Sensitivity 4 pg/mL 3.0-78.0 [facility] Work Phone: Comment on above: Please Note: New Bharati t Units and Gender Specific Reference Ranges. For more information see Policy Stat Procedure [place] High Sensitivity Troponin (TNIH) and attachments. D-Dimer Quantitative (PE/DVT) 1.78 FEU/ug/m 0.27-0.49 [facility] Work Phone: Comment on above: D-Dimer ELEVATED (>0 .49): Additional studies and clinicalassessments are indicated to conclude diagnosis of:Deep Vein Thrombosis (DVT) or Pulmonary Embolism (PE)CRITICAL VALUE VERIFIED. CALL[facility] EPHRAIM STEVENSON [facility]11/27/21 1523 Red Davies.RESULTS READ BACK BY SAME. Platelets bldon 11-27-2021 Platelets (Bld) [#/Vol] 378 10*3/uL 150-450 [facility] Work Phone: Serum or plasma albumin jason urement (mass/volume)on 11-27-2021 Albumin [Mass/Vol] 3.1 g/dL 3.2-5.0 [facility] Work Phone: Serum or plasma albumin/glob ulin mass ratioon 11-27-2021 Albumin/Globulin [Mass ratio] 0.8 {ratio} 0.9-2.4 [facility] Work Phone: Serum or plasma calcium jason urement (mass/volume)on 11-27-2021 Calcium [Mass/Vol] 8.8 mg/dL 8.5-10.1 [facility] Work Phone: Serum or plasma creatinine m easurement (mass/volume)on 11-27-2021 Creatinine [Mass/Vol] 1.11 mg/dL 0.70-1.30 [facility] Work Phone: Comment on above: The validity of the calculated GFR & GFRAA in patients over 70 years has not been determined. Clinical correlation is essential. Serum or plasma urea nitroge n measurement (mass/volume)on 08-05-2022 Urea nitrogen [Mass/Vol] 13 mg/dL 7-18 [facility] Work Phone: Thin prep Papanicolaou smear with manual screeningon 11-27-2021 Thin prep Papanicolaou smear with manual screening 19 U/L 15-37 [facility] Work Phone: Thin prep Papanicolaou smear with manual screening 4 5-15 [facility] Work Phone: Absolute lymphocyte counton 11-26-2021 Lymphocytes Auto (Unsp spec) [#/Vol] 1.38 10*3/uL 0.83-4.51 [facility] Work Phone: Basophil percentageon 2021 Basophils/100 WBC (Bld) 0.4 % 0-1 [facility] Work Phone: Bilirubin [Mass/Vol] 0.40 mg/dL 0.20-1.00 [facility] Work Phone: Comment on above: For patients on eltr ombopag therapy, use of Dimension [place] TBIL is not recommended. Chloride [Moles/Vol] 108 mmol/L 98-107 [facility] Work Phone: Cholesterol [Mass/Vol] 193 mg/dL <200 [facility] Work Phone: Comment on above: <200 mg/dL Desirable 200-240 mg/dL Borderline >240 mg/dL High Risk Eosinophils/100 WBC (Bld) 1.1 % 0-5 [facility] Work Phone: Glucose [Mass/Vol] 91 mg/dL 74-106 [facility] Work Phone: Neutrophils (Bld) [#/Vol] 8.5 10*3/uL 2.0-7.7 [facility] Work Phone: Neutrophils/100 WBC (Bld) 74.7 % 47-70 [facility] Work Phone: Potassium [Moles/Vol] 3.8 mmol/L 3.5-5.1 [facility] Work Phone: Protein [Mass/Vol] 7.5 g/dL 6.4-8.2 [facility] Work Phone: [phone] Sodium [Moles/Vol] 139 mmol/L 136-145 [facility] Work Phone: [phone] Triglyceride [Mass/Vol] 180 mg/dL <199 [facility] Work Phone: [phone] Comment on above: The drugs N-Acetylcy steine and Metamizole may falsely depress this assay.Serum Triglycerides Reference Interval Normal <150 mg/dL Borderline high 150 - 199 mg/dL High 200 - 499 mg/dL Very High > or = 500 mg/dL WBC (Bld) [#/Vol] 11.4 10*3/uL 4.4-11.0 [facility] Work Phone: [phone] Blood erythrocytes count (nu mber/volume)on 11-26-2021 RBC (Bld) [#/Vol] 5.13 10*6/uL 4.6-6.2 [facility] [place] Work Phone: [phone] Blood hemoglobin measurement (mass/volume)on 11-26-2021 Hemoglobin (Bld) [Mass/Vol] 15.4 g/dL 13.0-16.5 [facility] Work Phone: [phone] Blood lymphocytes/100 leukoc yteson 11-26-2021 Lymphocytes/100 WBC (Bld) 12.2 % 19-41 [facility] Work Phone: [phone] Blood monocytes/100 leukocyt eson 11-26-2021 Monocytes/100 WBC (Bld) 10.9 % 0-10 [facility] Work Phone: [phone] Blood platelet mean volumeon 11-26-2021 Platelet mean volume (Bld) [Entitic vol] 10.2 fL 6.2-12.0 [facility] Work Phone: [phone] Determination of erythrocyte mean corpuscular volume (MCV)on 11-26-2021 MCV (RBC) [Entitic vol] 89.3 fL 80-94 [facility] Work Phone: [phone] Erythrocyte sedimentation ra negrita 11-26-2021 ESR (Bld) [Velocity] 42 mm/h 0-20 [facility] Work Phone: [phone] Hematocrit Auto (Bld) [Volum e fraction]on 11-26-2021 Hematocrit (Bld) [Volume fraction] 45.8 % 40-54 [facility] Work Phone: [phone] Laboratory - Chemistry and C hemistry - challengeon 11-26-2021 ALP [Catalytic activity/Vol] 78 U/L 45-117 [facility] Work Phone: [phone] ALT [Catalytic activity/Vol] 27 U/L 16-61 [facility] Work Phone: [phone] CO2 [Moles/Vol] 26.0 mmol/L 21.0-32.0 [facility] Work Phone: [phone] Globulin (S) [Mass/Vol] 4.2 g/dL 2.2-4.2 [facility] Work Phone: [phone] Urea nitrogen/Creatinine [Mass ratio] 17.6 mg/mg 10-20 [facility] Work Phone: [phone] Laboratory - Hematology and Cell countson 11-26-2021 Erythrocyte distribution width (RBC) [Entitic vol] 42.9 fL 35.1-43.9 [facility] Work Phone: [phone] Erythrocyte distribution width (RBC) [Ratio] 13.1 % 11.6-14.6 [facility] Work Phone: [phone] Immature granulocytes/100 WBC (Bld) 0.700 % 0.0-0.9 [facility] Work Phone: [phone] Comment on above: IG% - Immature Granu locytes (promyelocytes, myelocytes and metamyelocytes) > 1% indicates that a LEFT SHIFT is Present. MCH (RBC) [Entitic mass] 30.0 pg 27.0-32.0 [facility] Work Phone: [phone] Nucleated RBC/100 WBC (Bld) [Ratio] 0 % 0-5 [facility] Work Phone: [phone] MCHC Auto (RBC) [Mass/Vol]on 11-26-2021 MCHC (RBC) [Mass/Vol] 33.6 g/dL 32-36 [facility] Work Phone: No Panel Informationon 11-26 Estimated GFR (MDRD) Amer 94 mL/min >60 [facility] Work Phone: Comment on above: GFR Calc Estimated GFR (MDRD) Non-Af Amer 78 mL/min >60 [facility] Work Phone: Comment on above: Non- GFR Calc Thyroid Stimulating Hormone (TSH) 1.20 uIU/mL 0.358-3.74 [facility] Work Phone: [phone] Urine Microalbumin/Creatinine Ratio 4.8 mg/g CRE <30 [facility] Work Phone: [phone] Platelets bldon 11-26-2021 Platelets (Bld) [#/Vol] 410 10*3/uL 150-450 [facility] Work Phone: [phone] Serum or plasma albumin jason urement (mass/volume)on 11-26-2021 Albumin [Mass/Vol] 3.3 g/dL 3.2-5.0 [facility] Work Phone: [phone] Serum or plasma albumin/glob ulin mass ratioon 11-26-2021 Albumin/Globulin [Mass ratio] 0.8 {ratio} 0.9-2.4 [facility] Work Phone: [phone] Serum or plasma calcium jason urement (mass/volume)on 11-26-2021 Calcium [Mass/Vol] 8.8 mg/dL 8.5-10.1 [facility] Work Phone: [phone] Serum or plasma cholesterol in HDL measurement (mass/volume)on 11-26-2021 Cholesterol in HDL [Mass/Vol] 33 mg/dL >40 [facility] Work Phone: Comment on above: The drugs N-Acetylcy steine and Metamizole may falsely depress this assay. Reference Range HDL <40 mg/dL Low HDL Cholesterol HDL >or= 60 mg/dL High HDL Cholesterol Serum or plasma cholesterol in VLDL measurement (mass/volume)on 11-26-2021 Cholesterol in VLDL [Mass/Vol] 36 mg/dL 5-40 [facility] Work Phone: Serum or plasma creatinine m easurement (mass/volume)on 11-26-2021 Creatinine [Mass/Vol] 1.08 mg/dL 0.70-1.30 [facility] Work Phone: Comment on above: The validity of the calculated GFR & GFRAA in patients over 70 years has not been determined. Clinical correlation is essential. Serum or plasma low density lipoprotein (LDL) cholesterol measurement (mass/volume)on 11-26-2021 Cholesterol in LDL [Mass/Vol] 124 mg/dL 0-130 [facility] Work Phone: Serum or plasma urea nitroge n measurement (mass/volume)on 11-26-2021 Urea nitrogen [Mass/Vol] 19 mg/dL 7-18 [facility] Work Phone: Thin prep Papanicolaou smear with manual screeningon 11-26-2021 Thin prep Papanicolaou smear with manual screening 15 U/L 15-37 [facility] Work Phone: Thin prep Papanicolaou smear with manual screening 5 5-15 [facility] Work Phone: Thin prep Papanicolaou smear with manual screening 7.5 mg/L NO RANGE EST. [facility] Work Phone: Urine creatinine measurement (mass/volume)on 11-26-2021 Creatinine (U) [Mass/Vol] 157.00 mg/dL NO RANGE EST. [facility] Work Phone: .Auto Diffon 11-25-2019 Ammonia (P) [Mass/Vol] 0.80 10 3/mcL Normal 0.15-1.00 [facility] ([place]) Comment on above: Performed By: #### C BC, ADIFF, ANEU, CMP, GFR #### [address] [address] #### TROP #### [address] [address] Basophils (Bld) [#/Vol] 0.10 10 3/mcL Normal 0.00-0.19 [facility] ([place]) Comment on above: Performed By: #### C BC, ADIFF, ANEU, CMP, GFR #### [address] [address] #### TROP #### [address] [address] Basophils/100 WBC (Bld) 1.1 % Normal 0.0-2.5 [facility] ([place]) Comment on above: Performed By: #### C BC, ADIFF, ANEU, CMP, GFR #### [address] [address] #### TROP #### [address] [address] Eosinophils (Bld) [#/Vol] 0.40 10 3/mcL Normal 0.00-0. 40 [facility] ([place]) Comment on above: Performed By: #### C BC, ADIFF, ANEU, CMP, GFR #### [address] [address] #### TROP #### [address] [address] Eosinophils/100 WBC (Bld) 2.9 % Normal 0.0-7.0 [facility] ([place]) Comment on above: Performed By: #### C BC, ADIFF, ANEU, CMP, GFR #### [place] [address] #### TROP #### [address] [address] Lymphocytes (Bld) [#/Vol] 3.70 10 3/mcL Normal 0.77-3. 85 [facility] ([place]) Comment on above: Performed By: #### C BC, ADIFF, ANEU, CMP, GFR #### [address] [address] #### TROP #### [address] [address] Lymphocytes/100 WBC (Bld) 28.0 % Normal 10.0-50.0 [facility] ([place]) Comment on above: Performed By: #### C BC, ADIFF, ANEU, CMP, GFR #### [address] [address] #### TROP #### [address] [address] Monocytes/100 WBC (Bld) 6.0 % Normal 1.7-13.0 [facility] ([place]) Comment on above: Performed By: #### C BC, ADIFF, ANEU, CMP, GFR #### [address] [address] #### TROP #### [address] [address] Neutrophils/100 WBC (Bld) 62.0 % Normal 37.0-80.0 [facility] ([place]) Comment on above: Performed By: #### C BC, ADIFF, ANEU, CMP, GFR #### [place] [address] #### TROP #### [address] [address] .GFRon 11-25-2019 GFR Non- 66 ml/min/1.73sqm Normal [facility] ([place]) Comment on above: Result Comment: GFR Population [...] #### C BC, ADIFF, ANEU, CMP, GFR ####[address] [address]#### TROP ####[address] [address] GFR 80 ml/min/1.73sqm Normal [facility] ([place]) Comment on above: Result Comment: GFR Population [...] #### C BC, ADIFF, ANEU, CMP, GFR ####[place] [address]#### TROP ####[place] [address] .NEUABSon 11-25-2019 Neutrophils (Bld) [#/Vol] 8.30 10 3/mcL High 2.85-6. 16 [facility] ([place]) Comment on above: Performed By: #### C BC, ADIFF, ANEU, CMP, GFR #### [address] [address] #### TROP #### [place] [address] CBCon 11-25-2019 Erythrocyte distribution width (RBC) [Ratio] 14.1 % Normal 11.5-14.5 [facility] ([place]) Comment on above: Performed By: #### C BC, ADIFF, ANEU, CMP, GFR #### [place] [id number] #### TROP #### [place] [address] Hematocrit (Bld) [Volume fraction] 48.1 % Normal 42.0-52.0 [facility] ([place]) Comment on above: Performed By: #### C BC, ADIFF, ANEU, CMP, GFR #### [address] [address] #### TROP #### [address] [address] Hemoglobin (Bld) [Mass/Vol] 16.1 G/dL Normal 14.0-18.0 [facility] ([place]) Comment on above: Performed By: #### C BC, ADIFF, ANEU, CMP, GFR #### [place] [address] #### TROP #### [address] [address] MCH (RBC) [Entitic mass] 29.8 pg Normal 27.0-31.2 [facility] ([place]) Comment on above: Performed By: #### C BC, ADIFF, ANEU, CMP, GFR #### [place] [address] #### TROP #### [address] [address] MCHC (RBC) [Mass/Vol] 33.5 G/dL Normal 31.8-35.4 [facility] ([place]) Comment on above: Performed By: #### C BC, ADIFF, ANEU, CMP, GFR #### [place] [address] #### TROP #### [place] [address] MCV (RBC) [Entitic vol] 89.0 fL Normal 80.0-94.0 [facility] ([place]) Comment on above: Performed By: #### C BC, ADIFF, ANEU, CMP, GFR #### [place] [address] #### TROP #### [address] [address] Platelet mean volume (Bld) [Entitic vol] 8.0 fL Normal 7.4-10.4 [facility] ([place]) Comment on above: Performed By: #### C BC, ADIFF, ANEU, CMP, GFR #### [address] [address] #### TROP #### [address] [address] Platelets (Bld) [#/Vol] 208 10 3/mcL Normal 130-400 [facility] ([place]) Comment on above: Performed By: #### C BC, ADIFF, ANEU, CMP, GFR #### [address] [address] #### TROP #### [address] [address] RBC (Bld) [#/Vol] 5.41 10 6/mcL Normal 4.04-6.13 [facility] ([place]) Comment on above: Performed By: #### C BC, ADIFF, ANEU, CMP, GFR #### [address] [address] #### TROP #### [address] [address] WBC (Bld) [#/Vol] 13.30 10 3/mcL High 4.60-10.80 [facility] ([place]) Comment on above: Performed By: #### C BC, ADIFF, ANEU, CMP, GFR #### [address] [address] #### TROP #### [address] [address] CMPon 11-25-2019 Albumin [Mass/Vol] 3.6 G/dL Normal 3.5-5.0 [facility] ([place]) Comment on above: Performed By: #### C BC, ADIFF, ANEU, CMP, GFR ####[address] [address]#### TROP ####[address] [address] Albumin/Globulin [Mass ratio] 1.2 {ratio} Normal 1.1-2.5 [facility] ([place]) Comment on above: Performed By: #### C BC, ADIFF, ANEU, CMP, GFR ####[facility] [place] [id number]#### TROP ####[address] [address] ALP [Catalytic activity/Vol] 63 U/L Normal 40-135 [facility] ([place]) Comment on above: Performed By: #### C BC, ADIFF, ANEU, CMP, GFR ####[facility] [place], [place] [id number]#### TROP ####[address] [address] ALT [Catalytic activity/Vol] 27 U/L Normal 10-35 [facility] ([place]) Comment on above: Performed By: #### C BC, ADIFF, ANEU, CMP, GFR ####[place] [address] [place] [address]#### TROP ####[address] [address] AST [Catalytic activity/Vol] 19 U/L Normal 10-40 [facility] ([place]) Comment on above: Performed By: #### C BC, ADIFF, ANEU, CMP, GFR ####[place] [address]#### TROP ####[address] [address] Bili Total 0.3 mg/dL Normal 0.2-1.0 [facility] ([place]) Comment on above: Result Comment: Use of this assay is not recommended for patients undergoing treatment with eltrombopag due to the potential for falsely elevated results. Performed By: #### C BC, ADIFF, ANEU, CMP, GFR ####[place] [address] [place] [address]#### TROP ####[address] [address] Calcium [Mass/Vol] 8.2 mg/dL Low 8.4-10.2 [facility] ([place]) Comment on above: Performed By: #### C BC, ADIFF, ANEU, CMP, GFR ####[place] [id number]#### TROP ####[address] [address] Chloride [Moles/Vol] 97 mmol/L Low 98-107 [facility] ([place]) Comment on above: Performed By: #### C BC, ADIFF, ANEU, CMP, GFR ####[place] [address]#### TROP ####[place] [address] CO2 [Moles/Vol] 23 mmol/L Normal 22-29 [facility] ([place]) Comment on above: Performed By: #### C BC, ADIFF, ANEU, CMP, GFR ####[place] [address]#### TROP ####[place] [address] Creatinine [Mass/Vol] 1.20 mg/dL Normal 0.70-1.30 [facility] ([place]) Comment on above: Performed By: #### C BC, ADIFF, ANEU, CMP, GFR ####[place] [address]#### TROP ####[place] [address] Electrolyte Balance 12.0 mEq/L Normal [facility] ([place]) Comment on above: Performed By: #### C BC, ADIFF, ANEU, CMP, GFR ####[place] [address]#### TROP ####[place] [address] Globulin (S) [Mass/Vol] 3.1 G/dL Normal [facility] ([place]) Comment on above: Performed By: #### C BC, ADIFF, ANEU, CMP, GFR ####[place] [address] [place] [id number]#### TROP ####[place] [address] Glucose [Mass/Vol] 105 mg/dL Normal 70-105 [facility] ([place]) Comment on above: Performed By: #### C BC, ADIFF, ANEU, CMP, GFR ####[address] [address]#### TROP ####[address] [address] Potassium [Moles/Vol] 3.4 mmol/L Low 3.5-5.1 [facility] ([place]) Comment on above: Performed By: #### C BC, ADIFF, ANEU, CMP, GFR ####[place] [address]#### TROP ####[address] [address] Protein [Mass/Vol] 6.7 G/dL Normal 6.4-8.2 [facility] ([place]) Comment on above: Performed By: #### C BC, ADIFF, ANEU, CMP, GFR ####[place] [address]#### TROP ####[address] [address] Sodium [Moles/Vol] 132 mmol/L Low 136-145 [facility] ([place]) Comment on above: Performed By: #### C BC, ADIFF, ANEU, CMP, GFR ####[place] [id number]#### TROP ####[address] [address] Urea nitrogen [Mass/Vol] 13 mg/dL Normal 7-18 [facility] ([place]) Comment on above: Performed By: #### C BC, ADIFF, ANEU, CMP, GFR ####[address] [address]#### TROP ####[address] [address] Urea nitrogen/Creatinine [Mass ratio] 11 ratio Normal 7-27 [facility] ([place]) Comment on above: Performed By: #### C BC, ADIFF, ANEU, CMP, GFR ####[address] [place], [place] [address]#### TROP ####[address] [place] [address] ABD/PELVIS W/ IV CONTRAST ONLYon 11-25-2019 [...] 11/25/2019 12:02:57 AM Ordering Provider:Carlos Enrique Constantino [facility] ([place]) CT HEAD OR BRAIN W/O CONTRMICHAEL Ton 11-25-2019 CT HEAD OR BRAIN W/O [...] 11/24/2019 11:53:05 PM Ordering Provider:Carlos Enrique Constantino [facility] ([place]) CT MAXILLOFACIAL W/O CONTRAS [facility] 11-25-2019 CT MAXILLOFACIAL W/O CONTRAST ORIGINAL CT [...] 11/25/2019 1:49:36 AM Ordering Provider:Carlos Enrique Constantino [facility] ([place]) CT SPINE CERVICAL W/O SAURABH Ibarra 11-25-2019 [...] Date: 11/24/2019 11:50:05 PM Ordering Provider:Carlos Enrique Constantino Normal [facility]) TROPon 11-25-2019 Troponin I.cardiac [Mass/Vol] ng/mL Normal 0.000-0.040 [facility] ([place]) Comment on above: Result Comment: Trop onin I reference range: 0.00-0.040 ng/mL Negative and non-diagnostic. >0.040 ng/mL Consistent with cardiac damage, increased clinical risk and possibility of myocardial infarction. Serial measurements, a rise & fall in test results, clinical history, appropriate symptoms and/or ECG changes may help assess possibility of DE. *Other non-acute coronary syndrome conditions such as CHF, myocarditis, pulmonary emboli, sepsis and cardiac surgery could result in myocardial damage and increased troponin levels. Performed By: #### C BC, ADIFF, ANEU, CMP, GFR #### [facility] [address] [place], [place] [address] #### TROP #### [place] [address] XR CHEST 1 VIEWon 11-25-2019 XR CHEST [...] 11/24/2019 11:23:30 PM Ordering Provider:Carlos Enrique Constantino [facility]) XR PELVIS 1 OR 2 VIEWSon XR [...] 11/24/2019 11:24:17 PM Ordering Provider:Carlos Enrique Constantino [facility]) Vital Signs Date Time Vital Sign Value Performing Clinician Marito estrella 11-27-2021 19:23-0400 Diastolic blood pressure 88 mm[Hg] [facility] Work Phone: 11-27-2021 19:23-0400 Heart rate 91 /min [facility] Work Phone: 11-27-2021 19:23-0400 Respiratory rate 18 /min [facility] Work Phone: 11-27-2021 19:23-0400 SaO2% (BldA) [Mass fraction] 96 % [facility] Work Phone: 11-27-2021 19:23-0400 Systolic blood pressure 131 mm[Hg] [facility] Work Phone: 11-27-2021 16:34-0400 Body height 182.88 cm [facility] Work Phone: 11-27-2021 16:34-0400 Body mass index (BMI) [Ratio] 31 kg/m2 [facility] Work Phone: 11-27-2021 16:34-0400 Body temperature 98.5 [degF] [facility] Work Phone: 11-27-2021 16:34-0400 Body weight 103.87 kg [facility] Work Phone: Encounters Encounter Date Encounter Type Care Provider Facility Start: 10-11-2024 End: 10-11-[address] Manny Barber MD Work Phone: [facility] Work Phone: Start: 10-11-2024 End: 10-11-[address] Manny Barber MD -Laboratory [facility] Work Phone: Start: 10-11-2024 End: 10-11-2024 ambulatory Manny Barber Facility:[facility] Start: 10-09-2024 End: 10-09-[address] Manny Barber MD Work Phone: [facility] Work Phone: Start: 10-09-2024 End: 10-09-[address] Manny Barber MD -Laboratory [facility] Start: 10-09-2024 End: 10-09-2024 ambulatory Manny Barber Facility:[facility] Start: 08-29-2023 End: 08-29-[address] Manny Barber Work Phone: [facility] Work Phone: Start: 08-29-2023 End: 08-29-[address] Manny Barber Work Phone: [facility] Work Phone: Start: 07-28-2023 End: 07-28-[address] Manny Barber Work Phone: [facility] Work Phone: Start: 07-28-2023 End: 07-28-[address] Manny Barber Work Phone: [facility]-Physical Therapy Work Phone: Start: 06-10-2023 End: 06-10-[address] Manny Barber Work Phone: [facility] Work Phone: Start: 06-10-2023 End: 06-10-[address] [facility] Start: 05-10-2023 End: 05-10-[address] Manny Barber Work Phone: [facility] Work Phone: Start: 11-27-2021 End: 11-27-2021 Emergency department patient visit [facility]-Emergency Department Start: 11-27-2021 End: 11-27-2021 [facility] Start: 11-26-2021 End: 11-26-2021 Patient encounter procedure [facility] Procedures Date Procedure Procedure Detail Performing Clinician Start: 10-09-2024 Prostate specific an tigen measurement Dr. Manny Barber MD Work Phone: Comment on above: This test was perfor med using the [employer] tPSA method. Measured values of a patient sample can vary depending on the testing procedure used. PSA values determined on patient samples by different testing procedures cannot be used interchangeably. If there is a change in PSA assays while monitoring therapy, sequential testing should be performed to confirm baseline values. Start: 08-29-2023 MRI of lumbar spine Dr. Manny Barber Work Phone: Start: 06-10-2023 X-ray of lumbosacral spine Dr. Manny Barber Work Phone: Start: 11-27-2021 CT angiography of ch est with contrast Start: 11-27-2021 Plain chest X-ray Plan of Treatment Date Care Activity Detail Author Start: 11-27-2021 [facility] Work Phone: Patient Education ED Dyspnea [facility] Work Phone: Patient referral [facility] Work Phone: Payers Date Payer Category Payer Self-pay [id number] 2024 Unknown [id number] Unknown [id number] Unknown [id number] Social History Date Type Detail Facility Start: 11-27-2021 End: 05-10-2023 Tobacco smoking status NHIS Unknown if ever smoked [facility] Start: 1975 Sex Assigned At Male [facility] Start: 05-10-2023 Tobacco smoking stat us KSIS Smokes tobacco daily (finding) [facility] Discharge summary 08-01-2023 Note Date & Type Note Facility 08-01-2023 Discharge summary Note Date/Time August 01, 2023 6:37 pm [facility] Physical Therapy [facility] [address] [place] [address]. [address] [place] [address] / REHABILITATION SERVICES DISCHARGE SUMMARY MR#: [id number] Acct: [id number] Name: KHANG VAZ Rep #: [id number] : 1975 48 From: Shanna Wheeler PT, Cert. MDT Referring Dr.: Dr. Manny Barber MD Status: REG RCR Insurance: [employer] SELF PAY INSURANCE Discharge Summary D/C summary: [...] please feel free to call me at [phone]. Thank you for the referral of thispatient. Sincerely, Shanna Wheeler, PT, Cert MDT Balance/Gait/Functional tests Balance/Special Test Scores Oswestry Low Back Score: 19 Improvement % Improvement: 10 <Electronically signed by Shanna Wheeler PTSunny. MDT> 08/01/23 1837 CC: Dr. 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) acute [facility] Work Phone: Reason for referral (narrative) Note Date & Type Note Facility Reason for referral (narrative) No reason for referral information available [facility] Work Phone: Summary Purpose Family History No Family History Records FoundNo Family History Records Found Advance Directives No Advanced Directives Records Found Advance Directive Response Recorded Date/ Time Living Will No November 27, 2021 5:17pm Power of Promotional Representative No November 27 5:17pm Advance Directive Response Recorded Date/ Time Living Will No November 27, 2021 4:17pm Power of Promotional Representative No November 27 4:17pm Chief Complaint and [...] section and content) DATE CREATED AUTHOR 01/01/2020 [facility] ([place]) DATE CREATED AUTHOR AUTHOR'S ORGANIZ ATION 10/17/2024 [facility] Goals (unrecognized section and content) Goals [...] Provider, Referring P ana luisa Active Demario ARGUETA, PA Attending Provider Active Team Status: Inactive Member Role Status Dates Dr. Manny Barber MD Primary Care Provide r, Attending Provider, Referring Provider Active Team Status: Inactive Member Role Status Dates Dr. Manny Barber MD Primary Care Provider Active Start: October 09, 2024 End: October 09, 2024 Dr. Manny Barber MD Attending Provider Active St art: October 09, 2024 End: October 09, 2024 Dr. Manny Barber MD Referring Provider Active St art: October 09, 2024 End: October 09, 2024 Team Status: Active Member Role Status Dates Dr. Manny Barber MD Primary Care Provider Active Start: October 11, 2024 Dr. Manny Barber MD Attending Provider Active St art: October 11, 2024 Dr. Manny Barber MD Referring Provider Active St art: October 11, 2024 Team Status: Inactive Member Role Status Dates Dr. Manny Barber MD Primary Care Provider Active Start: October 11, 2024 End: October 11, 2024 Dr. Manny Barber MD Attending Provider Active St art: October 11, 2024 End: October 11, 2024 Dr. Manny Barber MD Referring Provider Active art: October 11, 2024 End: October 11, 2024 FOR RECORDS PERTAINING TO PATIENTS WHO ARE [...] BE BASED ON THE PRIMARY CLINICAL RECORDS. [facility] [employer] provides no warranty or guarantee of the accuracy or completeness of information in this document.
--- OUTSIDE RECORDS SUMMARY | 2025-02-20 18:22 | XMS RPT_ITS | CCD ---
Author Organization [facility] Care Team Providers Care Territory Development Manager Name Role Phone Dr. Manny Barber Primary Care Provider Dr. Manny Barber Referring Provider Micaela ARGUETA, PA Demario Tolliver Attending Provider [phone]. Manny Barber MD Primary Care Provider [phone] Manny Barber MD Attending Provider [phone] Dr. Manny Barber MD Referring Provider [phone] Manny Barber Attending Unavailable Manny Barber Referring [...] [Mass/Vol] 149.00 mg/dL Normal 39.00- 259.0 0 [facility] Comment on above: Performed By: #### L 502.0250 #### [facility] [address] [place], [place], [address] MALB:CREAT UNABLE TO CALCULATE Normal [facility] Comment on above: Performed By: #### L 502.0250 #### [facility] [address] [place], [place], [address] MICROALBUMIN,UR < 12.0 Normal NO RANGE EST. [facility] Comment on above: Performed By: #### L 502.0250 #### [facility] [address] [place], [place], [id number] Microalbumin/creat ratio urO rdered By: Manny Barber on 10-11-2024 Urine microalbumin/creatinine ratio measurement UNABLE TO CALCULATE mg/g CRE [facility] Random urine creatinine jason urement (mass/volume)Ordered By: Manny Barber on 10-11-2024 Creatinine Unsp time (U) [Mass/Vol] 149.00 mg/dL 39.00-259.0 0 [facility] Urine albumin measurement wi th detection limit of 20 mg/L or less (mass/volume)Ordered By: Manny Barber on 10-11-2024 Albumin DL <= 20 mg/L (U) [Mass/Vol] < 12.0 mg/L NO RANGE EST. [facility] Absolute lymphocyte countOrd ered By: Manny Barber on 10-09-2024 Lymphocytes Auto (Unsp spec) [#/Vol] 2.11 10*3/uL 0.83-4.51 [facility] Absolute neutrophil countOrd ered By: Manny Barber on 10-09-2024 Neutrophils (Bld) [#/Vol] 5.6 10*3/uL 2.0-7.7 [facility] Anion gap in Serum or Plasma Ordered By: Manny Barber on 10-09-2024 Anion gap [Moles/Vol] 11 mmol/L 5-15 [facility] Automated lymphocyte count a s percentage of total leukocytesOrdered By: Manny Barber on 10-09-2024 Lymphocytes/100 WBC Auto (Unsp spec) 24.2 % - [facility] BUN/creatinine ratioOrdered By: Manny Barber on 10-09-2024 Urea nitrogen/Creatinine [Mass ratio] 17.6 mg/mg 10-20 [facility] Basophil percentageOrdered B y: Manny Barber on 10-09-2024 Basophils/100 WBC (Bld) 0.6 % 0-1 [facility] Bilirubin, totalOrdered By: Manny Barber on 10-09-2024 Bilirubin [Mass/Vol] 0.40 mg/dL 0.00-1.30 [facility] CBC W/Diff, Automatedon 09-23 Absolute Lymph 2.11 X10 3/uL Normal 0.83-4.51 [facility] Comment on above: Performed By: #### L 100.0100, L500.4050, L500.4100, L501.9910 #### [facility] [address] [place], [address] Absolute Neut 5.6 X10 3/uL Normal 2.0-7.7 [facility] Comment on above: Performed By: #### L 100.0100, L500.4050, L500.4100, L501.9910 #### [facility] [address] [place], [address] Basophils/100 WBC (Bld) 0.6 % Normal 0-1 [facility] Comment on above: Performed By: #### L 100.0100, L500.4050, L500.4100, L501.9910 #### [facility] [address] [place], [address] Eosinophils/100 WBC (Bld) 3.6 % Normal 0-5 [facility] Comment on above: Performed By: #### L 100.0100, L500.4050, L500.4100, L501.9910 #### [facility] [address] [place], [address] Erythrocyte distribution width (RBC) [Ratio] 13.8 % Normal 11.6-14.6 [facility] Comment on above: Performed By: #### L 100.0100, L500.4050, L500.4100, L501.9910 #### [facility] [address] [place], [address] Hematocrit (Bld) [Volume fraction] 46.7 % Normal 40-54 [facility] Comment on above: Performed By: #### L 100.0100, L500.4050, L500.4100, L501.9910 #### [facility] [address] [place], [address] Hemoglobin (Bld) [Mass/Vol] 15.7 g/dL Normal 13.0-16.5 [facility] Comment on above: Performed By: #### L 100.0100, L500.4050, L500.4100, L501.9910 #### [facility] [address] [place], [address] IG% 0.500 Normal 0.0-0.9 [facility] Comment on above: Result Comment: IG% - Immature Granulocytes (promyelocytes, myelocytes and metamyelocytes) > 1% indicates that a LEFT SHIFT is Present. Performed By: #### L 100.0100, L500.4050, L500.4100, L501.9910 #### [facility] [address] [place], [address] Lymphocytes/100 WBC (Bld) 24.2 % Normal 19-41 [facility] Comment on above: Performed By: #### L 100.0100, L500.4050, L500.4100, L501.9910 #### [facility] [address] [place], [address] MCH (RBC) [Entitic mass] 29.7 pg Normal 27.0-32.0 [facility] Comment on above: Performed By: #### L 100.0100, L500.4050, L500.4100, L501.9910 #### [facility] [address] [place], [address] MCHC (RBC) [Mass/Vol] 33.6 g/dL Normal 32-36 [facility] Comment on above: Performed By: #### L 100.0100, L500.4050, L500.4100, L501.9910 #### [facility] [address] [place], [address] MCV (RBC) [Entitic vol] 88.3 fL Normal 80-94 [facility] Comment on above: Performed By: #### L 100.0100, L500.4050, L500.4100, L501.9910 #### [facility] [address] [place], [address] Monocytes/100 WBC (Bld) 7.3 % Normal 0-10 [facility] Comment on above: Performed By: #### L 100.0100, L500.4050, L500.4100, L501.9910 #### [facility] [address] [place], [address] Neutrophils/100 WBC (Bld) 63.8 % Normal 47-70 [facility] Comment on above: Performed By: #### L 100.0100, L500.4050, L500.4100, L501.9910 #### [facility] [address] [place], [address] Nucleated RBC (Bld) [#/Vol] 0 10*3/uL Normal 0-5 [facility] Comment on above: Performed By: #### L 100.0100, L500.4050, L500.4100, L501.9910 #### [facility] [address] [place], [address] Platelet mean volume (Bld) [Entitic vol] 10.9 fL Normal 6.2-12.0 [facility] Comment on above: Performed By: #### L 100.0100, L500.4050, L500.4100, L501.9910 #### [facility] [address] [place], [address] Platelets (Bld) [#/Vol] 244 10*3/uL Normal 150-450 [facility] Comment on above: Performed By: #### L 100.0100, L500.4050, L500.4100, L501.9910 #### [facility] [address] [place], [address] RBC (Bld) [#/Vol] 5.29 10*6/uL Normal 4.6-6.2 [facility] Comment on above: Performed By: #### L 100.0100, L500.4050, L500.4100, L501.9910 #### [facility] [address] [place], [address] RDW SD 44.3 fl High 35.1-43.9 [facility] Comment on above: Performed By: #### L 100.0100, L500.4050, L500.4100, L501.9910 #### [facility] [address] [place], [address] WBC (Bld) [#/Vol] 8.7 10*3/uL Normal 4.4-11.0 [facility] Comment on above: Performed By: #### L 100.0100, L500.4050, L500.4100, L501.9910 #### [facility] [address] [place], [address] Calculated very low density lipoprotein (VLDL) cholesterol measurementOrdered By: Manny Barber on 10-09-2024 Calculated very low density lipoprotein (VLDL) cholesterol measurement 25 mg/dL 5-40 [facility] Carbon dioxide, total [Moles /volume] in Central venous bloodOrdered By: Manny Barber on 10-09-2024 CO2 [Moles/Vol] 23.3 mmol/L 21.0-32.0 [facility] Chloride assayOrdered By: Geoff Barber on 10-09-2024 Chloride [Moles/Vol] 107 mmol/L 98-108 [facility] Comprehensive Metabolic Prof ilon 10-09-2024 Albumin [Mass/Vol] 4.3 g/dL Normal 3.5-5.0 [facility] Comment on above: Performed By: #### L 100.0100, L500.4050, L500.4100, L501.9910 #### [facility] [address] [place], [address] Albumin/Globulin [Mass ratio] 1.5 {ratio} Normal 0.9-2.4 [facility] Comment on above: Performed By: #### L 100.0100, L500.4050, L500.4100, L501.9910 #### [facility] [address] [place], [address] ALK PHOS 62 U/L Normal 40-129 [facility] Comment on above: Performed By: #### L 100.0100, L500.4050, L500.4100, L501.9910 #### [facility] [address] [place], [address] ALT [Catalytic activity/Vol] 21 U/L Normal <=46 [facility] Comment on above: Performed By: #### L 100.0100, L500.4050, L500.4100, L501.9910 #### [facility] [address] [place], [address] AST [Catalytic activity/Vol] 19 U/L Normal <=37 [facility] Comment on above: Performed By: #### L 100.0100, L500.4050, L500.4100, L501.9910 #### [facility] [address] [place], [address] Bilirubin [Mass/Vol] 0.40 mg/dL Normal 0.00-1.30 [facility] Comment on above: Performed By: #### L 100.0100, L500.4050, L500.4100, L501.9910 #### [facility] [address] [place], [address] BUN/CRE 17.6 RATIO Normal 10-20 [facility] Comment on above: Performed By: #### L 100.0100, L500.4050, L500.4100, L501.9910 #### [facility] [address] [place], [address] Calcium [Mass/Vol] 9.2 mg/dL Normal 7.6-11.0 [facility] Comment on above: Performed By: #### L 100.0100, L500.4050, L500.4100, L501.9910 #### [facility] [address] [place], [address] Chloride [Moles/Vol] 107 mmol/L Normal 98-108 [facility] Comment on above: Performed By: #### L 100.0100, L500.4050, L500.4100, L501.9910 #### [facility] [address] [place], [address] CO2 [Moles/Vol] 23.3 mmol/L Normal 21.0-32.0 [facility] Comment on above: Performed By: #### L 100.0100, L500.4050, L500.4100, L501.9910 #### [facility] [address] [place], [address] Creatinine [Mass/Vol] 0.99 mg/dL Normal 0.70-1.20 [facility] Comment on above: Performed By: #### L 100.0100, L500.4050, L500.4100, L501.9910 #### [facility] [address] [place], [address] GAP 11 Normal 5-15 [facility] Comment on above: Performed By: #### L 100.0100, L500.4050, L500.4100, L501.9910 #### [facility] [address] [place], [address] GFR/1.73 sq M.predicted among non-blacks MDRD (S/P/Bld) [Vol rate/Area] 94 mL/min/{1.73_m2} Normal >60 [facility] Comment on above: Result Comment: mL/m in/1.73m2 CKD-EPI Creatinine Equation (2020) Performed By: #### L 100.0100, L500.4050, L500.4100, L501.9910 #### [facility] [address] [place], [address] Globulin (S) [Mass/Vol] 2.8 g/dL Normal 2.2-4.2 [facility] Comment on above: Performed By: #### L 100.0100, L500.4050, L500.4100, L501.9910 #### [facility] [address] [place], [address] Glucose [Mass/Vol] 93 mg/dL Normal 70-99 [facility] Comment on above: Performed By: #### L 100.0100, L500.4050, L500.4100, L501.9910 #### [facility] [address] [place], [address] Potassium [Moles/Vol] 4.2 mmol/L Normal 3.3-5.1 [facility] Comment on above: Performed By: #### L 100.0100, L500.4050, L500.4100, L501.9910 #### [facility] [address] [place], [address] Sodium [Moles/Vol] 141 mmol/L Normal 133-145 [facility] Comment on above: Performed By: #### L 100.0100, L500.4050, L500.4100, L501.9910 #### [facility] [address] [place], [address] T PROT 7.1 g/dL Normal 5.9-8.4 [facility] Comment on above: Performed By: #### L 100.0100, L500.4050, L500.4100, L501.9910 #### [facility] [address] [place], [address] Urea nitrogen [Mass/Vol] 17 mg/dL Normal 4-19 [facility] Comment on above: Performed By: #### L 100.0100, L500.4050, L500.4100, L501.9910 #### [facility] [address] [place], [address] Eosinophil percentageOrdered By: Manny Barber on 10-09-2024 Eosinophils/100 WBC (Bld) 3.6 % 0-5 [facility] Erythrocyte distribution wid th ratioOrdered By: Manny Barber on 10-09-2024 Erythrocyte distribution width (RBC) [Ratio] 13.8 % 11.6-14.6 [facility] Erythrocyte distribution wid th standard deviationOrdered By: Manny Barber on 10-09-2024 Erythrocyte distribution width (RBC) [Ratio] 44.3 fl High 35.1-43.9 [facility] Glomerular filtration rate ( GFR) estimation/1.73 sq m using serum, plasma, or whole bOrdered By: Manny Barber on 10-09-2024 GFR/1.73 sq M.predicted among non-blacks MDRD (S/P/Bld) [Vol rate/Area] 94 mL/min/{1.73_m2} >60 [facility] Comment on above: mL/min/1.73m2 CKD-EP I Creatinine Equation (2020) Hematocrit Auto (Bld) [Volum e fraction]Ordered By: Manny Barber on 10-09-2024 Hematocrit (Bld) [Volume fraction] 46.7 % 40-54 [facility] Hemoglobin measurementOrdere d By: Manny Barber on 10-09-2024 Hemoglobin (Bld) [Mass/Vol] 15.7 g/dL 13.0-16.5 [facility] Immature granulocytes/100 WB C Auto (Bld)Ordered By: Manny Barber on 10-09-2024 Immature granulocytes/100 WBC (Bld) 0.500 % 0.0-0.9 [facility] Comment on above: IG% - Immature Granu locytes (promyelocytes, myelocytes and metamyelocytes) > 1% indicates that a LEFT SHIFT is Present. LDL calc ser/plasOrdered By: Manny Barber on 10-09-2024 Cholesterol in LDL [Mass/Vol] 156 mg/dL [facility] Comment on above: Velvlpwayw=511-443 m g/dL & Higher Ukkh=422 mg/dL or greater Laboratory - Chemistry and C hemistry - challengeOrdered By: Manny Barber on 10-09-2024 AST [Catalytic activity/Vol] 19 U/L <38 [facility] Lipid Profileon 10-09-2024 CHOL:HDL 5.84 Normal [facility] Comment on above: Performed By: #### L 100.0100, L500.4050, L500.4100, L501.9910 #### [facility] [address] [facility] [address] Cholesterol [Mass/Vol] 219 mg/dL High <=200 [facility] Comment on above: Result Comment: Chol esterol level, Desirable <200 mg/dL Borderline high cholesterol 200-239 mg/dL High cholesterol >=240 mg/dL Recommendations of the NCEP Adult Treatment Panel for the following risk-cutoff thresholds for the [place] population. Performed By: #### L 100.0100, L500.4050, L500.4100, L501.9910 #### [facility] [address] [place], [address] Cholesterol in HDL [Mass/Vol] 38 mg/dL Low [facility] Comment on above: Result Comment: Eleanor onal Cholesterol Education Program (NCEP) guidelines: <40 mg/dL: Low HDL-cholesterol (major risk factor for CHD) >= 60 mg/dL: High HDL-cholesterol (negative risk factor for CHD) HDL-cholesterol is affected by a number of factors, e.g. smoking, exercise, hormones, sex and age. Performed By: #### L 100.0100, L500.4050, L500.4100, L501.9910 #### [facility] [address] [place], [address] Cholesterol in LDL [Mass/Vol] 156 mg/dL Normal [facility] Comment on above: Result Comment: Bord anrgqi=711-538 mg/dL Higher Lxwd=110 mg/dL or greater Performed By: #### L 100.0100, L500.4050, L500.4100, L501.9910 #### [facility] [address] [place], [address] Cholesterol in VLDL [Mass/Vol] 25 mg/dL Normal 5-40 [facility] Comment on above: Performed By: #### L 100.0100, L500.4050, L500.4100, L501.9910 #### [facility] [address] [place], [address] Triglyceride [Mass/Vol] 126 mg/dL Normal [facility] Comment on above: Result Comment: The drugs N-Acetylcysteine and Metamizole may falsely depress this assay. Normal range: <150 mg/dL Borderline High: 150-199 mg/dL High: 200-499 mg/dL Very High: >500 mg/dL Performed By: #### L 100.0100, L500.4050, L500.4100, L501.9910 #### [facility] [address] [place], [address] MCV (mean corpuscular volume ) determinationOrdered By: Manny Barber on 10-09-2024 MCV (RBC) [Entitic vol] 88.3 fL 80-94 [facility] Mean corpuscular hemoglobin (MCH) determinationOrdered By: Manny Barber on 10-09-2024 MCH (RBC) [Entitic mass] 29.7 pg 27.0-32.0 [facility] Mean corpuscular hemoglobin concentration (MCHC) determinationOrdered By: Manny Barber on 10-09-2024 MCHC (RBC) [Mass/Vol] 33.6 g/dL 32-36 [facility] Mean platelet volume determi nationOrdered By: Manny Barber on 10-09-2024 Platelet mean volume (Bld) [Entitic vol] 10.9 fL 6.2-12.0 [facility] Monocyte percentageOrdered B y: Manny Barber on 10-09-2024 Monocytes/100 WBC (Bld) 7.3 % 0-10 [facility] Neutrophil percentageOrdered By: Manny Barber on 10-09-2024 Neutrophils/100 WBC (Bld) 63.8 % 47-70 [facility] Nucleated red blood cell per centageOrdered By: Manny Barber on 10-09-2024 Nucleated RBC/100 WBC (Bld) [Ratio] 0 % 0-5 [facility] PSA,Total - Annual Screenon 10-09-2024 PSA,TOT SCREEN 1.13 ng/mL Normal 0.02-4.00 [facility] Comment on above: Result Comment: This test [...] #### L 100.0100, L500.4050, L500.4100, L501.9910 #### [facility] [address] [place], [address] Platelet countOrdered By: Geoff Barber on 10-09-2024 Platelets (Bld) [#/Vol] 244 10*3/uL 150-450 [facility] Potassium measurement (mass/ volume)Ordered By: Manny Barber on 10-09-2024 Potassium (Unsp spec) [Mass/Vol] 4.2 mmol/L 3.3-5.1 [facility] RBC Auto (Bld) [#/Vol]Ordere d By: Manny Barber on 10-09-2024 RBC (Bld) [#/Vol] 5.29 10*6/uL 4.6-6.2 [facility] Screening total cholesterol/ high density lipoprotein (HDL) cholesterol ratioOrdered By: Manny Barber on 10-09-2024 Cholesterol.total/Cholest jaylon in HDL [Mass ratio] 5.84 {ratio} [facility] Serum creatinine measurement (mass/volume)Ordered By: Manny Barber on 10-09-2024 Creatinine [Mass/Vol] 0.99 mg/dL 0.70-1.20 [facility] Serum globulin measurementOr dered By: Manny Barber on 10-09-2024 Globulin (S) [Mass/Vol] 2.8 g/dL 2.2-4.2 [facility] Serum glucose measurement (m ass/volume)Ordered By: Manny Barber on 10-09-2024 Glucose [Mass/Vol] 93 mg/dL 70-99 [facility] Serum or plasma alanine irene otransferase (ALT) measurementOrdered By: Manny Barber on 10-09-2024 ALT [Catalytic activity/Vol] 21 U/L <47 [facility] Serum or plasma albumin jason urement (mass/volume)Ordered By: Manny Barber on 10-09-2024 Albumin [Mass/Vol] 4.3 g/dL 3.5-5.0 [facility] Serum or plasma albumin/glob ulin mass ratioOrdered By: Manny Barber on 10-09-2024 Albumin/Globulin [Mass ratio] 1.5 {ratio} 0.9-2.4 [facility] Serum or plasma alkaline sawyer sphatase measurementOrdered By: Manny Barber on 10-09-2024 ALP [Catalytic activity/Vol] 62 U/L 40-129 [facility] Serum or plasma calcium jason urement (mass/volume)Ordered By: Manny Barber on 10-09-2024 Calcium [Mass/Vol] 9.2 mg/dL 7.6-11.0 [facility] Serum or plasma cholesterol in HDL measurement (mass/volume)Ordered By: Manny Barber on 10-09-2024 Cholesterol in HDL [Mass/Vol] 38 mg/dL Low >40 [facility] Comment on above: National Cholesterol Education Program (NCEP) guidelines:<40 mg/dL: Low HDL-cholesterol (major risk factor for CHD)>= 60 mg/dL: High HDL-cholesterol (negative risk factor for CHD)HDL-cholesterol is affected by a number of factors, e.g. smoking, exercise, hormones, sex and age. Serum or plasma cholesterol measurement (mass/volume)Ordered By: Manny Barber on 10-09-2024 Cholesterol [Mass/Vol] 219 mg/dL High <201 [facility] Comment on above: Cholesterol level, D esirable <200 mg/dLBorderline high cholesterol 200-239 mg/dLHigh cholesterol >=240 mg/dLRecommendations of the NCEP Adult Treatment Panel for the following risk-cutoff thresholds for the [place] population. Serum or plasma urea nitroge n measurement (mass/volume)Ordered By: Manny Barber on 10-09-2024 Urea nitrogen [Mass/Vol] 17 mg/dL 4-19 [facility] Sodium levelOrdered By: Manny Barber on 10-09-2024 Sodium [Moles/Vol] 141 mmol/L 133-145 [facility] Total proteinOrdered By: Gabby Barber on 10-09-2024 Protein [Mass/Vol] 7.1 g/dL 5.9-8.4 [facility] Triglycerides measurementOrd ered By: Manny Barber on 10-09-2024 Triglyceride [Mass/Vol] 126 mg/dL <199 [facility] Comment on above: The drugs N-Acetylcy steine and Metamizole may falsely depress this assay. Normal range: <150 mg/dLBorderline High: 150-199 mg/dLHigh: 200-499 mg/dLVery High: >500 mg/dL White blood cell (WBC) count Ordered By: Manny Barber on 10-09-2024 WBC (Bld) [#/Vol] 8.7 10*3/uL 4.4-11.0 [facility] Albumin Elph [Mass/Vol]Order ed By: Manny Barber on 06-10-2023 Albumin [Mass/Vol] 3.6 g/dL 2.9-4.4 [facility] Basophil percentageOrdered B y: Manny Barber on 06-10-2023 Bilirubin [Mass/Vol] 0.40 mg/dL 0.20-1.00 [facility] Comment on above: For patients on eltr ombopag therapy, use of Dimension [place] TBIL is not recommended. Chloride [Moles/Vol] 111 mmol/L 98-107 [facility] Glucose [Mass/Vol] 96 mg/dL 74-106 [facility] Hemoglobin (Bld) [Mass/Vol] 16.2 g/dL 13.0-16.5 [facility] Potassium [Moles/Vol] 4.4 mmol/L 3.5-5.1 [facility] Protein [Mass/Vol] 7.5 g/dL 6.4-8.2 [facility] Sodium [Moles/Vol] 142 mmol/L 136-145 [facility] WBC (Bld) [#/Vol] 9.3 10*3/uL 4.4-11.0 [facility] Determination of erythrocyte mean corpuscular volume (MCV)Ordered By: Manny Barber on 06-10-2023 MCV (RBC) [Entitic vol] 90.6 fL 80-94 [facility] Erythrocyte distribution wid th ratioOrdered By: Manny Barber on 06-10-2023 Erythrocyte distribution width (RBC) [Ratio] 13.8 % 11.6-14.6 [facility] Erythrocyte distribution wid th standard deviationOrdered By: Manny Barber on 06-10-2023 Erythrocyte distribution width (RBC) [Entitic vol] 46.0 fL 35.1-43.9 [facility] Hematocrit Auto (Bld) [Volum e fraction]Ordered By: Manny Barber on 06-10-2023 Hematocrit (Bld) [Volume fraction] 50.0 % 40-54 [facility] - Chemistry and C hemistry - challengeOrdered By: Manny Barber on 06-10-2023 Albumin/Globulin [Mass ratio] 1.0 {ratio} 0.9-2.4 [facility] ALP [Catalytic activity/Vol] 65 U/L 45-117 [facility] ALT [Catalytic activity/Vol] 28 U/L 16-61 [facility] CO2 [Moles/Vol] 26.0 mmol/L 21.0-32.0 [facility] Globulin (S) [Mass/Vol] 3.8 g/dL 2.2-4.2 [facility] Urea nitrogen/Creatinine [Mass ratio] 18.1 mg/mg 10-20 [facility] - Hematology and Cell countsOrdered By: Manny Barber on 06-10-2023 MCH (RBC) [Entitic mass] 29.3 pg 27.0-32.0 [facility] MCHC (RBC) [Mass/Vol] 32.4 g/dL 32-36 [facility] Platelet mean volume (Bld) [Entitic vol] 10.3 fL 6.2-12.0 [facility] Platelets (Bld) [#/Vol] 244 10*3/uL 150-450 [facility] No Panel InformationOrdered By: Manny Barber on 06-10-2023 Addendum Document Comment . [facility] Comment on above: The SPE pattern appe ars unremarkable. Evidence ofmonoclonal protein is not apparent.Performed at: [facility] [address] [id number] Director: Travis Hinojosa PhD, Phone: [phone] [id number] 0.3 g/dL 0.0-0.4 [facility] [id number] 0.9 g/dL 0.4-1.0 [facility] Estimated GFR (MDRD) Amer 97 mL/min >60 [facility] Comment on above: GFR Calc Estimated GFR (MDRD) Non-Af Amer 80 mL/min >60 [facility] Comment on above: Non- GFR Calc Gamma Globulins 1.0 g/dL 0.4-1.8 [facility] Prostate Specific Antigen Screen 1.10 ng/mL 0.00-4.00 [facility] Comment on above: This test was perfor med using the TPSA assay method [facility]. Values obtained with differentassay methods cannot be used interchangably.When changing PSA assays in the course of monitoring apatient, additional sequential testing should be carriedout to confirm baseline values. Urine Microalbumin/Creatinine Ratio 4.9 mg/g CRE <30 [facility] Protein Fractions Elph [Inte rp]Ordered By: Manny Barber on 06-10-2023 Protein Fractions [Interp] Comment . [facility] Comment on above: Protein electrophore sis scan will follow via computer,mail, or shop fitter delivery. RBC Auto (Bld) [#/Vol]Ordere d By: Manny Barber on 06-10-2023 RBC (Bld) [#/Vol] 5.52 10*6/uL 4.6-6.2 [facility] Serum albumin to globulin ra yoli by protein electrophoresisOrdered By: Manny Barber on 06-10-2023 Albumin/Globulin Elph [Mass ratio] 1.1 0.7-1.7 [facility] Serum globulin measurement ( mass/volume)Ordered By: Manny Barber on 06-10-2023 Globulin (S) [Mass/Vol] 3.3 g/dL 2.2-3.9 [facility] Serum or plasma beta globuli n measurement by electrophoresis (mass/volume)Ordered By: Manny Barber on 06-10-2023 Beta globulin Elph [Mass/Vol] 1.0 g/dL 0.7-1.3 [facility] Serum or plasma calcium jason urement (mass/volume)Ordered By: Manny Barber on 06-10-2023 Calcium [Mass/Vol] 9.4 mg/dL 8.5-10.1 [facility] Serum or plasma creatinine m easurement (mass/volume)Ordered By: Manny Barber on 06-10-2023 Creatinine [Mass/Vol] 1.05 mg/dL 0.70-1.30 [facility] Comment on above: The validity of the calculated GFR & GFRAA in patients over 70 years has not been determined. Clinical correlation is essential. Serum or plasma protein mono clonal measurement by electrophoresis (mass/volume)Ordered By: Manny Barber on 06-10-2023 Protein.monoclonal Elph [Mass/Vol] Not Observed g/dL Not Observed [facility] Serum or plasma urea nitroge n measurement (mass/volume)Ordered By: Manny Barber on 06-10-2023 Urea nitrogen [Mass/Vol] 19 mg/dL 7-18 [facility] Thin prep Papanicolaou smear with manual screeningOrdered By: Manny Barber on 06-10-2023 Thin prep Papanicolaou smear with manual screening 3.7 g/dL 3.2-5.0 [facility] Thin prep Papanicolaou smear with manual screening 24 U/L 15-37 [facility] Thin prep Papanicolaou smear with manual screening 5 5-15 [facility] Thin prep Papanicolaou smear with manual screening 5.8 mg/L NO RANGE EST. [facility] Total protein bloodOrdered B y: Manny aBrber on 06-10-2023 Protein [Mass/Vol] 6.9 g/dL 6.0-8.5 [facility] Urine creatinine measurement (mass/volume)Ordered By: Manny Barber on 06-10-2023 Creatinine (U) [Mass/Vol] 118.00 mg/dL NO RANGE EST. [facility] Absolute lymphocyte counton 11-27-2021 Lymphocytes Auto (Unsp spec) [#/Vol] 2.10 10*3/uL 0.83-4.51 [facility] Work Phone: Basophil percentageon 2021 Basophils/100 WBC (Bld) 0.6 % 0-1 [facility] Work Phone: Bilirubin [Mass/Vol] 0.50 mg/dL 0.20-1.00 [facility] Work Phone: Comment on above: For patients on eltr ombopag therapy, use of Dimension [place] TBIL is not recommended. Chloride [Moles/Vol] 109 mmol/L 98-107 [facility] Work Phone: Eosinophils/100 WBC (Bld) 1.1 % 0-5 [facility] Work Phone: Glucose [Mass/Vol] 108 mg/dL 74-106 [facility] Work Phone: Comment on above: Fasting Glucose resu lt from 100 to 125 mg/dL suggests IMPAIRED HOMEOSTASIS per A.D.A. criteria. Neutrophils (Bld) [#/Vol] 7.5 10*3/uL 2.0-7.7 [facility] Work Phone: Neutrophils/100 WBC (Bld) 69.4 % 47-70 [facility] Work Phone: Potassium [Moles/Vol] 3.9 mmol/L 3.5-5.1 [facility] Work Phone: Protein [Mass/Vol] 7.1 g/dL 6.4-8.2 [facility] Work Phone: Sodium [Moles/Vol] 140 mmol/L 136-145 [facility] Work Phone: [phone] WBC (Bld) [#/Vol] 10.7 10*3/uL 4.4-11.0 [facility] Work Phone: Blood erythrocytes count (nu mber/volume)on 11-27-2021 RBC (Bld) [#/Vol] 4.98 10*6/uL 4.6-6.2 [facility] Work Phone: Blood hemoglobin measurement (mass/volume)on 11-27-2021 Hemoglobin (Bld) [Mass/Vol] 15.1 g/dL 13.0-16.5 [facility] Work Phone: [phone] Blood lymphocytes/100 leukoc yteson 11-27-2021 Lymphocytes/100 WBC (Bld) 19.6 % 19-41 [facility] Work Phone: [phone] Blood monocytes/100 leukocyt eson 11-27-2021 Monocytes/100 WBC (Bld) 8.7 % 0-10 [facility] Work Phone: [phone] Blood platelet mean volumeon 11-27-2021 Platelet mean volume (Bld) [Entitic vol] 10.1 fL 6.2-12.0 [facility] Work Phone: [phone] Determination of erythrocyte mean corpuscular volume (MCV)on 11-27-2021 MCV (RBC) [Entitic vol] 88.8 fL 80-94 [facility] Work Phone: Hematocrit Auto (Bld) [Volum e fraction]on 11-27-2021 Hematocrit (Bld) [Volume fraction] 44.2 % 40-54 [facility] Work Phone: Laboratory - Chemistry and C hemistry - challengeon 11-27-2021 ALP [Catalytic activity/Vol] 75 U/L 45-117 [facility] Work Phone: ALT [Catalytic activity/Vol] 27 U/L 16-61 [facility] Work Phone: [phone] CO2 [Moles/Vol] 27.0 mmol/L 21.0-32.0 [facility] Work Phone: [phone] Globulin (S) [Mass/Vol] 4.0 g/dL 2.2-4.2 [facility] Work Phone: [phone] Urea nitrogen/Creatinine [Mass ratio] 11.7 mg/mg 10-20 [facility] Work Phone: [phone] Laboratory - Hematology and Cell countson 11-27-2021 Erythrocyte distribution width (RBC) [Entitic vol] 43.1 fL 35.1-43.9 [facility] Work Phone: [phone] Erythrocyte distribution width (RBC) [Ratio] 13.2 % 11.6-14.6 [facility] Work Phone: [phone] Immature granulocytes/100 WBC (Bld) 0.600 % 0.0-0.9 [facility] Work Phone: [phone] Comment on above: IG% - Immature Granu locytes (promyelocytes, myelocytes and metamyelocytes) > 1% indicates that a LEFT SHIFT is Present. MCH (RBC) [Entitic mass] 30.3 pg 27.0-32.0 [facility] Work Phone: [phone] Nucleated RBC/100 WBC (Bld) [Ratio] 0 % 0-5 [facility] Work Phone: [phone] MCHC Auto (RBC) [Mass/Vol]on 11-27-2021 MCHC (RBC) [Mass/Vol] 34.2 g/dL 32-36 [facility] Work Phone: No Panel Informationon 11-27 Estimated Creatinine Clearance Calc 91.27 ml/min [facility] Work Phone: [phone] Estimated GFR (MDRD) Amer 91 mL/min >60 [facility] Work Phone: [phone] Comment on above: GFR Calc Estimated GFR (MDRD) Non-Af Amer 76 mL/min >60 [facility] Work Phone: Comment on above: Non- GFR Calc Troponin I High Sensitivity 4 pg/mL 3.0-78.0 [facility] Work Phone: Comment on above: Please Note: New Bharati t Units and Gender Specific Reference Ranges. For more information see Policy Stat Procedure [place] High Sensitivity Troponin (TNIH) and attachments. D-Dimer Quantitative (PE/DVT) 1.78 FEU/ug/m 0.27-0.49 [facility] Work Phone: Comment on above: D-Dimer ELEVATED (>0 .49): Additional studies and clinicalassessments are indicated to conclude diagnosis of:Deep Vein Thrombosis (DVT) or Pulmonary Embolism (PE)CRITICAL VALUE VERIFIED. [facility]IM STEV[facility]/27/21 1523 Red Davies.RESULTS READ BACK BY SAME. Platelets bldon 11-27-2021 Platelets (Bld) [#/Vol] 378 10*3/uL 150-450 [facility] Work Phone: Serum or plasma albumin jason urement (mass/volume)on 11-27-2021 Albumin [Mass/Vol] 3.1 g/dL 3.2-5.0 [facility] Work Phone: Serum or plasma albumin/glob ulin mass ratioon 11-27-2021 Albumin/Globulin [Mass ratio] 0.8 {ratio} 0.9-2.4 [facility] Work Phone: Serum or plasma calcium jason urement (mass/volume)on 11-27-2021 Calcium [Mass/Vol] 8.8 mg/dL 8.5-10.1 [facility] Work Phone: Serum or plasma creatinine m easurement (mass/volume)on 11-27-2021 Creatinine [Mass/Vol] 1.11 mg/dL 0.70-1.30 [facility] Work Phone: Comment on above: The validity of the calculated GFR & GFRAA in patients over 70 years has not been determined. Clinical correlation is essential. Serum or plasma urea nitroge n measurement (mass/volume)on 08-05-2022 Urea nitrogen [Mass/Vol] 13 mg/dL 7-18 [facility] Work Phone: Thin prep Papanicolaou smear with manual screeningon 11-27-2021 Thin prep Papanicolaou smear with manual screening 19 U/L 15-37 [facility] Work Phone: Thin prep Papanicolaou smear with manual screening 4 5-15 [facility] Work Phone: Absolute lymphocyte counton 11-26-2021 Lymphocytes Auto (Unsp spec) [#/Vol] 1.38 10*3/uL 0.83-4.51 [facility] Work Phone: Basophil percentageon 2021 Basophils/100 WBC (Bld) 0.4 % 0-1 [facility] Work Phone: Bilirubin [Mass/Vol] 0.40 mg/dL 0.20-1.00 [facility] Work Phone: Comment on above: For patients on eltr ombopag therapy, use of Dimension [place] TBIL is not recommended. Chloride [Moles/Vol] 108 mmol/L 98-107 [facility] Work Phone: Cholesterol [Mass/Vol] 193 mg/dL <200 [facility] Work Phone: Comment on above: <200 mg/dL Desirable 200-240 mg/dL Borderline >240 mg/dL High Risk Eosinophils/100 WBC (Bld) 1.1 % 0-5 [facility] Work Phone: Glucose [Mass/Vol] 91 mg/dL 74-106 [facility] Work Phone: Neutrophils (Bld) [#/Vol] 8.5 10*3/uL 2.0-7.7 [facility] Work Phone: Neutrophils/100 WBC (Bld) 74.7 % 47-70 [facility] Work Phone: Potassium [Moles/Vol] 3.8 mmol/L 3.5-5.1 [facility] Work Phone: Protein [Mass/Vol] 7.5 g/dL 6.4-8.2 [facility] Work Phone: [phone] Sodium [Moles/Vol] 139 mmol/L 136-145 [facility] Work Phone: [phone] Triglyceride [Mass/Vol] 180 mg/dL <199 [facility] Work Phone: [phone] Comment on above: The drugs N-Acetylcy steine and Metamizole may falsely depress this assay.Serum Triglycerides Reference Interval Normal <150 mg/dL Borderline high 150 - 199 mg/dL High 200 - 499 mg/dL Very High > or = 500 mg/dL WBC (Bld) [#/Vol] 11.4 10*3/uL 4.4-11.0 [facility] Work Phone: [phone] Blood erythrocytes count (nu mber/volume)on 11-26-2021 RBC (Bld) [#/Vol] 5.13 10*6/uL 4.6-6.2 [facility] Work Phone: [phone] Blood hemoglobin measurement (mass/volume)on 11-26-2021 Hemoglobin (Bld) [Mass/Vol] 15.4 g/dL 13.0-16.5 [facility] Work Phone: [phone] Blood lymphocytes/100 leukoc yteson 11-26-2021 Lymphocytes/100 WBC (Bld) 12.2 % 19-41 [facility] Work Phone: [phone] Blood monocytes/100 leukocyt eson 11-26-2021 Monocytes/100 WBC (Bld) 10.9 % 0-10 [facility] Work Phone: [phone] Blood platelet mean volumeon 11-26-2021 Platelet mean volume (Bld) [Entitic vol] 10.2 fL 6.2-12.0 [facility] Work Phone: [phone] Determination of erythrocyte mean corpuscular volume (MCV)on 11-26-2021 MCV (RBC) [Entitic vol] 89.3 fL 80-94 [facility] Work Phone: [phone] Erythrocyte sedimentation ra negrita 11-26-2021 ESR (Bld) [Velocity] 42 mm/h 0-20 [facility] Work Phone: [phone] Hematocrit Auto (Bld) [Volum e fraction]on 11-26-2021 Hematocrit (Bld) [Volume fraction] 45.8 % 40-54 [facility] Work Phone: [phone] Laboratory - Chemistry and C hemistry - challengeon 11-26-2021 ALP [Catalytic activity/Vol] 78 U/L 45-117 [facility] Work Phone: [phone] ALT [Catalytic activity/Vol] 27 U/L 16-61 [facility] Work Phone: [phone] CO2 [Moles/Vol] 26.0 mmol/L 21.0-32.0 [facility] Work Phone: [phone] Globulin (S) [Mass/Vol] 4.2 g/dL 2.2-4.2 [facility] Work Phone: [phone] Urea nitrogen/Creatinine [Mass ratio] 17.6 mg/mg 10-20 [facility] Work Phone: [phone] Laboratory - Hematology and Cell countson 11-26-2021 Erythrocyte distribution width (RBC) [Entitic vol] 42.9 fL 35.1-43.9 [facility] Work Phone: [phone] Erythrocyte distribution width (RBC) [Ratio] 13.1 % 11.6-14.6 [facility] Work Phone: [phone] Immature granulocytes/100 WBC (Bld) 0.700 % 0.0-0.9 [facility] Work Phone: [phone] Comment on above: IG% - Immature Granu locytes (promyelocytes, myelocytes and metamyelocytes) > 1% indicates that a LEFT SHIFT is Present. MCH (RBC) [Entitic mass] 30.0 pg 27.0-32.0 [facility] Work Phone: [phone] Nucleated RBC/100 WBC (Bld) [Ratio] 0 % 0-5 [facility] Work Phone: [phone] MCHC Auto (RBC) [Mass/Vol]on 11-26-2021 MCHC (RBC) [Mass/Vol] 33.6 g/dL 32-36 [facility] Work Phone: No Panel Informationon 11-26 Estimated GFR (MDRD) Amer 94 mL/min >60 [facility] Work Phone: Comment on above: GFR Calc Estimated GFR (MDRD) Non-Af Amer 78 mL/min >60 [facility] Work Phone: Comment on above: Non- GFR Calc Thyroid Stimulating Hormone (TSH) 1.20 uIU/mL 0.358-3.74 [facility] Work Phone: [phone] Urine Microalbumin/Creatinine Ratio 4.8 mg/g CRE <30 [facility] Work Phone: [phone] Platelets bldon 11-26-2021 Platelets (Bld) [#/Vol] 410 10*3/uL 150-450 [facility] Work Phone: [phone] Serum or plasma albumin jason urement (mass/volume)on 11-26-2021 Albumin [Mass/Vol] 3.3 g/dL 3.2-5.0 [facility] Work Phone: [phone] Serum or plasma albumin/glob ulin mass ratioon 11-26-2021 Albumin/Globulin [Mass ratio] 0.8 {ratio} 0.9-2.4 [facility] Work Phone: [phone] Serum or plasma calcium jason urement (mass/volume)on 11-26-2021 Calcium [Mass/Vol] 8.8 mg/dL 8.5-10.1 [facility] Work Phone: [phone] Serum or plasma cholesterol in HDL measurement (mass/volume)on 11-26-2021 Cholesterol in HDL [Mass/Vol] 33 mg/dL >40 [facility] Work Phone: Comment on above: The drugs N-Acetylcy steine and Metamizole may falsely depress this assay. Reference Range HDL <40 mg/dL Low HDL Cholesterol HDL >or= 60 mg/dL High HDL Cholesterol Serum or plasma cholesterol in VLDL measurement (mass/volume)on 11-26-2021 Cholesterol in VLDL [Mass/Vol] 36 mg/dL 5-40 [facility] Work Phone: Serum or plasma creatinine m easurement (mass/volume)on 11-26-2021 Creatinine [Mass/Vol] 1.08 mg/dL 0.70-1.30 [facility] Work Phone: Comment on above: The validity of the calculated GFR & GFRAA in patients over 70 years has not been determined. Clinical correlation is essential. Serum or plasma low density lipoprotein (LDL) cholesterol measurement (mass/volume)on 11-26-2021 Cholesterol in LDL [Mass/Vol] 124 mg/dL 0-130 [facility] Work Phone: Serum or plasma urea nitroge n measurement (mass/volume)on 11-26-2021 Urea nitrogen [Mass/Vol] 19 mg/dL 7-18 [facility] Work Phone: Thin prep Papanicolaou smear with manual screeningon 11-26-2021 Thin prep Papanicolaou smear with manual screening 15 U/L 15-37 [facility] Work Phone: Thin prep Papanicolaou smear with manual screening 5 5-15 [facility] Work Phone: Thin prep Papanicolaou smear with manual screening 7.5 mg/L NO RANGE EST. [facility] Work Phone: Urine creatinine measurement (mass/volume)on 11-26-2021 Creatinine (U) [Mass/Vol] 157.00 mg/dL NO RANGE EST. [facility] Work Phone: .Auto Diffon 11-25-2019 Ammonia (P) [Mass/Vol] 0.80 10 3/mcL Normal 0.15-1.00 [facility] ([place]) Comment on above: Performed By: #### C BC, ADIFF, ANEU, CMP, GFR #### [address] [address] #### TROP #### [address] [address] Basophils (Bld) [#/Vol] 0.10 10 3/mcL Normal 0.00-0.19 [facility] ([place]) Comment on above: Performed By: #### C BC, ADIFF, ANEU, CMP, GFR #### [address] [address] #### TROP #### [address] [address] Basophils/100 WBC (Bld) 1.1 % Normal 0.0-2.5 [facility] ([place]) Comment on above: Performed By: #### C BC, ADIFF, ANEU, CMP, GFR #### [address] [address] #### TROP #### [address] [address] Eosinophils (Bld) [#/Vol] 0.40 10 3/mcL Normal 0.00-0. 40 [facility] ([place]) Comment on above: Performed By: #### C BC, ADIFF, ANEU, CMP, GFR #### [address] [address] #### TROP #### [address] [address] Eosinophils/100 WBC (Bld) 2.9 % Normal 0.0-7.0 [facility] ([place]) Comment on above: Performed By: #### C BC, ADIFF, ANEU, CMP, GFR #### [place] [address] #### TROP #### [address] [address] Lymphocytes (Bld) [#/Vol] 3.70 10 3/mcL Normal 0.77-3. 85 [facility] ([place]) Comment on above: Performed By: #### C BC, ADIFF, ANEU, CMP, GFR #### [address] [address] #### TROP #### [address] [address] Lymphocytes/100 WBC (Bld) 28.0 % Normal 10.0-50.0 [facility] ([place]) Comment on above: Performed By: #### C BC, ADIFF, ANEU, CMP, GFR #### [address] [address] #### TROP #### [address] [address] Monocytes/100 WBC (Bld) 6.0 % Normal 1.7-13.0 [facility] ([place]) Comment on above: Performed By: #### C BC, ADIFF, ANEU, CMP, GFR #### [address] [address] #### TROP #### [address] [address] Neutrophils/100 WBC (Bld) 62.0 % Normal 37.0-80.0 [facility] ([place]) Comment on above: Performed By: #### C BC, ADIFF, ANEU, CMP, GFR #### [place] [address] #### TROP #### [address] [address] .GFRon 11-25-2019 GFR Non- 66 ml/min/1.73sqm Normal [facility] ([place]) Comment on above: Result Comment: GFR Population [...] #### C BC, ADIFF, ANEU, CMP, GFR ####[address] [address]#### TROP ####[address] [address] GFR 80 ml/min/1.73sqm Normal [facility] ([place]) Comment on above: Result Comment: GFR Population [...] #### C BC, ADIFF, ANEU, CMP, GFR ####[place] [address]#### TROP ####[place] [address] .NEUABSon 11-25-2019 Neutrophils (Bld) [#/Vol] 8.30 10 3/mcL High 2.85-6. 16 [facility] ([place]) Comment on above: Performed By: #### C BC, ADIFF, ANEU, CMP, GFR #### [address] [address] #### TROP #### [place] [address] CBCon 11-25-2019 Erythrocyte distribution width (RBC) [Ratio] 14.1 % Normal 11.5-14.5 [facility] ([place]) Comment on above: Performed By: #### C BC, ADIFF, ANEU, CMP, GFR #### [place] [id number] #### TROP #### [place] [address] Hematocrit (Bld) [Volume fraction] 48.1 % Normal 42.0-52.0 [facility] ([place]) Comment on above: Performed By: #### C BC, ADIFF, ANEU, CMP, GFR #### [address] [address] #### TROP #### [address] [address] Hemoglobin (Bld) [Mass/Vol] 16.1 G/dL Normal 14.0-18.0 [facility] ([place]) Comment on above: Performed By: #### C BC, ADIFF, ANEU, CMP, GFR #### [place] [address] #### TROP #### [address] [address] MCH (RBC) [Entitic mass] 29.8 pg Normal 27.0-31.2 [facility] ([place]) Comment on above: Performed By: #### C BC, ADIFF, ANEU, CMP, GFR #### [place] [address] #### TROP #### [address] [address] MCHC (RBC) [Mass/Vol] 33.5 G/dL Normal 31.8-35.4 [facility] ([place]) Comment on above: Performed By: #### C BC, ADIFF, ANEU, CMP, GFR #### [place] [address] #### TROP #### [place] [address] MCV (RBC) [Entitic vol] 89.0 fL Normal 80.0-94.0 [facility] ([place]) Comment on above: Performed By: #### C BC, ADIFF, ANEU, CMP, GFR #### [place] [address] #### TROP #### [address] [address] Platelet mean volume (Bld) [Entitic vol] 8.0 fL Normal 7.4-10.4 [facility] ([place]) Comment on above: Performed By: #### C BC, ADIFF, ANEU, CMP, GFR #### [address] [address] #### TROP #### [address] [address] Platelets (Bld) [#/Vol] 208 10 3/mcL Normal 130-400 [facility] ([place]) Comment on above: Performed By: #### C BC, ADIFF, ANEU, CMP, GFR #### [address] [address] #### TROP #### [address] [address] RBC (Bld) [#/Vol] 5.41 10 6/mcL Normal 4.04-6.13 [facility] ([place]) Comment on above: Performed By: #### C BC, ADIFF, ANEU, CMP, GFR #### [address] [address] #### TROP #### [address] [address] WBC (Bld) [#/Vol] 13.30 10 3/mcL High 4.60-10.80 [facility] ([place]) Comment on above: Performed By: #### C BC, ADIFF, ANEU, CMP, GFR #### [address] [address] #### TROP #### [address] [address] CMPon 11-25-2019 Albumin [Mass/Vol] 3.6 G/dL Normal 3.5-5.0 [facility] ([place]) Comment on above: Performed By: #### C BC, ADIFF, ANEU, CMP, GFR ####[address] [address]#### TROP ####[address] [address] Albumin/Globulin [Mass ratio] 1.2 {ratio} Normal 1.1-2.5 [facility] ([place]) Comment on above: Performed By: #### C BC, ADIFF, ANEU, CMP, GFR ####[facility] [place] [id number]#### TROP ####[address] [address] ALP [Catalytic activity/Vol] 63 U/L Normal 40-135 [facility] ([place]) Comment on above: Performed By: #### C BC, ADIFF, ANEU, CMP, GFR ####[facility] [place], [place] [id number]#### TROP ####[address] [address] ALT [Catalytic activity/Vol] 27 U/L Normal 10-35 [facility] ([place]) Comment on above: Performed By: #### C BC, ADIFF, ANEU, CMP, GFR ####[place] [address] [place] [address]#### TROP ####[address] [address] AST [Catalytic activity/Vol] 19 U/L Normal 10-40 [facility] ([place]) Comment on above: Performed By: #### C BC, ADIFF, ANEU, CMP, GFR ####[place] [address]#### TROP ####[address] [address] Bili Total 0.3 mg/dL Normal 0.2-1.0 [facility] ([place]) Comment on above: Result Comment: Use of this assay is not recommended for patients undergoing treatment with eltrombopag due to the potential for falsely elevated results. Performed By: #### C BC, ADIFF, ANEU, CMP, GFR ####[place] [id number] [place] [address]#### TROP ####[address] [address] Calcium [Mass/Vol] 8.2 mg/dL Low 8.4-10.2 [facility] ([place]) Comment on above: Performed By: #### C BC, ADIFF, ANEU, CMP, GFR ####[place] [id number]#### TROP ####[address] [address] Chloride [Moles/Vol] 97 mmol/L Low 98-107 [facility] ([place]) Comment on above: Performed By: #### C BC, ADIFF, ANEU, CMP, GFR ####[place] [address]#### TROP ####[place] [address] CO2 [Moles/Vol] 23 mmol/L Normal 22-29 [facility] ([place]) Comment on above: Performed By: #### C BC, ADIFF, ANEU, CMP, GFR ####[place] [address]#### TROP ####[place] [address] Creatinine [Mass/Vol] 1.20 mg/dL Normal 0.70-1.30 [facility] ([place]) Comment on above: Performed By: #### C BC, ADIFF, ANEU, CMP, GFR ####[place] [address]#### TROP ####[place] [address] Electrolyte Balance 12.0 mEq/L Normal [facility] ([place]) Comment on above: Performed By: #### C BC, ADIFF, ANEU, CMP, GFR ####[place] [address]#### TROP ####[place] [address] Globulin (S) [Mass/Vol] 3.1 G/dL Normal [facility] ([place]) Comment on above: Performed By: #### C BC, ADIFF, ANEU, CMP, GFR ####[place] [id number] [place] [id number]#### TROP ####[place] [address] Glucose [Mass/Vol] 105 mg/dL Normal 70-105 [facility] ([place]) Comment on above: Performed By: #### C BC, ADIFF, ANEU, CMP, GFR ####[address] [address]#### TROP ####[address] [address] Potassium [Moles/Vol] 3.4 mmol/L Low 3.5-5.1 [facility] ([place]) Comment on above: Performed By: #### C BC, ADIFF, ANEU, CMP, GFR ####[place] [address]#### TROP ####[address] [address] Protein [Mass/Vol] 6.7 G/dL Normal 6.4-8.2 [facility] ([place]) Comment on above: Performed By: #### C BC, ADIFF, ANEU, CMP, GFR ####[place] [address]#### TROP ####[address] [address] Sodium [Moles/Vol] 132 mmol/L Low 136-145 [facility] ([place]) Comment on above: Performed By: #### C BC, ADIFF, ANEU, CMP, GFR ####[place] [id number]#### TROP ####[address] [address] Urea nitrogen [Mass/Vol] 13 mg/dL Normal 7-18 [facility] ([place]) Comment on above: Performed By: #### C BC, ADIFF, ANEU, CMP, GFR ####[address] [address]#### TROP ####[address] [address] Urea nitrogen/Creatinine [Mass ratio] 11 ratio Normal 7-27 [facility] ([place]) Comment on above: Performed By: #### C BC, ADIFF, ANEU, CMP, GFR ####[address] [place], [place] [address]#### TROP ####[id number] [place] [address] ABD/PELVIS W/ IV CONTRAST ONLYon 11-25-2019 [...] 11/25/2019 12:02:57 AM Ordering Provider:Carlos Enrique Constantino [facility] ([place]) CT HEAD OR BRAIN W/O CONTRMICHAEL Ton [...] 11/24/2019 11:53:05 PM Ordering Provider:Carlos Enrique Constantino [facility] ([place]) CT MAXILLOFACIAL W/O CONTRAS [facility] 11-25-2019 CT MAXILLOFACIAL W/O CONTRAST ORIGINAL CT [...] 11/25/2019 1:49:36 AM Ordering Provider:Carlos Enrique Constantino [facility] ([place]) CT SPINE CERVICAL W/O SAURABH Ibarra 11-25-2019 [...] 11:50:05 PM Ordering Provider:Carlos Enrique Constantino Normal [facility]) TROPon 11-25-2019 Troponin I.cardiac [Mass/Vol] ng/mL Normal 0.000-0.040 [facility] ([place]) Comment on above: Result Comment: Trop onin I reference range: 0.00-0.040 ng/mL Negative and non-diagnostic. >0.040 ng/mL Consistent with cardiac damage, increased clinical risk and possibility of myocardial infarction. Serial measurements, a rise & fall in test results, clinical history, appropriate symptoms and/or ECG changes may help assess possibility of NE. *Other non-acute coronary syndrome conditions such as CHF, myocarditis, pulmonary emboli, sepsis and cardiac surgery could result in myocardial damage and increased troponin levels. Performed By: #### C BC, ADIFF, ANEU, CMP, GFR #### [facility] [address] [place], [place] [address] #### TROP #### [place] [address] XR CHEST 1 VIEWon 11-25-2019 XR CHEST [...] 11/24/2019 11:23:30 PM Ordering Provider:Carlos Enrique Constantino [facility]) XR PELVIS 1 OR 2 VIEWSon [...] 11/24/2019 11:24:17 PM Ordering Provider:Carlos Enrique Constantino [facility]) Vital Signs Date Time Vital Sign Value Performing Clinician Marito estrella 11-27-2021 19:23-0400 Diastolic blood pressure 88 mm[Hg] [facility] Work Phone: 11-27-2021 19:23-0400 Heart rate 91 /min [facility] Work Phone: 11-27-2021 19:23-0400 Respiratory rate 18 /min [facility] Work Phone: 11-27-2021 19:23-0400 SaO2% (BldA) [Mass fraction] 96 % [facility] Work Phone: 11-27-2021 19:23-0400 Systolic blood pressure 131 mm[Hg] [facility] Work Phone: 11-27-2021 16:34-0400 Body height 182.[address] [facility] Work Phone: 11-27-2021 16:34-0400 Body mass index (BMI) [Ratio] 31 kg/m2 [facility] Work Phone: 11-27-2021 16:34-0400 Body temperature 98.5 [degF] [facility] Work Phone: 11-27-2021 16:34-0400 Body weight 103.[address] [facility] Work Phone: Encounters Encounter Date Encounter Type Care Provider Facility Start: 10-11-2024 End: 10-11-[address] Manny Barber MD Work Phone: [facility] Work Phone: Start: 10-11-2024 End: 10-11-[address] Manny Barber MD -Laboratory Specimen Work Phone: Start: 10-11-2024 End: 10-11-2024 ambulatory Manny Barber Facility:[facility] Start: 10-09-2024 End: 10-09-[address] Manny Barber MD Work Phone: [facility] Work Phone: Start: 10-09-2024 End: 10-09-[address] Manny Barber MD -Laboratory [facility] Start: 10-09-2024 End: 10-09-2024 ambulatory Manny Barber Facility:[facility] Start: 08-29-2023 End: 08-29-[address] Manny Barber Work Phone: [facility] Work Phone: Start: 08-29-2023 End: 08-29-[address] Manny Barber Work Phone: [facility] Work Phone: Start: 07-28-2023 End: 07-28-[address] Manny Barber Work Phone: [facility] Work Phone: Start: 07-28-2023 End: 07-28-[address] Manny Barber Work Phone: [facility] Work Phone: Start: 06-10-2023 End: 06-10-[address] Manny Barber Work Phone: [facility] Work Phone: Start: 06-10-2023 End: 06-10-[address] [facility] Work [facility]: Start: 05-10-2023 End: 05-10-[address] Manny Barber Work Phone: [facility] Work Phone: Start: 11-27-2021 End: 11-27-2021 Emergency department patient visit [facility] Start: 11-27-2021 End: 11-27-2021 [facility] Start: 11-26-2021 End: 11-26-2021 Patient encounter procedure [facility] Date Procedure Procedure Detail [...] Date Care Activity Detail Author Start: 11-27-2021 [facility] Work Phone: Patient Education ED Dyspnea [facility] Work Phone: Patient referral [facility] Work Phone: Payers Date Payer Category Payer Self-pay [id number] 2024 Unknown [id number] Unknown [id number] Unknown [id number] Social History Date Type Detail Facility Start: 11-27-2021 End: 05-10-2023 Tobacco smoking status NHIS Unknown if ever smoked [facility] Start: 1975 Sex Assigned At Male W [facility] Start: 05-10-2023 Tobacco smoking stat us DCIS Smokes tobacco daily (finding) [facility] Discharge summary 08-01-2023 Note Date & Type Note Facility 08-01-2023 Discharge summary Note Date/Time August 01, 2023 6:37 pm [facility] [address] [place] [address]. [address] [place] [address] / REHABILITATION SERVICES DISCHARGE SUMMARY MR#: [id number] Acct: [id number] Name: KHANG VAZ Rep #: [id number] : 1975 48 From: Shanna Wheeler PT, Cert. MDT Referring Dr.: Dr. Manny Barber MD Status: REG RCR Insurance: [employer] SELF PAY INSURANCE Discharge Summary D/C summary: [...] please feel free to call me at [phone]. Thank you for the referral of thispatient. Sincerely, Shanna Wheeler, PT, Cert MDT Balance/Gait/Functional tests Balance/Special Test Scores Oswestry Low Back Score: 19 Improvement % Improvement: 10 <Electronically signed by Shanna Wheeler PTSunny. MDT> 08/01/23 1837 CC: Dr. 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) acute [facility] Work Phone: Reason for referral (narrative) Note Date & Type Note Facility Reason for referral (narrative) No reason for referral information available [facility] Work Phone: Summary Purpose Family History No Family History Records FoundNo Family History Records Found Advance Directives No Advanced Directives Records Found Advance Directive Response Recorded Date/ Time Living Will No November 27, 2021 5:17pm Power of Business Segment Manager No November 27 5:17pm Advance Directive Response Recorded Date/ Time Living Will No November 27, 2021 4:17pm Power of Business Segment Manager No November 27 4:17pm Chief Complaint and [...] and content) DATE CREATED AUTHOR 01/01/2020 [facility] ([place]) DATE CREATED AUTHOR AUTHOR'S ORGANIZ ATION 10/17/[address] [facility] Goals (unrecognized section and content) Goals may [...] BE BASED ON THE PRIMARY CLINICAL RECORDS. [facility] [employer] provides no warranty or guarantee of the accuracy or completeness of information in this document.
[2025-02-20 18:34] LABS: AST(SGOT) 26 U/L (<=37); Alanine Aminotransfer ALT/SGPT 40 U/L (<=46); Albumin, Serum 4.4 g/dL (3.5-5.0); Alkaline Phosphatase 74 U/L (40-129); Anion Gap 13 (5-15); BUN 20 mg/dL (4-19); BUN/Creat Ratio 18.6 RATIO (10-20); CRP 15.60 mg/L (0.0-3.0); Calcium,Total 10.0 mg/dL (7.6-11.0); Carbon Dioxide 23.7 mmol/L (21.0-32.0); Chloride 102 mmol/L (98-108); Globulin 3.5 g/dL (2.2-4.2); Glucose 101 mg/dL (70-99); Magnesium 2.4 mg/dL (1.5-2.2); Potassium 4.6 mmol/L (3.3-5.1)
== END | disposition home or self-care (01) ==
LOC: MFPLAB 16:44
PROVIDERS: PCP Family Medicine; Visit Provider Family Medicine
DX: M54.50 Low back pain, unspecified (principal)
CPT/HCPCS: 36415; 80053; 83735; 85027; 86140